=== PATIENT | male | born 1930 | race Caucasian/White ===

== ENCOUNTER 2016-05-24 12:31 | Emergency (ER) | payer OTHER ==
[~2016-05-24 12:31] MED LIST: CHILDREN'S ASPI81 M1 PO; CIPRO 500MG TA500 MG PO; FLAG500 PO; FLUZONE HI180 MCG/02 IM; HYDREA500 M1 PO; NEXIUM 40MG40 MG PO; PROPECIA 1MG1 MG PO
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
[2016-05-24 13:53] LABS: ABSOLUTE BASOPHIL COUNT 0.2 /CUMM (0.0-0.2); ABSOLUTE EOSINOPHIL COUNT 0 /CUMM (0.0-0.7); ABSOLUTE GRANULOCYTE CT 12.4 /CUMM (1.4-6.5); ABSOLUTE LYMPH COUNT 0.7 /CUMM (1.2-3.4); ABSOLUTE MONOCYTE COUNT 0.1 /CUMM (0.10-0.60); BASOPHIL % 1.1 % (0.0-2.0); EOSINOPHIL % 0.2 % (0-5); GRANULOCYTE % 92.2 % (42.2-75.2); MEAN CORPUSCULAR HGB 43.3 PG (27.0-31.0); MEAN CORPUSCULAR HGB CONC 33.1 G/DL (33.0-37.0); MEAN CORPUSCULAR VOLUME 130.8 FL (80.0-94.0); MEAN PLATELET VOLUME 6.9 FL (7.4-10.4); PLATELET COUNT 172 /CUMM (130-400); RBC DISTRIBUTION WIDTH 14.5 % (11.5-14.5); RED BLOOD CELL CT 3.52 /CUMM (4.70-6.10); WHITE BLOOD CELL COUNT 13.5 /CUMM (4.8-10.8)
--- NOTE | 2016-05-24 14:11 | CT SCAN REPORT ---
EXAMINATION: EXAM: CT scan of the head, facial bones and cervical spine. INDICATION: Reason for Study:
Presumptive Dx: FALL, FACIAL STRIKE
Signs Symptoms: RM 17
TECHNIQUE: A noncontrast CT scan was performed from the skull base to the vertex. Facial bone CT. A noncontrast CT scan of the cervical spine was performed from the base of the skull through T1 at 2.5 mm and 1.25 mm collimation. Coronal and sagittal reformats were obtained at the acquisition workstation. Dose length product is 1465 mGy-cm. COMPARISON: None FINDINGS: Head: There is no evidence of acute intracranial hemorrhage or territorial infarction. Gu-white matter differentiation is preserved. No abnormal mass effect or midline shift. No extra-axial fluid collections. No abnormal attenuation is demonstrated within the brain parenchyma. Scattered periventricular and deep white matter hypodensities consistent with microangiopathy. The ventricles and sulcal spaces are proportional without hydrocephalus. Proportional prominence of the ventricles and sulcal spaces. Soft tissue swelling overlying the left frontal region without evidence of underlying fracture. Orbits intact. There is considerable sinus disease throughout. CT FACIAL BONES: No periorbital emphysema. Pansinusitis again noted. Bony orbital margins are essentially intact. Bilateral nasal bone fractures of uncertain chronicity. There is overlying soft tissue swelling suggesting acute chronicity. Cervical Spine: The atlantooccipital and atlantoaxial articulations remain well aligned. Straightening of the normal cervical lordosis. Severe spondylosis most notable at C5-C6 and C6-C7 where there is marked disc space narrowing and minor retrolisthesis on a degenerative basis. Posterior elements appear intact. Spinous processes intact. There is no prevertebral soft tissue swelling. The thyroid gland and remaining cervical soft tissues are normal in appearance. The lung apices demonstrate no abnormalities. IMPRESSION: No acute intracranial pathology. Bilateral nasal bone fractures likely acute. Pansinusitis. Advanced spondylosis but no fracture of the cervical spine.
--- NOTE | 2016-05-24 15:10 | RADIOLOGY REPORT ---
EXAMINATION: XR HAND, LEFT X-RAY KNEE, RIGHT CLINICAL INFORMATION: Status post fall. COMPARISON: X-ray right wrist dated 01/13/2014 and x-ray right knee dated 03/19/2008 TECHNIQUE: AP, lateral, and oblique views of the left hand. 4 views of the right knee FINDINGS: LEFT HAND There is acute dorsal medial dislocation of the distal phalanx noted at the DIP joint fifth finger . Associated compression fracture anterior aspect base of the distal phalanx. Additional avulsion fracture with linear fracture fragment noted proximal to the base of the distal phalanx. Surrounding soft tissue swelling. Degenerative changes noted in multiple interphalangeal joints and first CMC joint. RIGHT KNEE Status post right knee arthroplasty. Intact hardware. No acute fracture or dislocation. Small joint effusion. Atherosclerotic disease with intimal calcification of the popliteal and proximal calf vessels. IMPRESSION: 1. Dorsal medial dislocation with associated fracture DIP joint fifth finger. 2. Impaction and avulsion fracture base of the distal phalanx. 3. No acute osseous injury involving the right knee.
--- NOTE | 2016-05-24 15:38 | RADIOLOGY REPORT ---
EXAMINATION: XR FINGER, LEFT CLINICAL INFORMATION: Status post reduction fifth digit COMPARISON: 05/24/2016 TECHNIQUE: 2 views of the left fifth digit FINDINGS: There has been relocation at the fifth DIP joint. Alignment is near anatomic with some mild residual dorsal subluxation of the distal phalanx relative to the middle phalanx seen on the lateral view. No discrete fracture lines are visualized. IMPRESSION: Reduction of the previously seen dislocation at the fifth DIP joint with residual mild dorsal subluxation of the distal phalanx with respect to the middle phalanx, but otherwise anatomic alignment. No discrete fracture lines are evident.
[2016-05-24 16:00] VITALS: BP 172/78
[2016-05-24] MEDS ORDERED: OMEPRAZOLE40 M1 PO (16:24)
[2016-05-24] MEDS ORDERED: KEFLEX500 M1 PO (16:44)
== END 2016-05-24 17:10 ==
LOC: ERH 12:31
PROVIDERS: Physician Assistant
DX: S63.277A Dislocation of unspecified interphalangeal joint of left little finger, initial encounter (principal); S62.607A Fracture of unspecified phalanx of left little finger, initial encounter for closed fracture; S61.217A Laceration without foreign body of left little finger without damage to nail, initial encounter; S00.83XA Contusion of other part of head, initial encounter; M25.561 Pain in right knee; T14.8 Other injury of unspecified body region; W19.XXXA Unspecified fall, initial encounter
CPT/HCPCS: 73130-LT; 73140-LT; 73562-RT; 90471; 90714

== ENCOUNTER 2016-07-09 14:15 | Emergency (ER) | payer OTHER ==
[~2016-07-09] VITALS: Ht 175.3 cm; Wt 84.4 kg
[~2016-07-09 14:15] MED LIST changes: +KEFLEX500 M1 PO; +OMEPRAZOLE40 M1 PO
== END 2016-07-09 14:38 | disposition admitted as inpatient to this hospital (09) ==
LOC: ERH 14:15
DX: M79.645 Pain in left finger(s) (principal)

== ENCOUNTER 2016-09-04 10:47 | Emergency (ER) | payer OTHER ==
[~2016-09-04] VITALS: Ht 172.7 cm; Wt 83.5 kg
[2016-09-04 11:00] VITALS: BP 168/79
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
--- NOTE | 2016-09-04 12:05 | RADIOLOGY REPORT ---
EXAMINATION: XR TOES, RIGHT CLINICAL INFORMATION: Pain over the second toe. COMPARISON: Left foot radiographs 01/05/2016. TECHNIQUE: 3 views of the right toes were obtained. FINDINGS: There is slight medial subluxation of the base of the proximal second phalanx with respect to the metatarsal head. No clear evidence of acute fracture. There is degenerative narrowing of the first metatarsophalangeal joint space. Bones of midfoot are not well assessed. There is plantar calcaneal spurring. Monckeberg-type medial vascular calcifications are noted. Soft tissues are unremarkable. No evidence of a retained radiodense foreign body. IMPRESSION: Slight medial subluxation of the base of the proximal second phalanx with respect to the metatarsal head. No clear evidence of acute fracture.
== END 2016-09-04 12:38 ==
LOC: ERH 10:47
DX: S90.414A Abrasion, right lesser toe(s), initial encounter (principal); S90.121A Contusion of right lesser toe(s) without damage to nail, initial encounter; W22.8XXA Striking against or struck by other objects, initial encounter; Y93.9 Activity, unspecified; Y92.9 Unspecified place or not applicable
CPT/HCPCS: 73660-RT

== ENCOUNTER 2017-12-04 11:51 | Inpatient (IN) | payer OTHER ==
[~2017-12-04] VITALS: Ht 175.3 cm; Wt 79.5 kg
[~2017-12-04 11:51] MED LIST changes: +HYDROXYUREA500 M1 PO
[2017-12-04 12:36] LABS: ABSOLUTE LYMPH COUNT 1.3 /CUMM (1.2-3.4)
[2017-12-04 12:42] LABS: ABSOLUTE BASOPHIL COUNT 0 /CUMM (0.0-0.2); ABSOLUTE EOSINOPHIL COUNT 0.3 /CUMM (0.0-0.7); BASOPHIL % 0.1 % (0.0-2.0); EOSINOPHIL % 0.5 % (0-5); GRANULOCYTE % 94.9 % (42.2-75.2); HEMATOCRIT 46.3 % (42-52); MEAN CORPUSCULAR HGB 36.7 PG (27.0-31.0); MEAN CORPUSCULAR HGB CONC 33.8 G/DL (33.0-37.0); MEAN CORPUSCULAR VOLUME 108.7 FL (80.0-94.0); PLATELET COUNT 275 /CUMM (130-400); RBC DISTRIBUTION WIDTH 15.1 % (11.5-14.5); RED BLOOD CELL CT 4.26 /CUMM (4.70-6.10)
[2017-12-04 12:46] LABS: WHITE BLOOD CELL COUNT 50.6 /CUMM (4.8-10.8)
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
--- NOTE | 2017-12-04 14:00 | RADIOLOGY REPORT ---
EXAMINATION: XR CHEST CLINICAL INFORMATION: Dyspnea. Assess for cardiopulmonary process or hiatal hernia. COMPARISON: There are no recent prior studies available for comparison. Comparison was made to a chest x-ray 02/20/2010. TECHNIQUE: Frontal and lateral views of the chest were obtained. FINDINGS: The lung gillespie are well expanded and appear clear bilaterally. The cardiac silhouette is normal. There is mild unfolding of the aortic arch on the current study. There are no pleural effusions or pneumothorax. The central pulmonary vasculature is normal. The hilar regions appear normal. There are no acute osseous findings. IMPRESSION: 1. There are no acute cardiopulmonary findings.
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
--- NOTE | 2017-12-04 17:37 | CT SCAN REPORT ---
EXAMINATION: CT ANGIOGRAPHY CHEST CT ABDOMEN AND PELVIS WITH CONTRAST CLINICAL INFORMATION: Chest pain. Shortness of breath. Periumbilical epigastric pain. COMPARISON: Chest x-ray 12/04/2017. Abdomen 02/03/2017. CT scan pelvis 09/19/2015. CT scan abdomen and pelvis 05/01/2015. TECHNIQUE: A noncontrast localizer was performed, followed by the administration of 95 mL Optiray [address] of the chest was then performed. Coronal and sagittal reformatted and 3-D technique MIP images of the chest were completed at the CT scanner and reviewed on the PACS workstation. No adverse effects were reported. Images were then performed through the abdomen and pelvis. Coronal and sagittal reformatted images performed at CT scanner by technologist. DLP: 1349.34 mGy-cm. FINDINGS: Patient was imaged with the arms at the side which causes artifact. 1. CTA CHEST: Vascular: The main pulmonary artery, secondary and tertiary branches of the pulmonary artery are normally opacified with no evidence of pulmonary embolism. The aorta and great vessels are unremarkable. Mediastinum: There is diffuse thickening of the esophageal wall from thoracic inlet through the GE junction. There is no inflammation of the mediastinum. No mediastinal mass. No significant lymphadenopathy. There is no pericardial effusion. Lungs: The lungs are clear. No nodule or infiltrate. Central bronchial airways open. Fluid: There is a minimal dependent right pleural effusion. There is no left pleural effusion. Axilla: No significant lymphadenopathy. 2. CT SCAN ABDOMEN PELVIS: Liver, Gallbladder, and Biliary Tree: There is mild low attenuation of liver parenchyma due to fatty change. There is no focal liver lesion. There is no intrahepatic bile duct dilatation. Right lobe of liver measures 19 cm superior inferior. The gallbladder is unremarkable with no evidence of radiopaque gallstones, gallbladder wall thickening, or obvious pericholecystic inflammatory changes. Pancreas: Unremarkable. Spleen: The spleen is mildly enlarged measuring 14 cm AP. No focal splenic lesion. Adrenal Glands: Unremarkable. Kidneys and Ureters: There are parapelvic cysts in both kidneys. There is no renal or ureteral calculus. There is no hydronephrosis. Bladder: Unremarkable. Gastrointestinal Tract: There is diverticulosis of the colon. The diverticula are most significant in the left colon and sigmoid but are present throughout the colon. There is no diverticulitis. There is no edema in the pericolonic fat. There is mild bowel wall thickening of the distal rectum and sigmoid again without edema in the surrounding fat. This is of uncertain significance. There is no obstruction. There is a small volume of scattered stool through the colon. The appendix is not visualized. The small-bowel loops are unremarkable. Abdominal Wall: No significant hernia is appreciated. Lymph Nodes: Normal. Vascular: There are atherosclerotic vascular wall calcifications of the abdomen and pelvis. There is no aneurysm of the aorta. Pelvic Viscera: The prostate measures 4.5 cm transverse. The seminal vesicles are unremarkable. Osseous Structures: No acute osseous abnormality. There is degenerative spondylosis of thoracic and lumbar spine with disc height narrowing, endplate spurring and facet joint arthrosis. There is a levoscoliosis of the mid lumbar spine. IMPRESSION: 1. No evidence of pulmonary embolism. Trace right pleural effusion layering dependently. The lungs are clear. 2. Diffuse thickening of the esophageal wall. Question of an esophagitis. No edema within the mediastinal fat. No inflammation of the mediastinum. 3. There is mild bowel wall thickening of the distal rectum and sigmoid without pericolonic edema. Of uncertain significance. No bowel obstruction. There is diverticulosis of the colon without diverticulitis. 4. Mild splenomegaly.
--- NOTE | 2017-12-04 18:03 | PN- Att Addend ---
Attending Addendum Attending Brief Note 86-year-old white male poor historian and probably not compliant with his medications. With a history of blood dyscrasia has not taken his medication for at least a year. Her daughter is place is very warm and does not like to use air conditioning. For a few days has been complaining of not feeling well having some hiccups some left chest discomfort especially when he has the hiccups. Maybe some urinary symptoms he cannot be specific with anything and comes to the emergency room his white count is higher than usual even though he normally runs a high white count. Will evaluate to see if there is any acute infection. Will have a swallowing evaluation he has been complaining of dysphagia and with the hiccups make sure there is no inflammation of the phrenic nerve. 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 Will hold off with antibiotics for now until we have any definite sign of infection Current Medications Sig/Som Start time Last Medication Dose Route Stop Time Status Admin Acetaminophen 650 MG Q8P PRN 12/04 1530 AC PO Aspirin 81 MG DAILY 12/05 0900 AC PO Aspirin 325 MG ONCE ONE 12/04 1545 DC 12/04 PO 12/04 1546 1600 Aspirin 0 .STK-MED ONE 12/04 1538 DC PO Heparin Sodium 5,000 UNIT Q8 12/04 2200 AC (Porcine) SC Morphine Sulfate 2 MG Q8P PRN 12/04 1700 AC IV Omeprazole 40 MG DAILY AC 12/05 0700 AC PO Ondansetron HCl 4 MG Q6P PRN 12/04 1530 AC IV Sodium Chloride 1,000 ML ONCE ONE 12/04 1530 AC 12/04 IV 12/05 0129 1600 Tamsulosin HCl 0.4 MG DAILY 12/05 0900 AC PO Tramadol HCl 50 MG Q8P PRN 12/04 1700 AC PO Laboratory Tests 12/04/17 1315: Anion Gap 9, Estimated GFR > 60, BUN/Creatinine Ratio 13.0, Glucose 144 H, Serum Osmolality 281 L, Lactic Acid 1.9, Uric Acid 8.4, Calcium 9.0, Magnesium 2.1, Total Bilirubin 1.2, AST 18, ALT 30, Alkaline Phosphatase 94, Troponin I < 0.01, Total Protein 8.0, Albumin 4.7, Globulin 3.3, Albumin/Globulin Ratio 1.4, Lipase 17 L, Free T4 1.27, Total T3 Pending, TSH &T3 &Free T4 Intrp 5.400 H 12/04/17 1220: CBC w Diff MAN DIFF ORDERED, RBC 4.26 L, MCV 108.7 H, MCH 36.7 H, MCHC 33.8, RDW 15.1 H, MPV 8.0, Gran % 94.9 H, Lymphocytes % 2.6 L, Monocytes % 1.9, Eosinophils % 0.5, Basophils % 0.1, Absolute Granulocytes 48.0 H, Segmented Neutrophils 84 H, Band Neutrophils 6 H, Absolute Lymphocytes 1.3, Lymphocytes 6 L, Monocytes 3, Absolute Monocytes 1.0 H, Absolute Eosinophils 0.3, Absolute Basophils 0, Metamyelocytes 1, Platelet Estimate ADEQUATE, Normocytic RBCs VERIFIED, Normochromic RBCs VERIFIED, Polychromasia Vital Signs Date Time Temp Pulse Resp B/P B/P Pulse O2 O2 Flow FiO2 Mean Ox Delivery Rate 12/04 1738 98.2 90 18 129/76 95 Room Air Room Air 12/04 1249 97 Room Air Room Air 12/04 1201 97.4 84 16 181/73 95 Room Air Intake & Output 12/04 1600 Intake Total Output Total Balance Patient 185 lb Weight Chest x-ray showed no acute pathology. Ditty CT scan showed no pulmonary emboli but show some abnormalities in the esophagus. Patient is having some dysphagia and having some hiccups. Will probably need a GI evaluation while in the hospital.
[2017-12-04 18:16] VITALS: BP 112/54
[2017-12-04 21:35] VITALS: BP 130/58
--- NOTE | 2017-12-05 05:38 | PN- Housestaff ---
Subjective Follow-up For: Pickups, chest pain, abdominal pain Complaints: no complaints Tele-Events Since Last Visit: No significant telemetry events noted Subjective: Patient was examined bedside , he was trying to sleep when i went in, however woke up, he is hard of hearing and could not hear my questions which limited my examination. However complained of severe abdominal pain and hiccups . th pain is substernal / epigastric. The hiccups limited the examination. Review of Systems Constitutional: Reports: see HPI. Cardiovascular: Reports: chest pain. Denies: edema, orthopena, palpitations, peripheral edema, syncope. Respiratory: Reports: short of breath. Denies: cough, hemoptysis, orthopnea, sputum production, stridor, wheezing. Gastrointestinal: Reports: abdominal pain. Denies: bloating, constipation, diarrhea, distention, bowel incontinence, melena, changes in stool, vomiting, steatorrhea. Genitourinary: Denies: dysuria, frequency, hematuria, hesitation, nocturia. Objective Last 24 Hrs of Vital Signs/I&O Vital Signs Date Time Temp Pulse Resp B/P B/P Pulse O2 O2 Flow FiO2 Mean Ox Delivery Rate 12/05 1458 98.7 82 18 120/70 93 Room Air 12/05 1039 90 130/70 12/05 0600 98.2 78 18 132/64 93 Room Air 12/04 2144 Room Air 12/04 2135 98.1 73 18 130/58 95 Room Air Intake & Output 12/05 1600 12/05 0800 12/05 0000 Intake Total 480 800 350 Output Total 400 100 375 Balance 80 700 -25 Intake, IV 800 350 Intake, Oral 480 Output, Urine 400 100 375 Patient 174 lb Weight Weight Bed scale Measurement Method Physical Exam General Appearance: Alert, Oriented X3, Cooperative HEENT: HARD OF HEARING Cardiovascular: Regular Rate, No Murmurs Lungs: Clear to Auscultation, Normal Air Movement Abdomen: Soft, TENDERNESS PRESENT Neurological: Normal Speech, Strength at 5/5 X4 Ext, Normal Tone, Sensation Intact Current Medications: Current Medications Sig/Som Start time Last Medication Dose Route Stop Time Status Admin Acetaminophen 650 MG Q8P PRN 12/04 1530 AC PO Aspirin 81 MG DAILY 12/05 0900 AC 12/05 PO 1039 Baclofen 10 MG TID 12/05 0900 DC PO Baclofen 10 MG TID 12/05 0730 AC 12/05 PO 1443 Heparin Sodium 5,000 UNIT Q8 12/04 2200 AC 12/05 (Porcine) SC 1443 Morphine Sulfate 2 MG ONCE ONE 12/05 0800 DC 12/05 IV 12/05 0801 0753 Morphine Sulfate 100 MG CONTINOUS INFUSION 12/05 0730 DC Sodium Chloride 48 ML IV 12/08 0729 Morphine Sulfate 2 MG Q8P PRN 12/04 1700 AC 12/05 IV 1049 Omeprazole 40 MG DAILY AC 12/05 0700 DC 12/05 PO 0549 Ondansetron HCl 4 MG Q6P PRN 12/04 1530 AC 12/04 IV 1817 Pantoprazole Sodium 40 MG DAILY 12/06 0900 DC IV Pantoprazole Sodium 40 MG DAILY 12/05 0900 AC 12/05 IV 1039 Patient Medication 1 ED ONE ONE 12/05 1800 DC Teaching ED 12/05 1801 Sodium Chloride 1,000 ML ONCE ONE 12/04 1530 DC 12/04 IV 12/05 0129 1600 Tamsulosin HCl 0.4 MG DAILY 12/05 0900 AC 12/05 PO 1039 Tramadol HCl 50 MG Q8P PRN 12/04 1700 AC PO Last 24 Hrs of Lab/Diego Results Last 24 Hrs of Labs/Mics: Laboratory Tests 12/05/17 0600: Anion Gap 8, Estimated GFR > 60, BUN/Creatinine Ratio 12.2, Troponin I < 0.01, CBC w Diff MAN DIFF ORDERED, RBC 3.63 L, MCV 109.8 H, MCH 37.1 H, MCHC 33.8, RDW 15.1 H, MPV 8.1, Gran % 90.8 H, Lymphocytes % 5.4 L, Monocytes % 2.6, Eosinophils % 0.9, Basophils % 0.3, Absolute Granulocytes 32.1 H, Segmented Neutrophils 87 H, Band Neutrophils 5, Absolute Lymphocytes 1.9, Lymphocytes 5 L, Monocytes 1 L, Absolute Monocytes 0.9 H, Eosinophils 1, Absolute Eosinophils 0.3, Absolute Basophils 0.1, Metamyelocytes 1, Platelet Estimate ADEQUATE, Macrocytic Cells 1+ 12/05/17 0015: Troponin I < 0.01 12/04/17 1830: Troponin I < 0.01 Assessment/Plan Assessment: Mr. Hamm is an 86-year-old man with PM Hx of nonspecific myeloproliferative disease, previous C. difficile infection, came in with hiccups, epigastric pain, chest pain. Serial EKGs, troponins were negative . CT chest abdomen showed thickening of the esophagus. No pulmonary embolism or pleural effusion noted. #1 hiccups 2 myeloproliferative dyscrasialeukocytosis Plan Prescribe baclofen, morphine, pantoprazole IV Patient symptoms resolved Continue hydroxyurea as per Dr. Rodríguez recommendations We will be evaluated by GI, GI consult placed Patient's vitals are stable, ACS has been ruled out, renal functions are normal. We will observe the patient off telemetry Problem List: 1. Myeloproliferative disease 2. Chest pain 3. Abdominal pain Pain Ratin Pain Location: [facility] Pain Goal: Remain pain free Pain Plan: NONE Tomorrow's Labs & Rationales: BEP, CBC
[2017-12-05 06:00] VITALS: BP 132/64
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
[2017-12-05 07:52] LABS: ABSOLUTE BASOPHIL COUNT 0.1 /CUMM (0.0-0.2); RBC DISTRIBUTION WIDTH 15.1 % (11.5-14.5); RED BLOOD CELL CT 3.63 /CUMM (4.70-6.10)
[2017-12-05 08:03] LABS: ABSOLUTE EOSINOPHIL COUNT 0.3 /CUMM (0.0-0.7); ABSOLUTE GRANULOCYTE CT 32.1 /CUMM (1.4-6.5); ABSOLUTE LYMPH COUNT 1.9 /CUMM (1.2-3.4); ABSOLUTE MONOCYTE COUNT 0.9 /CUMM (0.10-0.60); BASOPHIL % 0.3 % (0.0-2.0); EOSINOPHIL % 0.9 % (0-5); GRANULOCYTE % 90.8 % (42.2-75.2); MEAN CORPUSCULAR HGB 37.1 PG (27.0-31.0); MEAN CORPUSCULAR HGB CONC 33.8 G/DL (33.0-37.0); MEAN CORPUSCULAR VOLUME 109.8 FL (80.0-94.0); MEAN PLATELET VOLUME 8.1 FL (7.4-10.4); PLATELET COUNT 249 /CUMM (130-400)
[2017-12-05 08:08] LABS: HEMATOCRIT 39.9 % (42-52); WHITE BLOOD CELL COUNT 35.3 /CUMM (4.8-10.8)
--- NOTE | 2017-12-05 11:03 | PN- Att Addend ---
Attending Addendum Attending Brief Note Appreciate Dr. Bautista's input and recommendations and clarification about his medications. Patient still complaining of GI symptoms. Patient will be seen by GI to evaluate the symptoms of the hiccups and abnormal esophageal findings on CAT scan and the pain. His vital signs are stable no fever. No major changes in physical examination. Will continue present treatment restart the hydroxyurea when the patient is able to take p.o. and follow GIs recommendations. 24 TOTALS 12/05 0000 12/04 0000 Intake Total 350 Output Total 375 Balance -25 Intake, IV 350 Output, Urine 375 Patient 174 lb Weight Weight Bed scale Measurement Method Current Medications Sig/Som Start time Last Medication Dose Route Stop Time Status Admin Acetaminophen 650 MG Q8P PRN 12/04 1530 AC PO Aspirin 81 MG DAILY 12/05 0900 AC 12/05 PO 1039 Aspirin 325 MG ONCE ONE 12/04 1545 DC 12/04 PO 12/04 1546 1600 Aspirin 0 .STK-MED ONE 12/04 1538 DC PO Baclofen 10 MG TID 12/05 0900 DC PO Baclofen 10 MG TID 12/05 0730 AC 12/05 PO 1039 Heparin Sodium 5,000 UNIT Q8 12/04 2200 AC 12/05 (Porcine) SC 0550 Morphine Sulfate 2 MG ONCE ONE 12/05 0800 DC 12/05 IV 12/05 0801 0753 Morphine Sulfate 100 MG CONTINOUS INFUSION 12/05 0730 DC Sodium Chloride 48 ML IV 12/08 0729 Morphine Sulfate 2 MG Q8P PRN 12/04 1700 AC 12/05 IV 1049 Omeprazole 40 MG DAILY AC 12/05 0700 DC 12/05 PO 0549 Ondansetron HCl 4 MG Q6P PRN 12/04 1530 AC 12/04 IV 1817 Pantoprazole Sodium 40 MG DAILY 12/06 0900 DC IV Pantoprazole Sodium 40 MG DAILY 12/05 0900 AC 12/05 IV 1039 Sodium Chloride 1,000 ML ONCE ONE 12/04 1530 DC 12/04 IV 12/05 0129 1600 Tamsulosin HCl 0.4 MG DAILY 12/05 0900 AC 12/05 PO 1039 Tramadol HCl 50 MG Q8P PRN 12/04 1700 AC PO Laboratory Tests 12/05/ 0600: Anion Gap 8, Estimated GFR > 60, BUN/Creatinine Ratio 12.2, Troponin I < 0.01, CBC w Diff MAN DIFF ORDERED, RBC 3.63 L, MCV 109.8 H, MCH 37.1 H, MCHC 33.8, RDW 15.1 H, MPV 8.1, Gran % 90.8 H, Lymphocytes % 5.4 L, Monocytes % 2.6, Eosinophils % 0.9, Basophils % 0.3, Absolute Granulocytes 32.1 H, Segmented Neutrophils 87 H, Band Neutrophils 5, Absolute Lymphocytes 1.9, Lymphocytes 5 L, Monocytes 1 L, Absolute Monocytes 0.9 H, Eosinophils 1, Absolute Eosinophils 0.3, Absolute Basophils 0.1, Metamyelocytes 1, Platelet Estimate ADEQUATE, Macrocytic Cells 1+ 12/05/17 0015: Troponin I < 0.01 12/04/17 1830: Troponin I < 0.01 12/04/17 1315: Anion Gap 9, Estimated GFR > 60, BUN/Creatinine Ratio 13.0, Glucose 144 H, Serum Osmolality 281 L, Lactic Acid 1.9, Uric Acid 8.4, Calcium 9.0, Magnesium 2.1, Total Bilirubin 1.2, AST 18, ALT 30, Alkaline Phosphatase 94, Troponin I < 0.01, Total Protein 8.0, Albumin 4.7, Globulin 3.3, Albumin/Globulin Ratio 1.4, Lipase 17 L, Free T4 1.27, Total T3 1.31, TSH &T3 &Free T4 Intrp 5.400 H 12/04/17 1220: CBC w Diff MAN DIFF ORDERED, RBC 4.26 L, MCV 108.7 H, MCH 36.7 H, MCHC 33.8, RDW 15.1 H, MPV 8.0, Gran % 94.9 H, Lymphocytes % 2.6 L, Monocytes % 1.9, Eosinophils % 0.5, Basophils % 0.1, Absolute Granulocytes 48.0 H, Segmented Neutrophils 84 H, Band Neutrophils 6 H, Absolute Lymphocytes 1.3, Lymphocytes 6 L, Monocytes 3, Absolute Monocytes 1.0 H, Absolute Eosinophils 0.3, Absolute Basophils 0, Metamyelocytes 1, Platelet Estimate ADEQUATE, Normocytic RBCs VERIFIED, Normochromic RBCs VERIFIED, Polychromasia Vital Signs Date Time Temp Pulse Resp B/P B/P Pulse O2 O2 Flow FiO2 Mean Ox Delivery Rate 12/05 1039 90 130/70 12/05 0600 98.2 78 18 132/64 93 Room Air 08/23 2144 Room Air 08/23 2135 98.1 73 18 130/58 95 Room Air 08/23 1823 Room Air 08/23 1816 98.7 83 18 112/54 95 Room Air 08/23 1738 98.2 90 18 129/76 95 Room Air Room Air 08/23 1249 97 Room Air Room Air 08/23 1201 97.4 84 16 181/73 95 Room Air Troponins are negative for cardiac ischemia
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
[2017-12-05 14:58] VITALS: BP 120/70
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
[2017-12-05 22:01] VITALS: BP 108/54
[2017-12-06 06:41] VITALS: BP 118/64
[2017-12-06 07:36] LABS: ABSOLUTE BASOPHIL COUNT 0 /CUMM (0.0-0.2); ABSOLUTE EOSINOPHIL COUNT 0.6 /CUMM (0.0-0.7); ABSOLUTE GRANULOCYTE CT 29.3 /CUMM (1.4-6.5); ABSOLUTE LYMPH COUNT 1.5 /CUMM (1.2-3.4); ABSOLUTE MONOCYTE COUNT 0.9 /CUMM (0.10-0.60); BASOPHIL % 0.1 % (0.0-2.0); EOSINOPHIL % 1.8 % (0-5); GRANULOCYTE % 90.7 % (42.2-75.2); HEMATOCRIT 38.5 % (42-52); MEAN CORPUSCULAR HGB 37.1 PG (27.0-31.0); MEAN CORPUSCULAR HGB CONC 33.8 G/DL (33.0-37.0); MEAN CORPUSCULAR VOLUME 109.7 FL (80.0-94.0); MEAN PLATELET VOLUME 7.8 FL (7.4-10.4); PLATELET COUNT 229 /CUMM (130-400); RBC DISTRIBUTION WIDTH 15.3 % (11.5-14.5); RED BLOOD CELL CT 3.52 /CUMM (4.70-6.10)
[2017-12-06 07:53] LABS: WHITE BLOOD CELL COUNT 32.3 /CUMM (4.8-10.8)
--- NOTE | 2017-12-06 09:15 | PN- Housestaff ---
Subjective Follow-up For: chest pain Subjective: Patient was examined resting comfortably in bed. No events ovents overnight per nursnig. Patient seems somewhat confused. He asked me for breakfast and soup although refused breakfast when nursing came by. Review of Systems Constitutional: Reports: see HPI. Objective Last 24 Hrs of Vital Signs/I&O Vital Signs Date Time Temp Pulse Resp B/P B/P Pulse O2 O2 Flow FiO2 Mean Ox Delivery Rate 12/06 0822 70 128/70 12/06 0641 98.5 74 20 118/64 92 Room Air 12/05 2201 99.1 87 18 108/54 93 Room Air 12/05 1458 98.7 82 18 120/70 93 Room Air Intake & Output 12/06 1600 12/06 0800 12/06 0000 Intake Total 120 120 Output Total 400 600 Balance -280 -480 Intake, Oral 120 120 Output, Urine 400 600 Patient 175 lb Weight Weight Bed scale Measurement Method Physical Exam General Appearance: Alert, No Acute Distress Neck: Supple, No JVD Cardiovascular: Normal S1, Normal S2 Lungs: Clear to Auscultation Abdomen: Normal Bowel Sounds, Soft, No Tenderness Current Medications: Current Medications Sig/Som Start time Last Medication Dose Route Stop Time Status Admin Acetaminophen 650 MG Q8P PRN 12/04 1530 AC PO Aspirin 81 MG DAILY 12/05 09 AC 12/06 PO 08 Baclofen 10 MG TID 12/05 0730 DC 12/06 PO 2020 Heparin Sodium 5,000 UNIT Q8 12/04 2200 AC 12/07 (Porcine) SC 0611 Morphine Sulfate 2 MG Q8P PRN 12/04 1700 AC 12/05 IV 1827 Ondansetron HCl 4 MG Q6P PRN 12/04 1530 AC 12/04 IV 1817 Pantoprazole Sodium 40 MG BID 12/05 2100 AC 12/06 IV 2020 Polyethylene Glycol 17 GM DAILY 12/06 1450 AC 12/06 PO 2020 Sucralfate 1 GM 4 TIMES/DAY 12/05 2100 AC 12/06 PO 2019 Tamsulosin HCl 0.4 MG DAILY 12/05 0900 AC 12/06 PO 08 Tramadol HCl 50 MG Q8P PRN 12/04 1700 AC PO Assessment/Plan Assessment: Mr. Hamm is an 86-year-old man with PM Hx of nonspecific myeloproliferative disease, previous C. difficile infection, came in with hiccups, epigastric pain, chest pain. Serial EKGs, troponins were negative . CT chest abdomen showed thickening of the esophagus. No pulmonary embolism or pleural effusion noted. # hiccups/chest pain # myeloproliferative dyscrasialeukocytosis Chest pain is completley reproducible with slight pressure, strong pressure, position changes, and hiccups. Most likely not cardiac etiology. Plan - ACS ruled out - Baclofen, morphine, pantoprazole IV Patient symptoms resolved Continue hydroxyurea as per heme/onc recs GI consult pending Patient's vitals are stable ACS has been ruled out Renal functions are normal Observe the patient off telemetry DVT ppx Full Code Problem List: 1. Chest pain Pain Ratin Pain Location: n/a Pain Goal: Remain pain free Pain Plan: per pathway Tomorrow's Labs & Rationales: CBC
--- NOTE | 2017-12-06 13:02 | PN- Att Addend ---
Attending Addendum Attending Brief Note Mr. Vee was sleeping soundly and unable to be awakened at the time of my visit. History and examination by his resident was reviewed. As noted above he is sleeping soundly and is in no acute distress. He is afebrile with stable and satisfactory vital signs. He does not appear to be having any hiccups at the time of my visit. His laboratory studies remained stable. Cardiology and gastroenterology notes were reviewed. GI suggestions for management have been implemented. We will continue to follow to see if there is provement or resolution of his symptoms. Mr. Vee was revisited. When questioned he states that his hiccups are much improved today.
--- NOTE | 2017-12-06 13:12 | PN- Gastroenterology ---
Assessment/Plan GI Assessment/Recommendations: 1. Atypical chest pain. This continues, and seems to be associated with odynophagia. 2. Abdominal pain. Improved this morning. 3. Hiccuping. None obvious today. 4. Abnormal rectum on CT. Recommendations: * Continue IV PPI twice a day * Continue sucralfate suspension * If recurrence of hiccuping, consider metoclopramide 10 mg by mouth or IV 4 times a day, and discontinuing baclofen * EGD after weekend * Diet as tolerated Subjective Subjective: Poor historian. He admits to continued chest pain, worse with eating/swallowing , although improved from yesterday. Diminished abdominal pain. No hiccuping noted this morning. Objective Vital Signs and I&Os Vital Signs Date Time Temp Pulse Resp B/P B/P Pulse O2 O2 Flow FiO2 Mean Ox Delivery Rate 12/06 821 70 128/70 12/06 0641 98.5 74 20 118/64 92 Room Air 12/05 2201 99.1 87 18 108/54 93 Room Air 12/05 1458 98.7 82 18 120/70 93 Room Air Intake & Output 12/06 1600 12/06 0400 12/05 1600 12/05 0400 12/04 1600 12/04 0400 Intake Total 568 105 0090 350 Output Total 400 600 500 375 Balance -280 -480 780 -25 Intake, IV 800 350 Intake, Oral 120 120 480 Output, Urine 400 600 500 375 Patient 175 lb 174 lb 185 lb Weight Weight Bed scale Bed scale Measurement Method Physical Exam: Elderly, no apparent distress. Sclera anicteric. Abdomen nontender. Current Medications: Current Medications Sig/Som Start time Last Medication Dose Route Stop Time Status Admin Acetaminophen 650 MG Q8P PRN 12/04 1530 AC PO Aspirin 81 MG DAILY 12/05 0900 AC 12/06 PO 0822 Baclofen 10 MG TID 12/05 0730 AC 12/06 PO 0822 Heparin Sodium 5,000 UNIT Q8 12/04 2200 AC 12/06 (Porcine) SC 0506 Metoclopramide HCl 10 MG ONCE ONE 12/06 0515 DC IV 12/06 0516 Morphine Sulfate 2 MG Q8P PRN 12/04 1700 AC 12/05 IV 1827 Ondansetron HCl 4 MG Q6P PRN 12/04 1530 AC 12/04 IV 1817 Pantoprazole Sodium 40 MG BID 12/05 2099 AC 12/06 IV 0822 Pantoprazole Sodium 40 MG DAILY 12/05 0900 DC 12/05 IV 1039 Patient Medication 1 ED ONE ONE 12/05 1800 DC Teaching ED 12/05 1801 Sucralfate 1 GM PC AND AT BEDTIME 12/05 2099 DC PO Sucralfate 1 GM 4 TIMES/DAY 12/05 2099 AC 12/06 PO 08 Tamsulosin HCl 0.4 MG DAILY 12/05 0900 AC 12/06 PO 08 Tramadol HCl 50 MG Q8P PRN 12/04 1700 AC PO Results Pertinent Lab Results: Laboratory Tests 12/06 12/05 0621 0600 Chemistry Sodium (137 - 145 mmol/L) 134 L 136 L Potassium (3.5 - 5.1 mmol/L) 4.3 4.5 Chloride (98 - 107 mmol/L) 100 100 Carbon Dioxide (22 - 30 mmol/L) 25 29 Anion Gap (5 - 16) 9 8 BUN (9 - 20 mg/dL) 15 11 Creatinine (0.7 - 1.2 mg/dL) 1.1 0.9 Estimated GFR (>60 ml/min) > 60 > 60 BUN/Creatinine Ratio (7 - 25 %) 13.6 12.2 Troponin I (<0.11 ng/ml) < 0.01 Hematology CBC w Diff MAN DIFF ORDERED MAN DIFF ORDERED WBC (4.8 - 10.8 /CUMM) 32.3 *H 35.3 *H RBC (4.70 - 6.10 /CUMM) 3.52 L 3.63 L Hgb (14.0 - 18.0 G/DL) 13.1 L 13.5 L Hct (42 - 52 %) 38.5 L 39.9 L MCV (80.0 - 94.0 FL) 109.7 H 109.8 H MCH (27.0 - 31.0 PG) 37.1 H 37.1 H MCHC (33.0 - 37.0 G/DL) 33.8 33.8 RDW (11.5 - 14.5 %) 15.3 H 15.1 H Plt Count (130 - 400 /CUMM) 229 249 MPV (7.4 - 10.4 FL) 7.8 8.1 Gran % (42.2 - 75.2 %) 90.7 H 90.8 H Lymphocytes % (20.5 - 51.1 %) 4.7 L 5.4 L Monocytes % (1.7 - 9.3 %) 2.7 2.6 Eosinophils % (0 - 5 %) 1.8 0.9 Basophils % (0.0 - 2.0 %) 0.1 0.3 Absolute Granulocytes (1.4 - 6.5 /CUMM) 29.3 H 32.1 H Segmented Neutrophils (42.2 - 75.2 %) 79 H 87 H Band Neutrophils (0.0 - 5.0 %) 8 H 5 Absolute Lymphocytes (1.2 - 3.4 /CUMM) 1.5 1.9 Lymphocytes (20.5 - 51.1 %) 5 L 5 L Monocytes (1.7 - 9.3 %) 2 1 L Absolute Monocytes (0.10 - 0.60 /CUMM) 0.9 H 0.9 H Eosinophils (0 - 5.0 %) 3 1 Absolute Eosinophils (0.0 - 0.7 /CUMM) 0.6 0.3 Basophils (0.0 - 2.0 %) 2 Absolute Basophils (0.0 - 0.2 /CUMM) 0 0.1 Metamyelocytes (0.0 - 1.0 %) 1 1 Platelet Estimate (ADEQUATE) VERIFIED BY SMEAR ADEQUATE Polychromasia 1+ Anisocytosis 1+ Macrocytic Cells 1+ 12/05 12/04 12/04 12/04 0015 1830 1402 1402 Chemistry Troponin I (<0.11 ng/ml) < 0.01 < 0.01 Urines Urine Color Cancelled Urine Clarity Cancelled Urine pH Cancelled Ur Specific [place] Cancelled Urine Protein Cancelled Urine Ketones Cancelled Urine Nitrite Cancelled Urine Bilirubin Cancelled Urine Urobilinogen Cancelled Ur Leukocyte Esterase Cancelled Ur Microscopic Cancelled Urine Hemoglobin Cancelled Urine Osmolality Cancelled Ur Random Creatinine Cancelled Ur Random Sodium Cancelled Ur Random Potassium Cancelled Fraction Sodium Excret Cancelled Urine Glucose Cancelled 12/04 12/04 1315 1220 Chemistry Sodium (137 - 145 mmol/L) 134 L Potassium (3.5 - 5.1 mmol/L) 4.9 Chloride (98 - 107 mmol/L) 92 L Carbon Dioxide (22 - 30 mmol/L) 32 H Anion Gap (5 - 16) 9 BUN (9 - 20 mg/dL) 13 Creatinine (0.7 - 1.2 mg/dL) 1.0 Estimated GFR (>60 ml/min) > 60 BUN/Creatinine Ratio (7 - 25 %) 13.0 Glucose (65 - 99 mg/dL) 144 H Serum Osmolality (285 - 295 MOSM/KG) 281 L Lactic Acid (0.7 - 2.1 mmol/L) 1.9 Uric Acid (3.5 - 8.5 mg/dL) 8.4 Calcium (8.4 - 10.2 mg/dL) 9.0 Magnesium (1.6 - 2.3 mg/dL) 2.1 Total Bilirubin (0.2 - 1.3 mg/dL) 1.2 AST (17 - 59 U/L) 18 ALT (21 - 72 U/L) 30 Alkaline Phosphatase (< 127 U/L) 94 Troponin I (<0.11 ng/ml) < 0.01 Total Protein (6.3 - 8.2 g/dL) 8.0 Albumin (3.5 - 5.0 g/dL) 4.7 Globulin (1.9 - 4.2 gm/dL) 3.3 Albumin/Globulin Ratio (1.1 - 2.2 %) 1.4 Lipase (23 - 300 U/L) 17 L Free T4 (0.85 - 1.93 ng/dL) 1.27 Total T3 (0.97 - 1.69 ng/mL) 1.31 TSH &T3 &Free T4 Intrp (0.27 - 4.20 uIU/mL) 5.400 H Hematology CBC w Diff MAN DIFF ORDERED WBC (4.8 - 10.8 /CUMM) 50.6 *H RBC (4.70 - 6.10 /CUMM) 4.26 L Hgb (14.0 - 18.0 G/DL) 15.6 Hct (42 - 52 %) 46.3 MCV (80.0 - 94.0 FL) 108.7 H MCH (27.0 - 31.0 PG) 36.7 H MCHC (33.0 - 37.0 G/DL) 33.8 RDW (11.5 - 14.5 %) 15.1 H Plt Count (130 - 400 /CUMM) 275 MPV (7.4 - 10.4 FL) 8.0 Gran % (42.2 - 75.2 %) 94.9 H Lymphocytes % (20.5 - 51.1 %) 2.6 L Monocytes % (1.7 - 9.3 %) 1.9 Eosinophils % (0 - 5 %) 0.5 Basophils % (0.0 - 2.0 %) 0.1 Absolute Granulocytes (1.4 - 6.5 /CUMM) 48.0 H Segmented Neutrophils (42.2 - 75.2 %) 84 H Band Neutrophils (0.0 - 5.0 %) 6 H Absolute Lymphocytes (1.2 - 3.4 /CUMM) 1.3 Lymphocytes (20.5 - 51.1 %) 6 L Monocytes (1.7 - 9.3 %) 3 Absolute Monocytes (0.10 - 0.60 /CUMM) 1.0 H Absolute Eosinophils (0.0 - 0.7 /CUMM) 0.3 Absolute Basophils (0.0 - 0.2 /CUMM) 0 Metamyelocytes (0.0 - 1.0 %) 1 Platelet Estimate (ADEQUATE) ADEQUATE Normocytic RBCs VERIFIED Normochromic RBCs VERIFIED Polychromasia
[2017-12-06 15:10] VITALS: BP 152/72
[2017-12-06 16:43] VITALS: BP 130/90
[2017-12-06 22:15] VITALS: BP 124/80
[2017-12-07 06:20] VITALS: BP 128/80
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
[2017-12-07 09:13] LABS: ABSOLUTE BASOPHIL COUNT 0 /CUMM (0.0-0.2); ABSOLUTE EOSINOPHIL COUNT 0.5 /CUMM (0.0-0.7); ABSOLUTE GRANULOCYTE CT 26.2 /CUMM (1.4-6.5); ABSOLUTE LYMPH COUNT 1.5 /CUMM (1.2-3.4); ABSOLUTE MONOCYTE COUNT 0.8 /CUMM (0.10-0.60); BASOPHIL % 0.1 % (0.0-2.0); EOSINOPHIL % 1.8 % (0-5); GRANULOCYTE % 90.2 % (42.2-75.2); HEMATOCRIT 38.4 % (42-52); MEAN CORPUSCULAR HGB 37.2 PG (27.0-31.0); MEAN CORPUSCULAR HGB CONC 33.9 G/DL (33.0-37.0); MEAN CORPUSCULAR VOLUME 109.7 FL (80.0-94.0); MEAN PLATELET VOLUME 7.6 FL (7.4-10.4); PLATELET COUNT 242 /CUMM (130-400); RBC DISTRIBUTION WIDTH 14.8 % (11.5-14.5); WHITE BLOOD CELL COUNT 29.1 /CUMM (4.8-10.8)
--- NOTE | 2017-12-07 11:54 | PN- Gastroenterology ---
Assessment/Plan GI Assessment/Recommendations: Assessment/Recommendations: 1. Atypical chest pain. Improved on current therapy. 2. Abdominal pain. Seemingly resolved. 3. Hiccuping. Resolved. Recommendations: * Continue IV PPI twice a day * Continue sucralfate suspension * If recurrence of hiccuping, consider metoclopramide 10 mg by mouth or IV 4 times a day, and discontinuing baclofen * EGD tomorrow; please make nothing by mouth after midnight. Subjective Subjective: Chest pain markedly diminished, now being called "discomfort." Denies abdominal pain, nausea, fever. Denies hiccuping. Objective Vital Signs and I&Os Vital Signs Date Time Temp Pulse Resp B/P B/P Pulse O2 O2 Flow FiO2 Mean Ox Delivery Rate 12/07 0932 64 128/80 12/07 0620 98.8 64 20 128/80 94 12/06 2215 98.0 76 20 124/80 95 12/06 1643 98.1 96 20 130/90 94 12/06 1510 98.1 76 18 152/72 94 Room Air Intake & Output 12/07 1600 12/07 0400 12/06 1600 12/06 0400 12/05 1600 12/05 0400 Intake Total 0 240 024 758 9764 350 Output Total 500 400 600 500 375 Balance 0 -260 200 -480 780 -25 Intake, IV 0 30 800 350 Intake, Oral 0 240 570 120 480 Number 0 Bowel Movements Output, Urine 500 400 600 500 375 Patient 175 lb 175 lb 174 lb Weight Weight Bed scale Bed scale Measurement Method Physical Exam: Sclera anicteric. Abdomen soft, nondistended, nontender. Current Medications: Current Medications Sig/Som Start time Last Medication Dose Route Stop Time Status Admin Acetaminophen 650 MG Q8P PRN 12/04 1530 AC PO Aspirin 81 MG DAILY 12/05 0900 AC 12/07 PO 0937 Baclofen 10 MG TID 12/05 0730 DC 12/06 PO 2020 Heparin Sodium 5,000 UNIT Q8 12/04 2200 AC 12/07 (Porcine) SC 0611 Morphine Sulfate 2 MG Q8P PRN 12/04 1700 AC 12/05 IV 1827 Ondansetron HCl 4 MG Q6P PRN 12/04 1530 AC 12/04 IV 1817 Pantoprazole Sodium 40 MG BID 12/05 2100 AC 12/07 IV 0937 Polyethylene Glycol 17 GM DAILY 12/06 1450 AC 12/07 PO 0937 Sucralfate 1 GM 4 TIMES/DAY 12/05 2100 AC 12/07 PO 0937 Tamsulosin HCl 0.4 MG DAILY 12/05 0900 AC 12/07 PO 0932 Tramadol HCl 50 MG Q8P PRN 12/04 1700 AC PO Results Pertinent Lab Results: Laboratory Tests 12/07 12/06 0830 0621 Chemistry Sodium (137 - 145 mmol/L) 134 L Potassium (3.5 - 5.1 mmol/L) 4.3 Chloride (98 - 107 mmol/L) 100 Carbon Dioxide (22 - 30 mmol/L) 25 Anion Gap (5 - 16) 9 BUN (9 - 20 mg/dL) 15 Creatinine (0.7 - 1.2 mg/dL) 1.1 Estimated GFR (>60 ml/min) > 60 BUN/Creatinine Ratio (7 - 25 %) 13.6 Hematology CBC w Diff MAN DIFF ORDERED MAN DIFF ORDERED WBC (4.8 - 10.8 /CUMM) 29.1 H 32.3 *H RBC (4.70 - 6.10 /CUMM) 3.50 L 3.52 L Hgb (14.0 - 18.0 G/DL) 13.0 L 13.1 L Hct (42 - 52 %) 38.4 L 38.5 L MCV (80.0 - 94.0 FL) 109.7 H 109.7 H MCH (27.0 - 31.0 PG) 37.2 H 37.1 H MCHC (33.0 - 37.0 G/DL) 33.9 33.8 RDW (11.5 - 14.5 %) 14.8 H 15.3 H Plt Count (130 - 400 /CUMM) 242 229 MPV (7.4 - 10.4 FL) 7.6 7.8 Gran % (42.2 - 75.2 %) 90.2 H 90.7 H Lymphocytes % (20.5 - 51.1 %) 5.2 L 4.7 L Monocytes % (1.7 - 9.3 %) 2.7 2.7 Eosinophils % (0 - 5 %) 1.8 1.8 Basophils % (0.0 - 2.0 %) 0.1 0.1 Absolute Granulocytes (1.4 - 6.5 /CUMM) 26.2 H 29.3 H Segmented Neutrophils (42.2 - 75.2 %) Pending 79 H Band Neutrophils (0.0 - 5.0 %) 8 H Absolute Lymphocytes (1.2 - 3.4 /CUMM) 1.5 1.5 Lymphocytes (20.5 - 51.1 %) 5 L Monocytes (1.7 - 9.3 %) 2 Absolute Monocytes (0.10 - 0.60 /CUMM) 0.8 H 0.9 H Eosinophils (0 - 5.0 %) 3 Absolute Eosinophils (0.0 - 0.7 /CUMM) 0.5 0.6 Basophils (0.0 - 2.0 %) 2 Absolute Basophils (0.0 - 0.2 /CUMM) 0 0 Metamyelocytes (0.0 - 1.0 %) 1 Platelet Estimate (ADEQUATE) VERIFIED BY SMEAR Polychromasia 1+ Anisocytosis 1+ 12/05 12/05 12/04 0600 0015 1830 Chemistry Sodium (137 - 145 mmol/L) 136 L Potassium (3.5 - 5.1 mmol/L) 4.5 Chloride (98 - 107 mmol/L) 100 Carbon Dioxide (22 - 30 mmol/L) 29 Anion Gap (5 - 16) 8 BUN (9 - 20 mg/dL) 11 Creatinine (0.7 - 1.2 mg/dL) 0.9 Estimated GFR (>60 ml/min) > 60 BUN/Creatinine Ratio (7 - 25 %) 12.2 Troponin I (<0.11 ng/ml) < 0.01 < 0.01 < 0.01 Hematology CBC w Diff MAN DIFF ORDERED WBC (4.8 - 10.8 /CUMM) 35.3 *H RBC (4.70 - 6.10 /CUMM) 3.63 L Hgb (14.0 - 18.0 G/DL) 13.5 L Hct (42 - 52 %) 39.9 L MCV (80.0 - 94.0 FL) 109.8 H MCH (27.0 - 31.0 PG) 37.1 H MCHC (33.0 - 37.0 G/DL) 33.8 RDW (11.5 - 14.5 %) 15.1 H Plt Count (130 - 400 /CUMM) 249 MPV (7.4 - 10.4 FL) 8.1 Gran % (42.2 - 75.2 %) 90.8 H Lymphocytes % (20.5 - 51.1 %) 5.4 L Monocytes % (1.7 - 9.3 %) 2.6 Eosinophils % (0 - 5 %) 0.9 Basophils % (0.0 - 2.0 %) 0.3 Absolute Granulocytes (1.4 - 6.5 /CUMM) 32.1 H Segmented Neutrophils (42.2 - 75.2 %) 87 H Band Neutrophils (0.0 - 5.0 %) 5 Absolute Lymphocytes (1.2 - 3.4 /CUMM) 1.9 Lymphocytes (20.5 - 51.1 %) 5 L Monocytes (1.7 - 9.3 %) 1 L Absolute Monocytes (0.10 - 0.60 /CUMM) 0.9 H Eosinophils (0 - 5.0 %) 1 Absolute Eosinophils (0.0 - 0.7 /CUMM) 0.3 Absolute Basophils (0.0 - 0.2 /CUMM) 0.1 Metamyelocytes (0.0 - 1.0 %) 1 Platelet Estimate (ADEQUATE) ADEQUATE Macrocytic Cells 1+ 12/04 12/04 12/04 1402 1402 1315 Chemistry Sodium (137 - 145 mmol/L) 134 L Potassium (3.5 - 5.1 mmol/L) 4.9 Chloride (98 - 107 mmol/L) 92 L Carbon Dioxide (22 - 30 mmol/L) 32 H Anion Gap (5 - 16) 9 BUN (9 - 20 mg/dL) 13 Creatinine (0.7 - 1.2 mg/dL) 1.0 Estimated GFR (>60 ml/min) > 60 BUN/Creatinine Ratio (7 - 25 %) 13.0 Glucose (65 - 99 mg/dL) 144 H Serum Osmolality (285 - 295 MOSM/KG) 281 L Lactic Acid (0.7 - 2.1 mmol/L) 1.9 Uric Acid (3.5 - 8.5 mg/dL) 8.4 Calcium (8.4 - 10.2 mg/dL) 9.0 Magnesium (1.6 - 2.3 mg/dL) 2.1 Total Bilirubin (0.2 - 1.3 mg/dL) 1.2 AST (17 - 59 U/L) 18 ALT (21 - 72 U/L) 30 Alkaline Phosphatase (< 127 U/L) 94 Troponin I (<0.11 ng/ml) < 0.01 Total Protein (6.3 - 8.2 g/dL) 8.0 Albumin (3.5 - 5.0 g/dL) 4.7 Globulin (1.9 - 4.2 gm/dL) 3.3 Albumin/Globulin Ratio (1.1 - 2.2 %) 1.4 Lipase (23 - 300 U/L) 17 L Free T4 (0.85 - 1.93 ng/dL) 1.27 Total T3 (0.97 - 1.69 ng/mL) 1.31 TSH &T3 &Free T4 Intrp (0.27 - 4.20 uIU/mL) 5.400 H Urines Urine Color Cancelled Urine Clarity Cancelled Urine pH Cancelled Ur Specific [place] Cancelled Urine Protein Cancelled Urine Ketones Cancelled Urine Nitrite Cancelled Urine Bilirubin Cancelled Urine Urobilinogen Cancelled Ur Leukocyte Esterase Cancelled Ur Microscopic Cancelled Urine Hemoglobin Cancelled Urine Osmolality Cancelled Ur Random Creatinine Cancelled Ur Random Sodium Cancelled Ur Random Potassium Cancelled Fraction Sodium Excret Cancelled Urine Glucose Cancelled 12/04 1220 Hematology CBC w Diff MAN DIFF ORDERED WBC (4.8 - 10.8 /CUMM) 50.6 *H RBC (4.70 - 6.10 /CUMM) 4.26 L Hgb (14.0 - 18.0 G/DL) 15.6 Hct (42 - 52 %) 46.3 MCV (80.0 - 94.0 FL) 108.7 H MCH (27.0 - 31.0 PG) 36.7 H MCHC (33.0 - 37.0 G/DL) 33.8 RDW (11.5 - 14.5 %) 15.1 H Plt Count (130 - 400 /CUMM) 275 MPV (7.4 - 10.4 FL) 8.0 Gran % (42.2 - 75.2 %) 94.9 H Lymphocytes % (20.5 - 51.1 %) 2.6 L Monocytes % (1.7 - 9.3 %) 1.9 Eosinophils % (0 - 5 %) 0.5 Basophils % (0.0 - 2.0 %) 0.1 Absolute Granulocytes (1.4 - 6.5 /CUMM) 48.0 H Segmented Neutrophils (42.2 - 75.2 %) 84 H Band Neutrophils (0.0 - 5.0 %) 6 H Absolute Lymphocytes (1.2 - 3.4 /CUMM) 1.3 Lymphocytes (20.5 - 51.1 %) 6 L Monocytes (1.7 - 9.3 %) 3 Absolute Monocytes (0.10 - 0.60 /CUMM) 1.0 H Absolute Eosinophils (0.0 - 0.7 /CUMM) 0.3 Absolute Basophils (0.0 - 0.2 /CUMM) 0 Metamyelocytes (0.0 - 1.0 %) 1 Platelet Estimate (ADEQUATE) ADEQUATE Normocytic RBCs VERIFIED Normochromic RBCs VERIFIED Polychromasia
--- NOTE | 2017-12-07 13:20 | PN- Att Addend ---
Attending Addendum Attending Brief Note Mr. Vee was interviewed and examined. His EMR was reviewed. He notes most complete resolution of his hiccups. He does complain of some upper abdominal pain. He has remained afebrile. The remainder of his vital signs are stable and satisfactory. He is in no acute distress. Pulmonary exam reveals equal and clear breath sounds. Heart exam is unremarkable. His abdomen has normal bowel sounds and is essentially nontender. His CBCs stable. Electrolytes reveal a mild hyponatremia. We are continuing treatment with parenteral PPI and Carafate slurries which appear to be improving his symptoms. Dr. Ferguson's input is appreciated. We are continuing his other maintenance medications.
[2017-12-07 15:21] VITALS: BP 120/75
[2017-12-07 22:18] VITALS: BP 138/60
[2017-12-08 06:25] VITALS: BP 124/70
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
--- NOTE | 2017-12-08 07:18 | PN- Hematology ---
Subjective Subjective: Offers no specific complaints, hiccups improved 12 point review of systems otherwise noncontributory Objective Vital Signs and I&Os Vital Signs Date Time Temp Pulse Resp B/P B/P Pulse O2 O2 Flow FiO2 Mean Ox Delivery Rate 12/08 0625 98.2 79 20 124/70 95 Room Air 12/07 2218 98.5 80 20 138/60 93 Room Air 12/07 1521 97.9 75 18 120/75 93 Room Air 12/07 0932 64 128/80 Intake & Output 12/08 0000 12/07 1600 12/07 0000 12/06 1600 Intake Total 120 800 0 240 480 Output Total 250 500 Balance -250 120 800 0 -260 480 Intake, IV 0 30 Intake, Oral 120 800 0 240 450 Number 0 0 Bowel Movements Output, Urine 250 500 Patient 175 lb Weight Gen.: in NAD ENT: Sclera anicteric Chest: Normal respiratory effort, clear breath sounds Cor: RRR, no extra sounds Abdomen: Soft, bowel sounds present, no tenderness, no rebound Extremities: Without clubbing, cyanosis, or asymmetric edema Neurology: Alert and oriented 3, Current Medications: Current Medications Sig/Som Start time Last Medication Dose Route Stop Time Status Admin Acetaminophen 650 MG Q8P PRN 12/04 1530 AC 12/07 PO 1620 Aspirin 81 MG DAILY 12/05 09 AC 12/07 PO 0937 Docusate Sodium 100 MG DAILY NEEDED PRN 12/07 204 AC 12/07 PO 2144 Heparin Sodium 5,000 UNIT Q8 12/04 2200 AC 12/08 (Porcine) SC 0540 Morphine Sulfate 2 MG Q8P PRN 12/04 1700 AC 12/05 IV 1827 Ondansetron HCl 4 MG Q6P PRN 12/04 1530 AC 12/04 IV 1817 Pantoprazole Sodium 40 MG BID 12/05 2100 AC 12/07 IV 2145 Polyethylene Glycol 17 GM DAILY 12/06 1450 AC 12/07 PO 0937 Senna 187 MG AT BEDTIME 12/07 2100 AC 12/07 PO 2144 Sucralfate 1 GM 4 TIMES/DAY 12/05 2100 AC 12/07 PO 2144 Tamsulosin HCl 0.4 MG DAILY 12/05 0900 AC 12/07 PO 0932 Tramadol HCl 50 MG Q8P PRN 12/04 1700 AC PO Results Last 24 Hours of Lab Results: Laboratory Tests 12/08 12/07 0630 0830 Hematology CBC w Diff Pending MAN DIFF ORDERED WBC (4.8 - 10.8 /CUMM) Pending 29.1 H RBC (4.70 - 6.10 /CUMM) Pending 3.50 L Hgb (14.0 - 18.0 G/DL) Pending 13.0 L Hct (42 - 52 %) Pending 38.4 L MCV (80.0 - 94.0 FL) Pending 109.7 H MCH (27.0 - 31.0 PG) Pending 37.2 H MCHC (33.0 - 37.0 G/DL) Pending 33.9 RDW (11.5 - 14.5 %) Pending 14.8 H Plt Count (130 - 400 /CUMM) Pending 242 MPV (7.4 - 10.4 FL) Pending 7.6 Gran % (42.2 - 75.2 %) 90.2 H Lymphocytes % (20.5 - 51.1 %) 5.2 L Monocytes % (1.7 - 9.3 %) 2.7 Eosinophils % (0 - 5 %) 1.8 Basophils % (0.0 - 2.0 %) 0.1 Absolute Granulocytes (1.4 - 6.5 /CUMM) 26.2 H Segmented Neutrophils (42.2 - 75.2 %) 74 Band Neutrophils (0.0 - 5.0 %) 12 H Absolute Lymphocytes (1.2 - 3.4 /CUMM) 1.5 Lymphocytes (20.5 - 51.1 %) 5 L Monocytes (1.7 - 9.3 %) 4 Absolute Monocytes (0.10 - 0.60 /CUMM) 0.8 H Eosinophils (0 - 5.0 %) 4 Absolute Eosinophils (0.0 - 0.7 /CUMM) 0.5 Absolute Basophils (0.0 - 0.2 /CUMM) 0 Metamyelocytes (0.0 - 1.0 %) 1 Platelet Estimate (ADEQUATE) VERIFIED BY SMEAR Polychromasia 1+ Anisocytosis 1+ Assessment/Plan Hematology Assessment/Recommendations: 1. Myeloproliferative disorder-patient has not yet been placed back on Hydrea. At this point given the spontaneous improvement, would hold off and continue to observe CBC 2. Hiccups-as per GI
[2017-12-08 08:53] LABS: ABSOLUTE BASOPHIL COUNT 0.2 /CUMM (0.0-0.2); ABSOLUTE EOSINOPHIL COUNT 0.6 /CUMM (0.0-0.7); ABSOLUTE GRANULOCYTE CT 22.8 /CUMM (1.4-6.5); ABSOLUTE LYMPH COUNT 1.7 /CUMM (1.2-3.4); ABSOLUTE MONOCYTE COUNT 0.1 /CUMM (0.10-0.60); BASOPHIL % 0.8 % (0.0-2.0); EOSINOPHIL % 2.4 % (0-5); GRANULOCYTE % 89.5 % (42.2-75.2); MEAN CORPUSCULAR HGB CONC 33.8 G/DL (33.0-37.0); MEAN CORPUSCULAR VOLUME 109.4 FL (80.0-94.0); MEAN PLATELET VOLUME 8.1 FL (7.4-10.4); PLATELET COUNT 225 /CUMM (130-400); RBC DISTRIBUTION WIDTH 14.8 % (11.5-14.5); RED BLOOD CELL CT 3.38 /CUMM (4.70-6.10); WHITE BLOOD CELL COUNT 25.5 /CUMM (4.8-10.8)
--- NOTE | 2017-12-08 13:30 | PN- Att Addend ---
Attending Addendum Attending Brief Note Appreciat GI imput and recommedations , less pain Vital signs stable No fever. Upper endoscopy today treat accordingly. Intake & Output 12/08 1600 12/08 0400 12/07 1600 12/07 0400 12/06 0400 Intake Total 120 120 800 240 600 120 Output Total 250 500 400 600 Balance -130 120 800 -260 200 -480 Intake, IV 0 30 Intake, Oral 120 120 800 240 570 120 Number 0 0 Bowel Movements Output, Urine 250 500 400 600 Patient 175 lb 175 lb Weight Weight Bed scale Measurement Method Current Medications Sig/Som Start time Last Medication Dose Route Stop Time Status Admin Acetaminophen 650 MG Q8P PRN 12/04 1530 AC 12/08 PO 0925 Aspirin 81 MG DAILY 12/05 09 AC 12/08 PO 0916 Docusate Sodium 100 MG DAILY NEEDED PRN 12/07 204 AC 12/07 PO 2144 Heparin Sodium 5,000 UNIT Q8 12/04 2200 AC 12/08 (Porcine) SC 0540 Morphine Sulfate 2 MG Q8P PRN 12/04 1700 AC 12/05 IV 1827 Ondansetron HCl 4 MG Q6P PRN 12/04 1530 AC 12/04 IV 1817 Pantoprazole Sodium 40 MG BID 12/05 2100 AC 12/08 IV 0916 Patient Medication 1 ED ONE ONE 12/08 1030 HI Teaching ED 12/08 1031 Polyethylene Glycol 17 GM DAILY 12/06 1450 AC 12/07 PO 0937 Senna 187 MG AT BEDTIME 12/07 2100 AC 12/07 PO 2144 Sucralfate 1 GM 4 TIMES/DAY 12/05 2100 AC 12/08 PO 0916 Tamsulosin HCl 0.4 MG DAILY 12/05 0900 AC 12/08 PO 0916 Tramadol HCl 50 MG Q8P PRN 12/04 1700 AC PO Laboratory Tests 12/08/17 0630: CBC w Diff MAN DIFF ORDERED, RBC 3.38 L, MCV 109.4 H, MCH 37.0 H, MCHC 33.8, RDW 14.8 H, MPV 8.1, Gran % 89.5 H, Lymphocytes % 6.8 L, Monocytes % 0.5 L, Eosinophils % 2.4, Basophils % 0.8, Absolute Granulocytes 22.8 H, Segmented Neutrophils 82 H, Band Neutrophils 6 H, Absolute Lymphocytes 1.7, Lymphocytes 7 L, Absolute Monocytes 0.1, Eosinophils 4, Absolute Eosinophils 0.6, Absolute Basophils 0.2, Myelocytes 1 H, Nucleated RBCs 2 H, Platelet Estimate VERIFIED BY SMEAR, Polychromasia 1+, Macrocytic Cells 1+ 12/07/17 0830: CBC w Diff MAN DIFF ORDERED, RBC 3.50 L, MCV 109.7 H, MCH 37.2 H, MCHC 33.9, RDW 14.8 H, MPV 7.6, Gran % 90.2 H, Lymphocytes % 5.2 L, Monocytes % 2.7, Eosinophils % 1.8, Basophils % 0.1, Absolute Granulocytes 26.2 H, Segmented Neutrophils 74, Band Neutrophils 12 H, Absolute Lymphocytes 1.5, Lymphocytes 5 L, Monocytes 4, Absolute Monocytes 0.8 H, Eosinophils 4, Absolute Eosinophils 0.5, Absolute Basophils 0, Metamyelocytes 1, Platelet Estimate VERIFIED BY SMEAR , Polychromasia 1+, Anisocytosis 1+ 12/06/17 0621: Anion Gap 9, Estimated GFR > 60, BUN/Creatinine Ratio 13.6, CBC w Diff MAN DIFF ORDERED, RBC 3.52 L, MCV 109.7 H, MCH 37.1 H, MCHC 33.8, RDW 15.3 H, MPV 7.8 , Gran % 90.7 H, Lymphocytes % 4.7 L, Monocytes % 2.7, Eosinophils % 1.8, Basophils % 0.1, Absolute Granulocytes 29.3 H, Segmented Neutrophils 79 H, Band Neutrophils 8 H, Absolute Lymphocytes 1.5, Lymphocytes 5 L, Monocytes 2, Absolute Monocytes 0.9 H, Eosinophils 3, Absolute Eosinophils 0.6, Basophils 2, Absolute Basophils 0, Metamyelocytes 1, Platelet Estimate VERIFIED BY SMEAR, Polychromasia 1+, Anisocytosis 1+ Vital Signs Date Time Temp Pulse Resp B/P B/P Pulse O2 O2 Flow FiO2 Mean Ox Delivery Rate 12/08 0916 79 124/70 12/08 0625 98.2 79 20 124/70 95 Room Air 12/07 2218 98.5 80 20 138/60 93 Room Air 12/07 1521 97.9 75 18 120/75 93 Room Air
--- NOTE | 2017-12-08 13:49 | Proc Note Endoscopy ---
Endoscopy Procedure Procedure Date: 12/08/17 Procedure Type: EGD w/biopsy Surgical Pathologist: Alo Ferguson M.D. ASA Classification: III Indications: Atypical chest pain Odynophagia Abnormal distal esophagus on CT scan Abdominal pain Instrument: diagnostic gastroscope Meds Received: PRUDENCIO Patient's Tolerance: good Complications: none Extent Reached: third part of duodenum Procedure: The patient's daughter Paulette gave telephone verbal informed consent, and the patient was then medicated. Lidocaine pharyngeal spray was administered. Pulse oximetry, blood pressure and cardiac monitoring were performed continuously throughout the procedure. The Olympus high-definition gastroscope was inserted into the mouth and advanced to the duodenum. Retroflexion was performed within the stomach to examine the cardia. Careful examination was performed. Findings: The esophagus had normal caliber and contour. The mucosa in the proximal esophagus was erythematous. Beginning above 30 cm there was denuding of the mucosa with overlying thick white exudate, and erythematous mucosa in between. Multiple biopsies were obtained. There were several tiny clots. No mass lesions were identified. The GE junction at 38 cm was normal. Distal to this was a small hiatal hernia. Stomach had normal distention and active peristalsis. The cardia was normal. The mucosa and folds were normal throughout except for an enlarged prepyloric fold. The pyloric channel was normal. Biopsies were obtained from body, incisura and antrum. The duodenal bulb was normal. Mucosa and folds of the duodenal sweep were normal. Impression: * Severe esophagitis * Hiatal hernia Recommendations: * Await pathology * Continue PPI twice a day (oral) * Continue sucralfate prior to meals * Regular diet as tolerated * Assess for delirium CC: Mack ROUSE,Richie
--- NOTE | 2017-12-08 14:17 | ECHOCARDIOGRAM REPORT ---
MEHNAZ NAIK Age: 86 : 1930 Gender: M Exam Date: 12/06/2017 12:02 Exam Location: [address] Ht (in): 69 Wt (lb): 185 BSA: 2.04 BP: 128 / 80 Ordering Physician: Gerson Irizarry MD Referring Physician: Gerson Irizarry MD Technologist: Mitzy Mancuso [facility] Room Number: 227-01 Indications: Chest pain, unspecified Rhythm: Technical Quality: Very technically difficult study FINDINGS Left Ventricle Left ventricle not well visualized, grossly normal. Left ventricular ejection fraction is estimated at > 55 %. Right Ventricle Right ventricle not well visualized. Right Atrium Right atrium not well visualized. Left Atrium Left atrium not well visualized, grossly normal. Mitral Valve Mitral valve not well visualized. Mild mitral annular calcification. Aortic Valve Aortic valve not well visualized. Tricuspid Valve Tricuspid valve not well visualized. Pulmonic Valve Pulmonic valve not well visualized. Pericardium Pericardium not well visualized. Great Vessels Normal size aortic root. CONCLUSIONS Very technically difficult study. Left ventricle not well visualized, grossly normal. Left ventricular ejection fraction is estimated at > 55 %. Right ventricle not well visualized. Pericardium not well visualized. Normal size aortic root. Left atrium not well visualized, grossly normal. Benjamin Matos M.D. (Electronically Signed) Final Date: 08 December 2017 14:13 MEASUREMENTS (Male / Female) Normal Values
[2017-12-08 14:49] VITALS: BP 120/78
[2017-12-08 20:27] VITALS: BP 134/68
--- NOTE | 2017-12-09 04:04 | RADIOLOGY REPORT ---
EXAMINATION: XR ABDOMEN MULTIPLE VIEWS CLINICAL INDICATION: Not passing gas, no bowel movement for 7 days, question small bowel obstruction COMPARISON: 02/03/2017 TECHNIQUE: 2 views of the abdomen. FINDINGS: No evidence of intra-abdominal free air. Small and large bowel gas is seen throughout the abdomen, without specific evidence for obstruction. Suboptimal assessment on the supine view due to motion artifact. Calcifications in the pelvis are statistically favored to reflect phleboliths. The visualized lung bases are clear. No acute osseous findings are seen. IMPRESSION: Nonobstructive bowel gas pattern.
--- NOTE | 2017-12-09 05:38 | Event Note ---
Event Note Event Note: 86 year old male with admitted with atypical chest pain s/p EGD today with Dr. Ferguson complaining of abdominal pain and headache. Patient is unreliable for history as he repeatidly asks the same question. Per RN, no BM in 7 days and not passing gas. Patient is belching which is appropriate s/p EGD. Exam: VSS: abdomen soft; patient reports diffusely tender but no rebound or guarding noted. BS hyperactive. Plan XR Abdomen showed no acute findings; SBO less likely Digital disimpaction-multiple small formed brown stools removed from rectal vault Current bowel regimen was Senna; added Colace Will sign out to day team to be aware of BM and possible need for suppository vs other agents to assist with BM.
[2017-12-09 06:00] VITALS: BP 136/70
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
[2017-12-09 09:21] LABS: ABSOLUTE BASOPHIL COUNT 0.1 /CUMM (0.0-0.2); ABSOLUTE EOSINOPHIL COUNT 0.7 /CUMM (0.0-0.7); ABSOLUTE GRANULOCYTE CT 22.4 /CUMM (1.4-6.5); ABSOLUTE MONOCYTE COUNT 0.1 /CUMM (0.10-0.60); BASOPHIL % 0.3 % (0.0-2.0); EOSINOPHIL % 2.9 % (0-5); GRANULOCYTE % 88.4 % (42.2-75.2); HEMATOCRIT 35.1 % (42-52); MEAN CORPUSCULAR HGB 36.6 PG (27.0-31.0); MEAN CORPUSCULAR HGB CONC 33.3 G/DL (33.0-37.0); MEAN PLATELET VOLUME 7.9 FL (7.4-10.4); PLATELET COUNT 239 /CUMM (130-400); RBC DISTRIBUTION WIDTH 14.6 % (11.5-14.5); RED BLOOD CELL CT 3.19 /CUMM (4.70-6.10); WHITE BLOOD CELL COUNT 25.3 /CUMM (4.8-10.8)
--- NOTE | 2017-12-09 10:13 | PN- Att Addend ---
Attending Addendum Attending Brief Note Patient still complaining of some pain. But in no distress. Had his endoscopy upper yesterday findings were noted has esophagitis. Multiple biopsies were obtained. Patient on PPOs. We will check with GI see what else we need to do. Get the patient out of bed. Depending on GI recommendations and we can start disposition plans. Intake & Output 12/09 1600 12/09 0400 12/08 1600 12/08 0400 12/07 1600 12/07 0400 Intake Total 240 180 120 120 800 240 Output Total 450 300 250 500 Balance -210 -120 -130 120 800 -260 Intake, IV 0 Intake, Oral 240 180 120 120 800 240 Number 0 0 0 Bowel Movements Output, Urine 450 300 250 500 Current Medications Sig/Som Start time Last Medication Dose Route Stop Time Status Admin Acetaminophen 650 MG Q8P PRN 12/04 1530 AC 12/09 PO 0146 Aspirin 81 MG DAILY 12/05 09 12/09 PO 0747 Docusate Sodium 100 MG DAILY NEEDED PRN 12/08 2115 12/08 PO 2107 Docusate Sodium 0 .STK-MED ONE 12/08 2107 DC PO Docusate Sodium 100 MG DAILY NEEDED PRN 12/07 2045 ID 12/07 PO 2144 Heparin Sodium 5,000 UNIT Q8 12/04 2200 12/09 (Porcine) SC 0638 Ibuprofen 600 MG ONCE ONE 12/09 0330 DC 12/09 PO 12/09 0331 0420 Lidocaine 1 DAY .STK-MED ONE 12/08 1358 [facility] 12/08 1359 Lidocaine 50 ML .STK-MED ONE 12/08 1358 [facility] 12/08 1359 Morphine Sulfate 2 MG Q8P PRN 12/04 1700 12/09 IV 0638 Ondansetron HCl 4 MG Q6P PRN 12/04 1530 12/04 IV 1817 Pantoprazole Sodium 40 MG BID 12/05 2100 12/09 IV 0747 Patient Medication 1 ED ONE ONE 12/08 1030 DC Teaching ED 12/08 1031 Polyethylene Glycol 17 GM DAILY 12/06 1450 12/09 PO 0748 Senna 187 MG AT BEDTIME 12/07 2100 12/08 PO 2016 Sucralfate 1 GM 4 TIMES/DAY 12/05 2100 12/09 PO 0748 Tamsulosin HCl 0.4 MG DAILY 12/05 0900 AC 12/09 PO 0748 Tramadol HCl 50 MG Q8P PRN 12/04 1700 AC 12/09 PO 0318 Laboratory Tests 12/09/17 0639: CBC w Diff MAN DIFF ORDERED, WBC Pending, RBC Pending, Hgb Pending, Hct Pending, MCV Pending, MCH Pending, MCHC Pending, RDW Pending, Plt Count Pending, MPV Pending, Gran % Pending, Lymphocytes % Pending, Monocytes % Pending, Eosinophils % Pending, Basophils % Pending, Absolute Granulocytes Pending, Segmented Neutrophils Pending, Absolute Lymphocytes Pending, Absolute Monocytes Pending, Absolute Eosinophils Pending, Absolute Basophils Pending 12/08/17 0630: CBC w Diff MAN DIFF ORDERED, RBC 3.38 L, MCV 109.4 H, MCH 37.0 H, MCHC 33.8, RDW 14.8 H, MPV 8.1, Gran % 89.5 H, Lymphocytes % 6.8 L, Monocytes % 0.5 L, Eosinophils % 2.4, Basophils % 0.8, Absolute Granulocytes 22.8 H, Segmented Neutrophils 82 H, Band Neutrophils 6 H, Absolute Lymphocytes 1.7, Lymphocytes 7 L, Absolute Monocytes 0.1, Eosinophils 4, Absolute Eosinophils 0.6, Absolute Basophils 0.2, Myelocytes 1 H, Nucleated RBCs 2 H, Platelet Estimate VERIFIED BY SMEAR, Polychromasia 1+, Macrocytic Cells 1+ 12/07/17 0830: CBC w Diff MAN DIFF ORDERED, RBC 3.50 L, MCV 109.7 H, MCH 37.2 H, MCHC 33.9, RDW 14.8 H, MPV 7.6, Gran % 90.2 H, Lymphocytes % 5.2 L, Monocytes % 2.7, Eosinophils % 1.8, Basophils % 0.1, Absolute Granulocytes 26.2 H, Segmented Neutrophils 74, Band Neutrophils 12 H, Absolute Lymphocytes 1.5, Lymphocytes 5 L, Monocytes 4, Absolute Monocytes 0.8 H, Eosinophils 4, Absolute Eosinophils 0.5, Absolute Basophils 0, Metamyelocytes 1, Platelet Estimate VERIFIED BY SMEAR , Polychromasia 1+, Anisocytosis 1+ Vital Signs Date Time Temp Pulse Resp B/P B/P Pulse O2 O2 Flow FiO2 Mean Ox Delivery Rate 12/09 0648 97.7 80 18 136/70 12/09 0600 97.7 80 18 136/70 95 Room Air 12/08 2027 97.3 73 18 134/68 95 Room Air 12/08 1449 98.0 70 18 120/78 97
[2017-12-09 14:32] VITALS: BP 130/70
--- NOTE | 2017-12-09 17:44 | PN- Gastroenterology ---
Assessment/Plan GI Assessment/Recommendations: Atypical chest pain, secondary to severe esophagitis. Hiccups and eructation, resolved. Recommendations: * Await pathology (still pending) * Continue PPI twice a day (oral) * Continue sucralfate prior to meals * Regular diet as tolerated * Assess for delirium/dementia. Subjective Subjective: The patient is confused. Overall improvement in chest pain, and abdominal pain. Objective Vital Signs and I&Os Vital Signs Date Time Temp Pulse Resp B/P B/P Pulse O2 O2 Flow FiO2 Mean Ox Delivery Rate 12/09 1432 97.9 77 18 130/70 95 Room Air 12/09 0748 97.7 80 18 136/70 12/09 0600 97.7 80 18 136/70 95 Room Air 12/08 2026 97.3 73 18 134/68 95 Room Air Intake & Output 12/09 1600 12/09 0400 12/08 1600 12/08 0400 12/07 1600 12/07 0400 Intake Total 240 180 120 120 800 240 Output Total 450 300 250 500 Balance -210 -120 -130 120 800 -260 Intake, IV 0 Intake, Oral 240 180 120 120 800 240 Number 0 0 0 Bowel Movements Output, Urine 450 300 250 500 Physical Exam: Sclera anicteric. Abdomen soft, nontender, nondistended. Current Medications: Current Medications Sig/Som Start time Last Medication Dose Route Stop Time Status Admin Acetaminophen 650 MG Q8P PRN 12/04 1530 AC 12/09 PO 1220 Aspirin 81 MG DAILY 12/05 0900 AC 12/09 PO 0747 Docusate Sodium 100 MG DAILY NEEDED PRN 12/08 2115 AC 12/08 PO 2107 Docusate Sodium 0 .STK-MED ONE 12/08 2106 DC PO Docusate Sodium 100 MG DAILY NEEDED PRN 12/07 2045 DC 12/07 PO 2144 Heparin Sodium 5,000 UNIT Q8 12/04 2200 AC 12/09 (Porcine) SC 1402 Ibuprofen 600 MG ONCE ONE 12/09 0330 DC 12/09 PO 12/09 0331 0420 Morphine Sulfate 2 MG Q8P PRN 12/04 1700 AC 12/09 IV 0638 Ondansetron HCl 4 MG Q6P PRN 12/04 1530 AC 12/04 IV 1817 Pantoprazole Sodium 40 MG BID 12/05 2100 AC 08/28 IV 0747 Polyethylene Glycol 17 GM DAILY 12/06 1450 AC 12/09 PO 0748 Senna 187 MG AT BEDTIME 12/07 2100 AC 12/08 PO 2015 Sucralfate 1 GM 4 TIMES/DAY 12/05 2100 AC 12/09 PO 1220 Tamsulosin HCl 0.4 MG DAILY 12/05 0900 AC 12/09 PO 0748 Tramadol HCl 50 MG Q8P PRN 12/04 1700 AC 12/09 PO 0318 Results Pertinent Lab Results: Laboratory Tests 12/09 0639 Hematology CBC w Diff MAN DIFF ORDERED WBC (4.8 - 10.8 /CUMM) 25.3 H RBC (4.70 - 6.10 /CUMM) 3.19 L Hgb (14.0 - 18.0 G/DL) 11.7 L Hct (42 - 52 %) 35.1 L MCV (80.0 - 94.0 FL) 110.0 H MCH (27.0 - 31.0 PG) 36.6 H MCHC (33.0 - 37.0 G/DL) 33.3 RDW (11.5 - 14.5 %) 14.6 H Plt Count (130 - 400 /CUMM) 239 MPV (7.4 - 10.4 FL) 7.9 Gran % (42.2 - 75.2 %) 88.4 H Lymphocytes % (20.5 - 51.1 %) 8.0 L Monocytes % (1.7 - 9.3 %) 0.4 L Eosinophils % (0 - 5 %) 2.9 Basophils % (0.0 - 2.0 %) 0.3 Absolute Granulocytes (1.4 - 6.5 /CUMM) 22.4 H Segmented Neutrophils (42.2 - 75.2 %) 76 H Band Neutrophils (0.0 - 5.0 %) 5 Absolute Lymphocytes (1.2 - 3.4 /CUMM) 2.0 Lymphocytes (20.5 - 51.1 %) 14 L Monocytes (1.7 - 9.3 %) 2 Absolute Monocytes (0.10 - 0.60 /CUMM) 0.1 Eosinophils (0 - 5.0 %) 1 Absolute Eosinophils (0.0 - 0.7 /CUMM) 0.7 Basophils (0.0 - 2.0 %) 2 Absolute Basophils (0.0 - 0.2 /CUMM) 0.1 Platelet Estimate (ADEQUATE) VERIFIED BY SMEAR Normocytic RBCs VERIFIED Normochromic RBCs VERIFIED 12/08 629 Hematology CBC w Diff MAN DIFF ORDERED WBC (4.8 - 10.8 /CUMM) 25.5 H RBC (4.70 - 6.10 /CUMM) 3.38 L Hgb (14.0 - 18.0 G/DL) 12.5 L Hct (42 - 52 %) 37.0 L MCV (80.0 - 94.0 FL) 109.4 H MCH (27.0 - 31.0 PG) 37.0 H MCHC (33.0 - 37.0 G/DL) 33.8 RDW (11.5 - 14.5 %) 14.8 H Plt Count (130 - 400 /CUMM) 225 MPV (7.4 - 10.4 FL) 8.1 Gran % (42.2 - 75.2 %) 89.5 H Lymphocytes % (20.5 - 51.1 %) 6.8 L Monocytes % (1.7 - 9.3 %) 0.5 L Eosinophils % (0 - 5 %) 2.4 Basophils % (0.0 - 2.0 %) 0.8 Absolute Granulocytes (1.4 - 6.5 /CUMM) 22.8 H Segmented Neutrophils (42.2 - 75.2 %) 82 H Band Neutrophils (0.0 - 5.0 %) 6 H Absolute Lymphocytes (1.2 - 3.4 /CUMM) 1.7 Lymphocytes (20.5 - 51.1 %) 7 L Absolute Monocytes (0.10 - 0.60 /CUMM) 0.1 Eosinophils (0 - 5.0 %) 4 Absolute Eosinophils (0.0 - 0.7 /CUMM) 0.6 Absolute Basophils (0.0 - 0.2 /CUMM) 0.2 Myelocytes (0 - 0 %) 1 H Nucleated RBCs (0.0 - 0.0 /100WBC) 2 H Platelet Estimate (ADEQUATE) VERIFIED BY SMEAR Polychromasia 1+ Macrocytic Cells 1+ 12/07 0830 Hematology CBC w Diff MAN DIFF ORDERED WBC (4.8 - 10.8 /CUMM) 29.1 H RBC (4.70 - 6.10 /CUMM) 3.50 L Hgb (14.0 - 18.0 G/DL) 13.0 L Hct (42 - 52 %) 38.4 L MCV (80.0 - 94.0 FL) 109.7 H MCH (27.0 - 31.0 PG) 37.2 H MCHC (33.0 - 37.0 G/DL) 33.9 RDW (11.5 - 14.5 %) 14.8 H Plt Count (130 - 400 /CUMM) 242 MPV (7.4 - 10.4 FL) 7.6 Gran % (42.2 - 75.2 %) 90.2 H Lymphocytes % (20.5 - 51.1 %) 5.2 L Monocytes % (1.7 - 9.3 %) 2.7 Eosinophils % (0 - 5 %) 1.8 Basophils % (0.0 - 2.0 %) 0.1 Absolute Granulocytes (1.4 - 6.5 /CUMM) 26.2 H Segmented Neutrophils (42.2 - 75.2 %) 74 Band Neutrophils (0.0 - 5.0 %) 12 H Absolute Lymphocytes (1.2 - 3.4 /CUMM) 1.5 Lymphocytes (20.5 - 51.1 %) 5 L Monocytes (1.7 - 9.3 %) 4 Absolute Monocytes (0.10 - 0.60 /CUMM) 0.8 H Eosinophils (0 - 5.0 %) 4 Absolute Eosinophils (0.0 - 0.7 /CUMM) 0.5 Absolute Basophils (0.0 - 0.2 /CUMM) 0 Metamyelocytes (0.0 - 1.0 %) 1 Platelet Estimate (ADEQUATE) VERIFIED BY SMEAR Polychromasia 1+ Anisocytosis 1+
[2017-12-09 22:20] VITALS: BP 120/60
[2017-12-10 05:42] VITALS: BP 122/76
[2017-12-10 08:19] LABS: ABSOLUTE BASOPHIL COUNT 0.2 /CUMM (0.0-0.2); ABSOLUTE EOSINOPHIL COUNT 0.8 /CUMM (0.0-0.7); ABSOLUTE GRANULOCYTE CT 26.8 /CUMM (1.4-6.5); ABSOLUTE LYMPH COUNT 2.2 /CUMM (1.2-3.4); ABSOLUTE MONOCYTE COUNT 0.3 /CUMM (0.10-0.60); BASOPHIL % 0.7 % (0.0-2.0); EOSINOPHIL % 2.6 % (0-5); GRANULOCYTE % 88.5 % (42.2-75.2); HEMATOCRIT 32.5 % (42-52); MEAN CORPUSCULAR HGB 37.3 PG (27.0-31.0); MEAN CORPUSCULAR HGB CONC 34.2 G/DL (33.0-37.0); MEAN PLATELET VOLUME 8.1 FL (7.4-10.4); PLATELET COUNT 286 /CUMM (130-400); RBC DISTRIBUTION WIDTH 15.1 % (11.5-14.5); RED BLOOD CELL CT 2.99 /CUMM (4.70-6.10)
[2017-12-10 08:45] LABS: WHITE BLOOD CELL COUNT 30.3 /CUMM (4.8-10.8)
--- NOTE | 2017-12-10 13:44 | PN- Gastroenterology ---
Assessment/Plan GI Assessment/Recommendations: Atypical chest pain, secondary to severe esophagitis. Hiccups and eructation, resolved. Confusion/disorientation. Recommendations: * Await pathology (still pending) * Continue PPI twice a day (oral) * Continue sucralfate prior to meals * Regular diet as tolerated * Assess for delirium/dementia. Subjective Subjective: Cannot answer questions directly or give cogent history. Confused, disoriented. Apparently eating poorly. Objective Vital Signs and I&Os Vital Signs Date Time Temp Pulse Resp B/P B/P Pulse O2 O2 Flow FiO2 Mean Ox Delivery Rate 12/10 916 97.7 90 20 122/76 12/10 0542 97.7 90 20 122/76 95 Room Air 12/09 2220 98.1 87 19 120/60 95 Room Air 12/09 1432 97.9 77 18 130/70 95 Room Air Intake & Output 12/10 1600 12/10 0400 12/09 1600 12/09 0400 12/08 1600 12/08 0400 Intake Total 100 600 180 120 120 Output Total 300 920 850 300 250 Balance -200 -920 -250 -120 -130 120 Intake, IV 0 Intake, Oral 100 600 180 120 120 Number 0 0 0 Bowel Movements Output, Urine 300 920 850 300 250 Physical Exam: Abdomen benign. Current Medications: Current Medications Sig/Som Start time Last Medication Dose Route Stop Time Status Admin Acetaminophen 0 .STK-MED ONE 12/10 921 NC PO Acetaminophen 650 MG Q8P PRN 12/04 1530 12/10 PO 0921 Aspirin 81 MG DAILY 12/05 0900 12/10 PO 0916 Docusate Sodium 100 MG DAILY NEEDED PRN 12/08 2115 12/08 PO 2107 Heparin Sodium 5,000 UNIT Q8 12/04 2200 12/10 (Porcine) SC 0457 Hydroxyurea 500 MG DAILY 12/10 1004 AC 12/10 PO 1229 Morphine Sulfate 2 MG Q8P PRN 12/04 1700 12/09 IV 0638 Ondansetron HCl 4 MG Q6P PRN 12/04 1530 12/04 IV 1817 Pantoprazole Sodium 40 MG BID 12/05 2100 12/10 IV 0917 Patient Medication 1 ED ONE ONE 12/09 1900 NC 12/09 Teaching ED 12/09 190 2108 Polyethylene Glycol 17 GM DAILY 12/06 1450 AC 12/09 PO 0748 Senna 187 MG AT BEDTIME 12/07 2100 AC 12/09 PO 2107 Sucralfate 1 GM 4 TIMES/DAY 12/05 2100 AC 12/10 PO 1229 Tamsulosin HCl 0.4 MG DAILY 12/05 0900 AC 12/10 PO 0917 Tramadol HCl 50 MG Q8P PRN 12/04 1700 AC 12/10 PO 0456 Results Pertinent Lab Results: Laboratory Tests 12/11 639 Hematology CBC w Diff MAN DIFF ORDERED WBC (4.8 - 10.8 /CUMM) 30.3 *H RBC (4.70 - 6.10 /CUMM) 2.99 L Hgb (14.0 - 18.0 G/DL) 11.1 L Hct (42 - 52 %) 32.5 L MCV (80.0 - 94.0 FL) 109.0 H MCH (27.0 - 31.0 PG) 37.3 H MCHC (33.0 - 37.0 G/DL) 34.2 RDW (11.5 - 14.5 %) 15.1 H Plt Count (130 - 400 /CUMM) 286 MPV (7.4 - 10.4 FL) 8.1 Gran % (42.2 - 75.2 %) 88.5 H Lymphocytes % (20.5 - 51.1 %) 7.1 L Monocytes % (1.7 - 9.3 %) 1.1 L Eosinophils % (0 - 5 %) 2.6 Basophils % (0.0 - 2.0 %) 0.7 Absolute Granulocytes (1.4 - 6.5 /CUMM) 26.8 H Segmented Neutrophils (42.2 - 75.2 %) 82 H Band Neutrophils (0.0 - 5.0 %) 4 Absolute Lymphocytes (1.2 - 3.4 /CUMM) 2.2 Lymphocytes (20.5 - 51.1 %) 6 L Monocytes (1.7 - 9.3 %) 5 Absolute Monocytes (0.10 - 0.60 /CUMM) 0.3 Eosinophils (0 - 5.0 %) 3 Absolute Eosinophils (0.0 - 0.7 /CUMM) 0.8 Absolute Basophils (0.0 - 0.2 /CUMM) 0.2 Platelet Estimate (ADEQUATE) VERIFIED BY SMEAR Anisocytosis 1+ Macrocytic Cells 1+ 08/28 0639 Hematology CBC w Diff MAN DIFF ORDERED WBC (4.8 - 10.8 /CUMM) 25.3 H RBC (4.70 - 6.10 /CUMM) 3.19 L Hgb (14.0 - 18.0 G/DL) 11.7 L Hct (42 - 52 %) 35.1 L MCV (80.0 - 94.0 FL) 110.0 H MCH (27.0 - 31.0 PG) 36.6 H MCHC (33.0 - 37.0 G/DL) 33.3 RDW (11.5 - 14.5 %) 14.6 H Plt Count (130 - 400 /CUMM) 239 MPV (7.4 - 10.4 FL) 7.9 Gran % (42.2 - 75.2 %) 88.4 H Lymphocytes % (20.5 - 51.1 %) 8.0 L Monocytes % (1.7 - 9.3 %) 0.4 L Eosinophils % (0 - 5 %) 2.9 Basophils % (0.0 - 2.0 %) 0.3 Absolute Granulocytes (1.4 - 6.5 /CUMM) 22.4 H Segmented Neutrophils (42.2 - 75.2 %) 76 H Band Neutrophils (0.0 - 5.0 %) 5 Absolute Lymphocytes (1.2 - 3.4 /CUMM) 2.0 Lymphocytes (20.5 - 51.1 %) 14 L Monocytes (1.7 - 9.3 %) 2 Absolute Monocytes (0.10 - 0.60 /CUMM) 0.1 Eosinophils (0 - 5.0 %) 1 Absolute Eosinophils (0.0 - 0.7 /CUMM) 0.7 Basophils (0.0 - 2.0 %) 2 Absolute Basophils (0.0 - 0.2 /CUMM) 0.1 Platelet Estimate (ADEQUATE) VERIFIED BY SMEAR Normocytic RBCs VERIFIED Normochromic RBCs VERIFIED 12/08 629 Hematology CBC w Diff MAN DIFF ORDERED WBC (4.8 - 10.8 /CUMM) 25.5 H RBC (4.70 - 6.10 /CUMM) 3.38 L Hgb (14.0 - 18.0 G/DL) 12.5 L Hct (42 - 52 %) 37.0 L MCV (80.0 - 94.0 FL) 109.4 H MCH (27.0 - 31.0 PG) 37.0 H MCHC (33.0 - 37.0 G/DL) 33.8 RDW (11.5 - 14.5 %) 14.8 H Plt Count (130 - 400 /CUMM) 225 MPV (7.4 - 10.4 FL) 8.1 Gran % (42.2 - 75.2 %) 89.5 H Lymphocytes % (20.5 - 51.1 %) 6.8 L Monocytes % (1.7 - 9.3 %) 0.5 L Eosinophils % (0 - 5 %) 2.4 Basophils % (0.0 - 2.0 %) 0.8 Absolute Granulocytes (1.4 - 6.5 /CUMM) 22.8 H Segmented Neutrophils (42.2 - 75.2 %) 82 H Band Neutrophils (0.0 - 5.0 %) 6 H Absolute Lymphocytes (1.2 - 3.4 /CUMM) 1.7 Lymphocytes (20.5 - 51.1 %) 7 L Absolute Monocytes (0.10 - 0.60 /CUMM) 0.1 Eosinophils (0 - 5.0 %) 4 Absolute Eosinophils (0.0 - 0.7 /CUMM) 0.6 Absolute Basophils (0.0 - 0.2 /CUMM) 0.2 Myelocytes (0 - 0 %) 1 H Nucleated RBCs (0.0 - 0.0 /100WBC) 2 H Platelet Estimate (ADEQUATE) VERIFIED BY SMEAR Polychromasia 1+ Macrocytic Cells 1+ Imaging/Other Studies: Pathology pending
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
[2017-12-10 15:09] VITALS: BP 104/64
--- NOTE | 2017-12-10 15:17 | PN- Att Addend ---
Attending Addendum Attending Brief Note Patient in bed still complaining of the pain issues. Vital signs are stable, no fever. No new changes on physical. His white count is still up but was noted that after the upper endoscopy is hydroxyurea was not renewed. This will be restarted. Patient will need short-term rehab not so much for his inability to walk and move around but because of some confusion and medication adjustments and the pain he would benefit from some short-term rehab, arrangements were started as soon as we have a place will transfer. Intake & Output 12/10 1600 12/10 04012/09 1600 12/09 0400 12/08 1600 12/08 0400 Intake Total 100 600 180 120 120 Output Total 525 920 850 300 250 Balance -425 -920 -250 -120 -130 120 Intake, IV 0 Intake, Oral 100 600 180 120 120 Number 1 0 0 Bowel Movements Output, Urine 525 920 850 300 250 Current Medications Sig/Som Start time Last Medication Dose Route Stop Time Status Admin Acetaminophen 0 .STK-MED ONE 12/10 09 DC PO Acetaminophen 650 MG Q8P PRN 12/04 1530 12/10 PO 0921 Aspirin 81 MG DAILY 12/05 09 12/10 PO 0916 Docusate Sodium 100 MG DAILY NEEDED PRN 12/08 2115 12/08 PO 2107 Heparin Sodium 5,000 UNIT Q8 12/04 2200 AC 12/10 (Porcine) SC 1400 Hydroxyurea 500 MG DAILY 12/10 1004 AC 12/10 PO 1229 Morphine Sulfate 2 MG Q8P PRN 12/04 1700 12/09 IV 0638 Ondansetron HCl 4 MG Q6P PRN 12/04 1530 12/04 IV 1817 Pantoprazole Sodium 40 MG BID 12/05 2100 12/10 IV 0917 Patient Medication 1 ED ONE ONE 12/09 1900 DC 12/09 Teaching ED 12/09 190 2108 Polyethylene Glycol 17 GM DAILY 12/06 1450 12/09 PO 0748 Senna 187 MG AT BEDTIME 12/07 2100 12/09 PO 2107 Sucralfate 1 GM 4 TIMES/DAY 12/05 2100 AC 12/10 PO 1229 Tamsulosin HCl 0.4 MG DAILY 12/05 0900 12/10 PO 0917 Tramadol HCl 50 MG Q8P PRN 12/04 1700 AC 12/10 PO 0456 Laboratory Tests 12/10/17 0640: CBC w Diff MAN DIFF ORDERED, RBC 2.99 L, MCV 109.0 H, MCH 37.3 H, MCHC 34.2, RDW 15.1 H, MPV 8.1, Gran % 88.5 H, Lymphocytes % 7.1 L, Monocytes % 1.1 L, Eosinophils % 2.6, Basophils % 0.7, Absolute Granulocytes 26.8 H, Segmented Neutrophils 82 H, Band Neutrophils 4, Absolute Lymphocytes 2.2, Lymphocytes 6 L, Monocytes 5, Absolute Monocytes 0.3, Eosinophils 3, Absolute Eosinophils 0.8, Absolute Basophils 0.2, Platelet Estimate VERIFIED BY SMEAR, Anisocytosis 1+, Macrocytic Cells 1+ 12/09/17 0639: CBC w Diff MAN DIFF ORDERED, RBC 3.19 L, MCV 110.0 H, MCH 36.6 H, MCHC 33.3, RDW 14.6 H, MPV 7.9, Gran % 88.4 H, Lymphocytes % 8.0 L, Monocytes % 0.4 L, Eosinophils % 2.9, Basophils % 0.3, Absolute Granulocytes 22.4 H, Segmented Neutrophils 76 H, Band Neutrophils 5, Absolute Lymphocytes 2.0, Lymphocytes 14 L, Monocytes 2, Absolute Monocytes 0.1, Eosinophils 1, Absolute Eosinophils 0.7, Basophils 2, Absolute Basophils 0.1, Platelet Estimate VERIFIED BY SMEAR, Normocytic RBCs VERIFIED, Normochromic RBCs VERIFIED 12/08/17 0630: CBC w Diff MAN DIFF ORDERED, RBC 3.38 L, MCV 109.4 H, MCH 37.0 H, MCHC 33.8, RDW 14.8 H, MPV 8.1, Gran % 89.5 H, Lymphocytes % 6.8 L, Monocytes % 0.5 L, Eosinophils % 2.4, Basophils % 0.8, Absolute Granulocytes 22.8 H, Segmented Neutrophils 82 H, Band Neutrophils 6 H, Absolute Lymphocytes 1.7, Lymphocytes 7 L, Absolute Monocytes 0.1, Eosinophils 4, Absolute Eosinophils 0.6, Absolute Basophils 0.2, Myelocytes 1 H, Nucleated RBCs 2 H, Platelet Estimate VERIFIED BY SMEAR, Polychromasia 1+, Macrocytic Cells 1+ Vital Signs Date Time Temp Pulse Resp B/P B/P Pulse O2 O2 Flow FiO2 Mean Ox Delivery Rate 12/10 1509 98.0 106 18 104/64 96 12/10 0917 97.7 90 20 122/76 12/10 0542 97.7 90 20 122/76 95 Room Air 12/09 2220 98.1 87 19 120/60 95 Room Air
[2017-12-10 22:37] VITALS: BP 112/64
[2017-12-11 06:32] VITALS: BP 106/70
--- NOTE | 2017-12-11 07:31 | PN- Hematology ---
Subjective Subjective: Offers no specific complaints, hiccups diminished, ? Slightly confused confused Objective Vital Signs and I&Os Vital Signs Date Time Temp Pulse Resp B/P B/P Pulse O2 O2 Flow FiO2 Mean Ox Delivery Rate 12/11 0632 98.4 72 20 106/70 92 12/10 2237 98.6 101 20 112/64 94 Room Air 12/10 1509 98.0 106 18 104/64 96 12/10 0917 97.7 90 20 122/76 Intake & Output 12/11 0000 12/10 1600 12/10 0812/10 0000 12/09 1600 Intake Total 200 1120 100 360 Output Total 600 625 600 620 400 Balance -400 495 -500 -620 -40 Intake, IV 0 Intake, Oral 200 1120 100 360 Number 1 3 0 Bowel Movements Output, Urine 600 625 600 620 400 Gen.: in NAD ENT: Sclera anicteric Chest: Normal respiratory effort, decreased breath sounds Cor: RRR, no extra sounds Abdomen: Soft, bowel sounds present, no tenderness, Extremdecreased hout clubbing, cyanosis, or asymmetric asymmetric edema Neurology: Awake no gross deficit Skin: No rashes Current Medications: Current Medications Sig/Som Start time Last Medication Dose Route Stop Time Status Admin Acetaminophen 0 .STK-MED ONE 12/10 921 DC PO Acetaminophen 650 MG Q8P PRN 12/04 1530 AC 12/10 PO 0921 Aspirin 81 MG DAILY 12/05 0900 AC 12/10 PO 0916 Docusate Sodium 100 MG DAILY NEEDED PRN 12/08 2115 AC 12/08 PO 2107 Heparin Sodium 5,000 UNIT Q8 12/04 2200 AC 12/11 (Porcine) SC 0613 Hydroxyurea 1,000 MG DAILY 12/10 1645 AC 12/10 PO 1758 Hydroxyurea 500 MG DAILY 12/10 1004 DC 12/10 PO 1229 Morphine Sulfate 2 MG Q8P PRN 12/04 1700 AC 12/09 IV 0638 Ondansetron HCl 4 MG Q6P PRN 12/04 1530 AC 12/04 IV 1817 Pantoprazole Sodium 40 MG BID 12/05 2100 AC 12/10 IV 2004 Polyethylene Glycol 17 GM DAILY 12/06 1450 AC 12/09 PO 0748 Senna 187 MG AT BEDTIME 12/07 2100 AC 12/10 PO 2004 Sucralfate 1 GM 4 TIMES/DAY 12/05 2100 AC 12/10 PO 2004 Tamsulosin HCl 0.4 MG DAILY 12/05 0900 AC 12/10 PO 0917 Tramadol HCl 50 MG Q8P PRN 12/04 1700 AC 12/10 PO 1754 Results Last 24 Hours of Lab Results: Laboratory Tests 12/11 0700 Hematology CBC w Diff Pending WBC Pending RBC Pending Hgb Pending Hct Pending MCV Pending MCH Pending MCHC Pending RDW Pending Plt Count Pending MPV Pending Assessment/Plan Hematology Assessment/Recommendations: 1. Myeloproliferative disorder Myeloproliferative disorder-white blood countwhite blood count approximate 30,000 unlikely causing any clinical sequelae Recommend- Hold off on restarting hydroxyurea urea Follow CBC 2. GI-await final pathology and final pathology Patient is agreeable to follow up in my office
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
[2017-12-11] MEDS ORDERED: ASPIRIN81 M4 PO (08:33)
[2017-12-11] MEDS ORDERED: PANTOPRAZOLE SO40 M1 PO (08:33)
[2017-12-11] MEDS ORDERED: SUCRALFATE1 GM/10 M1 PO (08:33)
--- NOTE | 2017-12-11 08:35 | Patient Discharge Instructions ---
Discharge Instructions General Discharge Information Special Instructions: - Please check CBC on a weekly basis. - Please order swallow eval at rehab to assess patient's swallow capability. - Please follow up with your GI specialist Dr. Ferguson within 1-2 weeks of discharge. - Please follow up with your Blood specialist Dr. Shea within 1-2 weeks of discharge. - Please follow up with your primary care physician within 1-2 weeks of discharge. Inform your primary care physician of this admission to [facility]. - Continue your current medications per discharge instructions. - Please watch for these problems: Fever, Chills, Nausea, Vomiting, Shortness of Breath, Productive Cough, Chest Pain/Discomfort, Abdominal Pain, Active Bleeding or Bloody urine/stool. Diet Continue normal diet: Yes Recommended Diet: Heart Healthy Activity Full Activity/No Limits: Yes Acute Coronary Syndrome Inclusion Criteria At DC or during hospital stay patient has or had the following: ACS DIAGNOSIS No Discharge Core Measures Meds if any: Prescribed or Continued at Discharge Meds if any: NOT Prescribed or Continued at Discharge Congestive Heart Failure Inclusion Criteria At DC or during hospital stay patient has or had the following: CHF DIAGNOSIS No Discharge Core Measures Meds if any: Prescribed or Continued at Discharge Meds if any: NOT Prescribed or Continued at Discharge Cerebrovascular accident Inclusion Criteria At DC or during hospital stay patient has or had the following: CVA/TIA Diagnosis No Discharge Core Measures Meds if any: Prescribed or Continued at Discharge Meds if any: NOT Prescribed or Continued at Discharge Venous thromboembolism Inclusion Criteria VTE Diagnosis No VTE Type NONE VTE Confirmed by (Test) NONE Discharge Core Measures - Per Current guidelines, there needs to be overlap - treatment for the first 5 days of Warfarin therapy. - If discharged on Warfarin prior to 5 days of - overlap therapy, the patient will need to be - assessed for post discharge needs including - *Post discharge parental anticoagulation - *Warfarin and/or parental anticoagulation education - *Follow up date to check INR post discharge At least 5 days overlap therapy as Inpatient No Meds if any: Prescribed or Continued at Discharge Note: Overlap Therapy is Warfarin and Anticoagulant Meds if any: NOT Prescribed or Continued at Discharge
[2017-12-11 08:46] LABS: ABSOLUTE BASOPHIL COUNT 0.1 /CUMM (0.0-0.2); ABSOLUTE EOSINOPHIL COUNT 0.7 /CUMM (0.0-0.7); ABSOLUTE GRANULOCYTE CT 23.9 /CUMM (1.4-6.5); ABSOLUTE LYMPH COUNT 2.3 /CUMM (1.2-3.4); ABSOLUTE MONOCYTE COUNT 0.1 /CUMM (0.10-0.60); BASOPHIL % 0.5 % (0.0-2.0); EOSINOPHIL % 2.7 % (0-5); GRANULOCYTE % 87.9 % (42.2-75.2); MEAN CORPUSCULAR HGB 37.2 PG (27.0-31.0); MEAN CORPUSCULAR HGB CONC 34.3 G/DL (33.0-37.0); MEAN CORPUSCULAR VOLUME 108.6 FL (80.0-94.0); MEAN PLATELET VOLUME 8.1 FL (7.4-10.4); PLATELET COUNT 261 /CUMM (130-400); RBC DISTRIBUTION WIDTH 14.3 % (11.5-14.5); RED BLOOD CELL CT 2.38 /CUMM (4.70-6.10); WHITE BLOOD CELL COUNT 27.2 /CUMM (4.8-10.8)
[2017-12-11 09:02] LABS: HEMATOCRIT 25.8 % (42-52)
--- NOTE | 2017-12-11 10:26 | PN- Att Addend ---
Attending Addendum Attending Brief Note Patient in bed, just getting his IV PPI. Still complaining of some pain. Had 1 stool positive for occult blood. His vital signs are stable no fever. No new changes on physical examination. Appreciate hematology's input regarding holding his hydroxyurea. Also will continue GIs recommendations. Patient was seen by physical therapy and at this time they agreed that he would benefit from short-term rehabilitation. Searching for bed. Intake & Output 12/11 1600 12/11 0400 12/10 0400 12/09 1600 12/09 040 Intake Total 444 403 5085 600 180 Output Total 200 600 925 920 850 300 Balance -1 -400 295 -920 -250 -120 Intake, IV 0 Intake, Oral 750 844 1582 600 180 Number 1 3 0 Bowel Movements Output, Urine 200 600 925 920 850 300 Current Medications Sig/Som Start time Last Medication Dose Route Stop Time Status Admin Acetaminophen 650 MG Q8P PRN 12/04 1530 AC 12/10 PO 0921 Aspirin 81 MG DAILY 12/05 09 AC 12/11 PO 1012 Docusate Sodium 100 MG DAILY NEEDED PRN 12/08 2115 AC 12/08 PO 2107 Heparin Sodium 5,000 UNIT Q8 12/04 2200 AC 12/11 (Porcine) SC 0613 Hydroxyurea 1,000 MG DAILY 12/10 1645 DC 12/10 PO 1758 Hydroxyurea 500 MG DAILY 12/10 1004 DC 12/10 PO 1229 Morphine Sulfate 2 MG Q8P PRN 12/04 1700 AC 12/09 IV 0638 Ondansetron HCl 4 MG Q6P PRN 12/04 1530 AC 12/04 IV 1817 Pantoprazole Sodium 40 MG BID 12/05 2100 AC 12/11 IV 1012 Polyethylene Glycol 17 GM DAILY 12/06 1450 AC 12/09 PO 0748 Senna 187 MG AT BEDTIME 12/07 2100 AC 12/10 PO 2005 Sucralfate 1 GM 4 TIMES/DAY 12/05 2099 AC 12/11 PO 1012 Tamsulosin HCl 0.4 MG DAILY 12/05 09 AC 12/11 PO 1012 Tramadol HCl 50 MG Q8P PRN 12/04 1700 AC 12/10 PO 1754 Laboratory Tests 12/11/17 0700: CBC w Diff MAN DIFF ORDERED, RBC 2.38 L, MCV 108.6 H, MCH 37.2 H, MCHC 34.3, RDW 14.3, MPV 8.1, Gran % 87.9 H, Lymphocytes % 8.5 L, Monocytes % 0.4 L, Eosinophils % 2.7, Basophils % 0.5, Absolute Granulocytes 23.9 H, Segmented Neutrophils 78 H, Band Neutrophils 1, Absolute Lymphocytes 2.3, Lymphocytes 14 L, Monocytes 3, Absolute Monocytes 0.1, Eosinophils 4, Absolute Eosinophils 0.7, Absolute Basophils 0.1, Platelet Estimate VERIFIED BY SMEAR, Anisocytosis 1+, Macrocytic Cells 1+ 12/10/17 0640: CBC w Diff MAN DIFF ORDERED, RBC 2.99 L, MCV 109.0 H, MCH 37.3 H, MCHC 34.2, RDW 15.1 H, MPV 8.1, Gran % 88.5 H, Lymphocytes % 7.1 L, Monocytes % 1.1 L, Eosinophils % 2.6, Basophils % 0.7, Absolute Granulocytes 26.8 H, Segmented Neutrophils 82 H, Band Neutrophils 4, Absolute Lymphocytes 2.2, Lymphocytes 6 L, Monocytes 5, Absolute Monocytes 0.3, Eosinophils 3, Absolute Eosinophils 0.8, Absolute Basophils 0.2, Platelet Estimate VERIFIED BY SMEAR, Anisocytosis 1+, Macrocytic Cells 1+ 12/09/17 0639: CBC w Diff MAN DIFF ORDERED, RBC 3.19 L, MCV 110.0 H, MCH 36.6 H, MCHC 33.3, RDW 14.6 H, MPV 7.9, Gran % 88.4 H, Lymphocytes % 8.0 L, Monocytes % 0.4 L, Eosinophils % 2.9, Basophils % 0.3, Absolute Granulocytes 22.4 H, Segmented Neutrophils 76 H, Band Neutrophils 5, Absolute Lymphocytes 2.0, Lymphocytes 14 L, Monocytes 2, Absolute Monocytes 0.1, Eosinophils 1, Absolute Eosinophils 0.7, Basophils 2, Absolute Basophils 0.1, Platelet Estimate VERIFIED BY SMEAR, Normocytic RBCs VERIFIED, Normochromic RBCs VERIFIED Vital Signs Date Time Temp Pulse Resp B/P B/P Pulse O2 O2 Flow FiO2 Mean Ox Delivery Rate 12/11 1012 116/70 12/11 0840 Room Air Room Air 12/11 0808 Room Air Room Air 12/11 0632 98.4 72 20 106/70 92 12/10 2237 98.6 101 20 112/64 94 Room Air 12/10 1509 98.0 106 18 104/64 96
[2017-12-11 14:13] VITALS: BP 110/70
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
[2017-12-11 22:24] VITALS: BP 112/60
[2017-12-12 06:43] VITALS: BP 104/70
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
[2017-12-12 09:39] LABS: ABSOLUTE BASOPHIL COUNT 0.1 /CUMM (0.0-0.2); ABSOLUTE EOSINOPHIL COUNT 0.5 /CUMM (0.0-0.7); ABSOLUTE GRANULOCYTE CT 21.9 /CUMM (1.4-6.5); ABSOLUTE LYMPH COUNT 1.7 /CUMM (1.2-3.4); ABSOLUTE MONOCYTE COUNT 0.1 /CUMM (0.10-0.60); BASOPHIL % 0.3 % (0.0-2.0); EOSINOPHIL % 2.2 % (0-5); GRANULOCYTE % 90.2 % (42.2-75.2); MEAN CORPUSCULAR HGB 37.6 PG (27.0-31.0); MEAN CORPUSCULAR HGB CONC 34.5 G/DL (33.0-37.0); MEAN CORPUSCULAR VOLUME 109.2 FL (80.0-94.0); MEAN PLATELET VOLUME 7.9 FL (7.4-10.4); PLATELET COUNT 248 /CUMM (130-400); RBC DISTRIBUTION WIDTH 14.8 % (11.5-14.5); WHITE BLOOD CELL COUNT 24.3 /CUMM (4.8-10.8)
[2017-12-12 10:10] LABS: HEMATOCRIT 20.7 % (42-52)
[2017-12-12 12:00] VITALS: BP 100/50
[2017-12-12 12:44] LABS: PT 12.1 SEC (9.4-12.5)
--- NOTE | 2017-12-12 13:09 | PN- Att Addend ---
Attending Addendum Attending Brief Note No problems some abdominal discomfort some abdominal distention, positive stools for occult blood. Also drop in the hematocrit and hemoglobin. His vital signs are stable no fever.. Hemoglobin 7.1 hematocrit 20.7. And crossmatched and transfuse., Also get a flat plate of the abdomen will report the findings to GI will keep n.p.o.. Patient also was seen by psych further recommendations. Patient not ready to leave the hospital today. Intake & Output 12/12 1600 12/12 0400 12/11 1600 12/11 0400 12/10 1600 12/10 0400 Intake Total 100 240 697 155 9297 Output Total 700 550 600 925 920 Balance 100 -460 129 -400 295 -920 Intake, IV 0 Intake, Oral 100 240 767 952 0717 Number 7 1 1 3 Bowel Movements Output, Urine 700 550 600 925 920 Current Medications Sig/Som Start time Last Medication Dose Route Stop Time Status Admin Acetaminophen 650 MG Q8P PRN 12/04 1530 AC 12/12 PO 0921 Aspirin 81 MG DAILY 12/05 09 DC 12/12 PO 0920 Docusate Sodium 100 MG DAILY NEEDED PRN 12/08 2115 AC 12/08 PO 2107 Heparin Sodium 5,000 UNIT Q8 12/04 2200 AC 12/12 (Porcine) SC 0522 Morphine Sulfate 2 MG Q8P PRN 12/04 1700 DC 12/09 IV 0638 Omeprazole 40 MG BID 12/11 1045 DC 12/12 PO 0920 Ondansetron HCl 4 MG Q6P PRN 12/04 1530 AC 12/04 IV 1817 Pantoprazole Sodium 40 MG Q5H 12/12 1115 AC Sodium Chloride 100 ML IV Polyethylene Glycol 17 GM DAILY 12/06 1450 AC 12/12 PO 09 Senna 187 MG AT BEDTIME 12/07 2100 AC 12/11 PO 205 Sodium Chloride 1,000 ML BOLUS ONE 12/12 1200 AC 12/12 IV 12/12 1359 1153 Sucralfate 1 GM 4 TIMES/DAY 12/05 2100 AC 12/12 PO 0921 Tamsulosin HCl 0.4 MG DAILY 12/05 0900 AC 12/12 PO 0921 Tramadol HCl 50 MG Q8P PRN 12/04 1700 DC 12/10 PO 1754 Laboratory Tests 12/12/17 1101: PT 12.1, INR 1.11 12/12/17 0834: CBC w Diff MAN DIFF ORDERED, RBC 1.90 L, MCV 109.2 H, MCH 37.6 H, MCHC 34.5, RDW 14.8 H, MPV 7.9, Gran % 90.2 H, Lymphocytes % 6.9 L, Monocytes % 0.4 L, Eosinophils % 2.2, Basophils % 0.3, Absolute Granulocytes 21.9 H, Segmented Neutrophils 78 H, Band Neutrophils 5, Absolute Lymphocytes 1.7, Lymphocytes 3 L, Monocytes 10 H, Absolute Monocytes 0.1, Eosinophils 3, Absolute Eosinophils 0.5, Basophils 1, Absolute Basophils 0.1, Anisocytosis 1+, Macrocytic Cells 3+ 12/11/17 0700: CBC w Diff MAN DIFF ORDERED, RBC 2.38 L, MCV 108.6 H, MCH 37.2 H, MCHC 34.3, RDW 14.3, MPV 8.1, Gran % 87.9 H, Lymphocytes % 8.5 L, Monocytes % 0.4 L, Eosinophils % 2.7, Basophils % 0.5, Absolute Granulocytes 23.9 H, Segmented Neutrophils 78 H, Band Neutrophils 1, Absolute Lymphocytes 2.3, Lymphocytes 14 L, Monocytes 3, Absolute Monocytes 0.1, Eosinophils 4, Absolute Eosinophils 0.7, Absolute Basophils 0.1, Platelet Estimate VERIFIED BY SMEAR, Anisocytosis 1+, Macrocytic Cells 1+ 12/10/17 0640: CBC w Diff MAN DIFF ORDERED, RBC 2.99 L, MCV 109.0 H, MCH 37.3 H, MCHC 34.2, RDW 15.1 H, MPV 8.1, Gran % 88.5 H, Lymphocytes % 7.1 L, Monocytes % 1.1 L, Eosinophils % 2.6, Basophils % 0.7, Absolute Granulocytes 26.8 H, Segmented Neutrophils 82 H, Band Neutrophils 4, Absolute Lymphocytes 2.2, Lymphocytes 6 L, Monocytes 5, Absolute Monocytes 0.3, Eosinophils 3, Absolute Eosinophils 0.8, Absolute Basophils 0.2, Platelet Estimate VERIFIED BY SMEAR, Anisocytosis 1+, Macrocytic Cells 1+ Vital Signs Date Time Temp Pulse Resp B/P B/P Pulse O2 O2 Flow FiO2 Mean Ox Delivery Rate 12/12 0921 60 110/60 12/12 0643 98.0 66 20 104/70 96 12/11 2224 98.3 84 19 112/60 94 Room Air 12/11 1600 Room Air 12/11 1413 98.1 68 18 110/70 93 Room Air
--- NOTE | 2017-12-12 13:41 | RADIOLOGY REPORT ---
EXAMINATION: XR ABDOMEN MULTIPLE VIEWS CLINICAL INDICATION: Acute onset abdominal pain status post EGD 2 days ago. Black stool x 4 overnight. COMPARISON: Abdomen 12/09/2017. TECHNIQUE: AP supine and upright views (4 images) of the abdomen. FINDINGS: The bowel gas pattern is unremarkable. There is no evidence of obstruction. There is no apparent free air. There are no soft tissue masses. There are hypertrophic degenerative changes of the spine. IMPRESSION: No evidence of obstruction or free air.
[2017-12-12 13:54] VITALS: BP 98/50
[2017-12-12 18:10] VITALS: BP 110/58
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
[2017-12-12 23:04] LABS: ABSOLUTE BASOPHIL COUNT 0 /CUMM (0.0-0.2); ABSOLUTE EOSINOPHIL COUNT 0.6 /CUMM (0.0-0.7); ABSOLUTE GRANULOCYTE CT 22.6 /CUMM (1.4-6.5); ABSOLUTE LYMPH COUNT 1.9 /CUMM (1.2-3.4); ABSOLUTE MONOCYTE COUNT 0.5 /CUMM (0.10-0.60); BASOPHIL % 0.1 % (0.0-2.0); EOSINOPHIL % 2.3 % (0-5); HEMATOCRIT 20.8 % (42-52); MEAN CORPUSCULAR HGB 36.4 PG (27.0-31.0); MEAN CORPUSCULAR HGB CONC 34.4 G/DL (33.0-37.0); MEAN CORPUSCULAR VOLUME 105.6 FL (80.0-94.0); MEAN PLATELET VOLUME 7.5 FL (7.4-10.4); PLATELET COUNT 257 /CUMM (130-400); RBC DISTRIBUTION WIDTH 17.6 % (11.5-14.5); RED BLOOD CELL CT 1.97 /CUMM (4.70-6.10); WHITE BLOOD CELL COUNT 25.6 /CUMM (4.8-10.8)
[2017-12-12 23:10] VITALS: BP 120/60
[2017-12-12 23:10] LABS: GRANULOCYTE % 88.3 % (42.2-75.2)
[2017-12-12 23:36] VITALS: BP 114/52
[2017-12-13 06:45] VITALS: BP 98/50
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
[2017-12-13 09:03] LABS: ABSOLUTE BASOPHIL COUNT 0.2 /CUMM (0.0-0.2); ABSOLUTE EOSINOPHIL COUNT 0.6 /CUMM (0.0-0.7); ABSOLUTE GRANULOCYTE CT 22.6 /CUMM (1.4-6.5); ABSOLUTE MONOCYTE COUNT 0.7 /CUMM (0.10-0.60); BASOPHIL % 0.6 % (0.0-2.0); EOSINOPHIL % 2.2 % (0-5); GRANULOCYTE % 86.8 % (42.2-75.2); HEMATOCRIT 20.2 % (42-52); MEAN CORPUSCULAR HGB 36.6 PG (27.0-31.0); MEAN CORPUSCULAR HGB CONC 34.3 G/DL (33.0-37.0); MEAN CORPUSCULAR VOLUME 106.9 FL (80.0-94.0); MEAN PLATELET VOLUME 7.5 FL (7.4-10.4); PLATELET COUNT 246 /CUMM (130-400); RBC DISTRIBUTION WIDTH 17.7 % (11.5-14.5); RED BLOOD CELL CT 1.89 /CUMM (4.70-6.10)
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
[2017-12-13 11:15] VITALS: BP 126/70
[2017-12-13 11:45] VITALS: BP 120/60
--- NOTE | 2017-12-13 11:48 | Proc Note Endoscopy ---
Endoscopy Procedure Medical History: unchanged Mental Status: confused Heart/Lung Eval Prior to Sedation: within normal limits Candidate for Sedation? Yes Procedure Date: 12/13/17 Procedure Type: EGD with BiCAP/clipping x 4 Malt Specifications Control Assistant: ANGELITA BALLARD MD ASA Classification: III (III-E) Indications: INDX: (*Please refer to 12/05/17: inpt covering GI consultation per Dr. Tashi Ferguson, & 12/08/17: EGD per Dr. Bairon Ferguson. 86 y/o male, with numerous comorbidities including myeloproliferative disorder, intermittently on Hydrea, dementia, history of melanoma, etc., with anemia, melena, esophagitis, hypotension. 2001: Colonoscopy in [place], [place], by Dr. Cordero- "normal." 02/20/10: H. pylori Ab- neg. 05/21/13: Normal IgA 109, tTG Ab- negative, DGP Ab- negative 06/17/2013: Combined baseline upper endoscopy to the third portion of the duodenum with biopsies, plus followup colonoscopy to the terminal ileum with biopsies, with the pediatric colonoscope by myself- random biopsies duodenum normal villi, random gastric biopsies- H. pylori negative, with mild congestion, minimal esophagitis without EOE; moderate camargo diverticulosis coli, left-sided greater than right, normal colonic mucosa to the terminal ileum with multiple random biopsies of the terminal ileum, right colon, left colon, and *rectum- negative. 11/27/15: [facility] admit for probable food poisoning (bacterial > viral), doubt ischemia/IBD. Empirically treated with IV Ceftriaxone & Flagyl then, switched to po Cipro & Flagyl x 5d. No surgical abdomen then, per Dr. Cruz. 04/29/15: Stool culture, C. difficile, Shiga toxin-all negative. 04/28/15: BC x 2- negative. 04/28/15: CT abdomen and pelvis with IV contrast- 1. Diverticulosis. No evidence of acute diverticulitis. 2. A few segments of mildly dilated bowel in the central abdomen with borderline thickened loops of small bowel just distal to this. These findings due to a mild enteritis with associated ileus. The cause of the small bowel inflammation is uncertain, potentially infectious in nature. The absence of a focal transition point makes small bowel obstruction less likely. 3. Mild *chronic rectal wall thickening, less pronounced as compared to prior studies. 05/01/2015: CT abdomen & pelvis with IV/po contrast- Slight increase in prominence of small bowel in the central abdomen when compared to the recent prior study is most suggestive of ileus associated with mild enteritis. No focal transition point to suggest obstruction. Gas and stool are present in the colon as well. Diverticulosis without evidence of diverticulitis. Chronic rectal wall thickening. 02/02/17-: [facility] readmit for right foot cellulitis-> abx, w/o osteomyelitis. The GI service was consulted 12/05/17, as above, to assess atypical chest pain , hiccuping, & abdominal pain, felt to be esophageal in nature. He was rxd IV PPI BID & Carafate. 12/04/17: CXR- NAD. 12/04/17: *CTA CAP- neg PE, normal aorta, diffuse thickening of esophageal wall with esophagitis, no mediastinitis, mild chronic bowel wall thickening of the distal rectum and sigmoid without edema (*previous biopsies negative), diverticulosis without diverticulitis, mild splenomegaly. 12/08/17: *EGD per Dr. Bairon Ferguson to D3-severe esophagitis starting at 30 cm with denuding of mucosa, GEJ at 38 cm, small HH; esoph bxs: squamous mucosa with focal reactive change & mild acute inflammation without EOE, separate fragment of fibrinopurulent exudate, no Ca. Gastric bxs-reactive gastropathy, H. pylori negative. Since then, the patient has had recurrent anemia requiring transfusions, intermittent melena, and borderline low BP. Baby aspirin was stopped. *He is currently on an IV Protonix drip, along with Carafate. Instrument: diagnostic gastroscope Meds Received: MAC Patient's Tolerance: good (proph intub intraop) Complications: none Extent Reached: D3 Procedure: Follow-up upper endoscopy to the third portion of the duodenum with biopsies, was performed with the Olympus high definition videoendoscope, after obtaining informed consent from the patient, with the rn cardiac rehab and pulse oximeter, with the assistance of Dr. Caldwell, of [facility] & the GI RNs television and radio repairer, Marcus, after the patient was transfered to room #111 in the [facility], for sedation. The patient's false teeth had been removed preoperatively. He was edentulous. A mouthpiece was placed in the usual fashion to protect the patient's oral cavity. The patient was placed in the left lateral decubitus position and sedated by [facility]. At this point , the endoscope was advanced from the mouth into the esophagus, using direct visualization technique. The vocal cords appeared normal. The proximal esophageal mucosa appeared normal. There were no esophageal rings, webs, lesions, strictures, or ulcers. There was no monilia or vesicles. There was no esophageal ribbing. The esophageal mucosa revealed some scattered erosions from 30-38 cm, consistent with 1+ erosive distal GERD. By description, the endoscopic appearance of the esophagitis appeared better than on the 12/08/17: EGD. There was a large 2 cm oozing polypoid clot in the distal esophagus at 35 cm, which I felt was probably from an underlying qualitative platelet disorder, keeping in mind the patient's myeloproliferative disorder. This may have been emanating from previous biopsy sites. (*Please note, there was also a small hematoma in the LLQ abdominal wall). This was initially left intact, until the patient was prophylactically intubated, to protect his airway (*see below). The Z line was well demarcated at 38 cm. There was a small 1 cm sliding hiatal hernia pouch, without any Juwan erosions. There were no ectopic islands, nor gross Dupree's esophagus. There were no esophageal or gastric varices, nor any Christine Vergara tear. The hwang of the stomach distended normally with air insufflation. Direct and retroflexed views of the stomach were performed. There was nothing endoscopically to suggest gastroparesis or portal gastropathy. The mucosa of the gastric cardia, fundus, incisura, & body appeared normal, without any gastric ulcers or gastric lesions. There was an 8 mm oozing visible vessel/clot with BRB, towards the lesser curvature aspect of the antrum, without any underlying ulceration. 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 This was initially washed with the Yiopsy H2O jet, followed by BiCAP cautery, 20W/2 sec bursts, peripherally than centrally, with good results, followed by placement of a [employer] Resolution 360 Clip 1, which deployed in excellent location. There was cessation of bleeding in this region, after therapeutics were performed. The remainder of the gastric antrum was normal. The pylorus was patent, without any gastric outlet obstruction or channel ulcer. The duodenal bulb, duodenal sweep, & third portion of the duodenum appeared normal, without any duodenal ulcers, distal ulcerations, or angiodysplasias. I was not able to see the ampulla with the direct-viewing scope. Bile was seen in the duodenum. The folds of the second & third portions of the duodenum were normal in caliber, without any flattening, nodularity, scalloping, or mosaic pattern. The patient tolerated the procedure well. At this point, a decision was made to remove the endoscope, and have anesthesiology prophylactically intubate the patient to protect his airway, prior to attempting to control the bleeding site in the esophagus at 35 cm. The endoscope was removed and the patient was intubated by Dr. Goldstein uneventfully. The patient was then re-endoscoped under direct visualization. At this point, attention was focused on the large 2 cm oozing polypoid clot in the distal esophagus at 35 cm. This region was treated with BiCAP cautery, using 20W/2 sec bursts, peripherally than centrally, along with the use of the Yiopsy H2O jet. After this, the large clot in the esophagus at 35 cm fell off, exposing a non-ulcerated oozing red base. Additional BiCAP cautery was then performed, using the same settings, followed by [employer] Resolution 360 Clipping 3. 2 of the 3 clips in the esophagus deployed successfully. The third clip fell off. The angle was somewhat awkward, as the esophagus was parallel to the clips. The previous clip that deployed in the lesser curvature aspect of the gastric antrum was reinspected, and remained intact, in excellent position. Confirmatory photographs were obtained and placed inside the patient' s chart. The endoscope was removed and the patient was then extubated uneventfully by anesthesiology. A decision was made postoperatively to maintain the patient in the ICU for further monitoring, post therapeutic EGD. Impression: 1. 1+ erosive esophagitis from 30-38 cm/Z line. 2. Large 2 cm oozing polypoid clot in the distal esophagus at 35 cm-> BiCAP/ clipping x 3 (1 of the 3 clips fell off). 3. 1 cm sliding hiatal hernia pouch, from 38-39 cm. 4. 8 mm oozing visible vessel/clot with BRB, towards the lesser curvature aspect of the antrum, without any underlying ulceration-> BiCAP/clipping x 1. I feel that the above findings are most likely secondary to an underlying qualitative platelet defect, perhaps related to the patient's myeloproliferative disorder, although he has an adequate number of platelets. Recommendations: *Maintain in ICU for now. *Advise hematology follow-up, regarding possible qualitative platelet defect/myeloproliferative disorder. NPO except ice chips for now. *Continue IV Protonix drip. Continue Carafate. Check CBCs q.8h for now. Keep Hgb > 7.0. Supplemental O2 as needed. Strict I's and O's. 2 large- bore IVs. May continue Colace, Senna, MiraLAX, and Zofran. Baby ASA on hold for now. Defer to hematology regarding duration off Hydrea. Aspiration precautions. Workup of delirium/dementia per medical team. The patient is a full code. The above was discussed in detail with the ICU medical housestaff. I also spoke with the patient and called his daughter, Paulette Vee, postoperatively at [phone], to update her on the patient's condition. Further GI recommendations to follow, depending on clinical course. CC: Shabbir ROUSE,Angelita Muir; Marty ROUSE,Alo Butcher; Mack ROUSE,Richie
--- NOTE | 2017-12-13 14:35 | Event Note ---
Event Note Event Note: Pt was moved from general medical floor to ICU for upper endoscopy. Pt is status -post endoscopy by Dr Moon, who determined patient is too unstable for general medical floor given endoscopy findings. S/p 2u pRBC transfusions. Dr Giron was notified. Patients family notified as well. Hematology was reconsulted per Dr. Moon. Will f/u on reccs. Post transfusion CBC to be drawn. Vitally stable at this time; on protonix drip. A/Ox3, complains of neck, back, stomach pain. Will continue to monitor. Jin Yee #[id number]
[2017-12-13 15:22] LABS: ABSOLUTE BASOPHIL COUNT 0.1 /CUMM (0.0-0.2); ABSOLUTE EOSINOPHIL COUNT 0.8 /CUMM (0.0-0.7); ABSOLUTE GRANULOCYTE CT 30.1 /CUMM (1.4-6.5); ABSOLUTE LYMPH COUNT 1.8 /CUMM (1.2-3.4); ABSOLUTE MONOCYTE COUNT 0.8 /CUMM (0.10-0.60); BASOPHIL % 0.4 % (0.0-2.0); EOSINOPHIL % 2.4 % (0-5); GRANULOCYTE % 89.4 % (42.2-75.2); MEAN CORPUSCULAR HGB 34.5 PG (27.0-31.0); MEAN CORPUSCULAR VOLUME 101.7 FL (80.0-94.0); MEAN PLATELET VOLUME 7.3 FL (7.4-10.4); PLATELET COUNT 255 /CUMM (130-400); RBC DISTRIBUTION WIDTH 21.8 % (11.5-14.5)
[2017-12-13 15:31] LABS: HEMATOCRIT 25.6 % (42-52); RED BLOOD CELL CT 2.51 /CUMM (4.70-6.10); WHITE BLOOD CELL COUNT 33.7 /CUMM (4.8-10.8)
--- NOTE | 2017-12-13 15:47 | PN- Att Addend ---
Attending Addendum Attending Brief Note Patient yesterday had GI bleeding and drop in the H&H. GI consultation was requested. Patient had an upper endoscopy which showed a 1+ erosive esophagitis , a large 2 cm lucent clot in the distal esophagus at 35 cm which bicap and clipping was done. Also a 1 cm sliding hiatal hernia pouch and an 8 mm oozing visible vessel in the antrum. Patient after that was transferred to the ICU for close observation monitoring the H&H and transfuse if necessary. Also will CALL hematology no because GI thinks some of the bleeding may be related to his underlying blood dyscrasia. Intake & Output 12/13 0400 12/12 1600 12/12 04012/11 0400 Intake Total 026 65 2875 240 679 200 Output Total 600 500 300 700 550 600 Balance -80 -410 1000 -460 129 -400 Intake, Blood 350 Product Intake, IV 836 69 8548 Intake, Oral 30 30 300 240 679 200 Number 2 1 7 1 1 Bowel Movements Output, Urine 600 500 300 700 550 600 Current Medications Sig/Som Start time Last Medication Dose Route Stop Time Status Admin Acetaminophen 0 .STK-MED ONE 12/12 1624 DC IV Acetaminophen 1,000 MG Q6P PRN 12/12 1600 AC 12/13 N/A 1 UNIT IV 1456 Acetaminophen 650 MG Q8P PRN 12/04 1530 AC 12/12 PO 2044 Docusate Sodium 100 MG DAILY NEEDED PRN 12/08 2115 AC 12/08 PO 210 Ondansetron HCl 4 MG Q6P PRN 12/04 1530 AC 12/04 IV 1817 Pantoprazole Sodium 40 MG Q5H 12/12 1115 AC 12/13 Sodium Chloride 100 ML IV 1535 Polyethylene Glycol 17 GM DAILY 12/06 1450 AC 12/12 PO 926 Senna 187 MG AT BEDTIME 12/07 2100 AC 12/12 PO 204 Sucralfate 1 GM 4 TIMES/DAY 12/05 2100 AC 12/12 PO 204 Tamsulosin HCl 0.4 MG DAILY 12/05 0900 AC 12/12 PO 0921 Laboratory Tests 12/13/17 1436: CBC w Diff MAN DIFF ORDERED, WBC Pending, RBC Pending, Hgb Pending, Hct Pending, MCV Pending, MCH Pending, MCHC Pending, RDW Pending, Plt Count Pending, MPV Pending, Gran % Pending, Lymphocytes % Pending, Monocytes % Pending, Eosinophils % Pending, Basophils % Pending, Absolute Granulocytes Pending, Segmented Neutrophils Pending, Absolute Lymphocytes Pending, Absolute Monocytes Pending, Absolute Eosinophils Pending, Absolute Basophils Pending 12/13/17 0800: Anion Gap 6, Estimated GFR > 60, BUN/Creatinine Ratio 26.4 H, CBC w Diff MAN DIFF ORDERED, RBC 1.89 L, MCV 106.9 H, MCH 36.6 H, MCHC 34.3, RDW 17.7 H, MPV 7.5, Gran % 86.8 H, Lymphocytes % 7.6 L, Monocytes % 2.8, Eosinophils % 2.2, Basophils % 0.6, Absolute Granulocytes 22.6 H, Segmented Neutrophils 76 H , Band Neutrophils 1, Absolute Lymphocytes 2.0, Lymphocytes 16 L, Monocytes 4, Absolute Monocytes 0.7 H, Eosinophils 2, Absolute Eosinophils 0.6, Basophils 1, Absolute Basophils 0.2, Nucleated RBCs 1 H, Anisocytosis 2+, Macrocytic Cells 4 + 12/12/17 2236: CBC w Diff MAN DIFF ORDERED, RBC 1.97 L, MCV 105.6 H, MCH 36.4 H, MCHC 34.4, RDW 17.6 H, MPV 7.5, Gran % 88.3 H, Lymphocytes % 7.5 L, Monocytes % 1.8, Eosinophils % 2.3, Basophils % 0.1, Absolute Granulocytes 22.6 H, Segmented Neutrophils 90 H, Band Neutrophils 1, Absolute Lymphocytes 1.9, Lymphocytes 6 L, Absolute Monocytes 0.5, Eosinophils 2, Absolute Eosinophils 0.6, Absolute Basophils 0, Metamyelocytes 1, Platelet Estimate VERIFIED BY SMEAR, Anisocytosis 1+, Macrocytic Cells 1+, Fld Total RBCs Counted 100 12/12/17 1101: PT 12.1, INR 1.11 12/12/17 1100: CBC w Diff Cancelled, WBC Cancelled, RBC Cancelled, Hgb Cancelled, Hct Cancelled , MCV Cancelled, MCH Cancelled, MCHC Cancelled, RDW Cancelled, Plt Count Cancelled, MPV Cancelled 12/12/17 0834: CBC w Diff MAN DIFF ORDERED, RBC 1.90 L, MCV 109.2 H, MCH 37.6 H, MCHC 34.5, RDW 14.8 H, MPV 7.9, Gran % 90.2 H, Lymphocytes % 6.9 L, Monocytes % 0.4 L, Eosinophils % 2.2, Basophils % 0.3, Absolute Granulocytes 21.9 H, Segmented Neutrophils 78 H, Band Neutrophils 5, Absolute Lymphocytes 1.7, Lymphocytes 3 L, Monocytes 10 H, Absolute Monocytes 0.1, Eosinophils 3, Absolute Eosinophils 0.5, Basophils 1, Absolute Basophils 0.1, Anisocytosis 1+, Macrocytic Cells 3+ 12/11/17 0700: CBC w Diff MAN DIFF ORDERED, RBC 2.38 L, MCV 108.6 H, MCH 37.2 H, MCHC 34.3, RDW 14.3, MPV 8.1, Gran % 87.9 H, Lymphocytes % 8.5 L, Monocytes % 0.4 L, Eosinophils % 2.7, Basophils % 0.5, Absolute Granulocytes 23.9 H, Segmented Neutrophils 78 H, Band Neutrophils 1, Absolute Lymphocytes 2.3, Lymphocytes 14 L, Monocytes 3, Absolute Monocytes 0.1, Eosinophils 4, Absolute Eosinophils 0.7, Absolute Basophils 0.1, Platelet Estimate VERIFIED BY SMEAR, Anisocytosis 1+, Macrocytic Cells 1+ Microbiology 12/13 1333 UPPER RESP: Surveillance Culture - COLB 12/13 1333 GI: Surveillance Culture - CAN Cancelled: PATIENT REFUSED Microbiology 12/13 1333 UPPER RESP: Surveillance Culture - COLB 12/13 1333 GI: Surveillance Culture - CAN Cancelled: PATIENT REFUSED Vital Signs Date Time Temp Pulse Resp B/P B/P Pulse O2 O2 Flow FiO2 Mean Ox Delivery Rate 12/13 1145 98.4 72 20 120/60 96 Room Air 12/13 1115 98.5 80 20 126/70 96 12/13 0800 Room Air 12/13 0645 98.3 72 20 98/50 95 Room Air 12/12 2336 80 114/52 12/12 2310 98.7 92 20 120/60 95 12/12 1810 98.5 79 12 110/58 93 Room Air 12/12 1600 Room Air
[2017-12-13 16:00] VITALS: BP 124/65
[2017-12-13 22:00] VITALS: BP 112/63
[2017-12-14 05:30] LABS: ABSOLUTE BASOPHIL COUNT 0.1 /CUMM (0.0-0.2); ABSOLUTE EOSINOPHIL COUNT 0.6 /CUMM (0.0-0.7); ABSOLUTE LYMPH COUNT 2.3 /CUMM (1.2-3.4); BASOPHIL % 0.2 % (0.0-2.0); EOSINOPHIL % 1.3 % (0-5); GRANULOCYTE % 91.6 % (42.2-75.2); HEMATOCRIT 26.9 % (42-52); MEAN CORPUSCULAR HGB 35.1 PG (27.0-31.0); MEAN CORPUSCULAR HGB CONC 34.2 G/DL (33.0-37.0); MEAN CORPUSCULAR VOLUME 102.7 FL (80.0-94.0); MEAN PLATELET VOLUME 7.5 FL (7.4-10.4); PLATELET COUNT 276 /CUMM (130-400); RBC DISTRIBUTION WIDTH 21.7 % (11.5-14.5); RED BLOOD CELL CT 2.62 /CUMM (4.70-6.10)
[2017-12-14 06:00] VITALS: BP 120/55
[2017-12-14 08:00] VITALS: BP 120/56
--- NOTE | 2017-12-14 08:34 | PN- Housestaff ---
Subjective Follow-up For: Erosive esophagitis status post BiCAP/clipping 3 Varicella-zoster of the right sacral area Nonspecific myeloproliferative disorder Complaints: no complaints Subjective: Patient is seen and examined at the bedside. He does not have any active complaints. But he was little bit confused and he was asking why he is here. Probably he was having baseline dementia. Review of Systems Constitutional: Denies: no symptoms. Objective Last 24 Hrs of Vital Signs/I&O Vital Signs Date Time Temp Pulse Resp B/P B/P Pulse O2 O2 Flow FiO2 Mean Ox Delivery Rate 12/14 0936 120/49 12/14 08 97.8 82 19 120/56 94 Nasal 2.0L Cannula 12/14 08 94 Nasal 2.0L Cannula 12/14 0600 98.0 70 24 120/55 96 Nasal 2.0L Cannula 12/14 0400 96 Nasal 2.0L Cannula 12/13 2200 98.3 106 30 112/63 95 Room Air 12/13 1600 98 Nasal 2.0L Cannula 12/13 1600 98.1 89 30 124/65 98 Nasal 2.0L Cannula 12/13 1145 98.4 72 20 120/60 96 Room Air 12/13 1115 98.5 80 20 126/70 96 Intake & Output 12/14 1600 12/14 0800 12/14 0000 Intake Total 260 70 Output Total 140 Balance 120 70 Intake, IV 260 60 Intake, Oral 10 Output, Urine 140 Physical Exam General Appearance: Alert, Oriented X3, Cooperative, No Acute Distress Cardiovascular: Normal S1, Normal S2 Lungs: Clear to Auscultation, Normal Air Movement Neurological: Normal Speech Extremities: No Clubbing, No Cyanosis, No Edema Current Medications: Current Medications Sig/Som Start time Last Medication Dose Route Stop Time Status Admin Acetaminophen 0 .STK-MED ONE 12/14 621 DC IV Acetaminophen 1,000 MG Q6P PRN 12/14 0200 AC N/A 1 UNIT IV Acetaminophen 1,000 MG Q4-6 PRN 12/13 2014 DC 12/13 N/A 1 UNIT IV 2007 Acetaminophen 0 .STK-MED ONE 12/13 2008 DC IV Acetaminophen 1,000 MG Q6P PRN 12/12 1600 DC 12/13 N/A 1 UNIT IV 1456 Acetaminophen 650 MG Q8P PRN 12/04 1530 AC 12/14 PO 0052 Docusate Sodium 100 MG DAILY NEEDED PRN 12/085 AC 12/08 PO 2107 Ondansetron HCl 4 MG Q6P PRN 12/04 1530 AC 12/13 IV 1924 Pantoprazole Sodium 40 MG Q5H 12/12 1115 AC 12/14 Sodium Chloride 100 [place] 0810 Polyethylene Glycol 17 GM DAILY 12/06 1450 AC 12/14 PO 0936 Senna 187 MG AT BEDTIME 12/07 2099 AC 12/12 PO 2044 Sucralfate 1 GM 4 TIMES/DAY 12/05 2099 AC 12/14 PO 0936 Tamsulosin HCl 0.4 MG DAILY 12/05 0900 AC 12/14 PO 0936 Valacyclovir HCl 1,000 MG TID 12/14 1020 AC PO Last 24 Hrs of Lab/Diego Results Last 24 Hrs of Labs/Mics: Laboratory Tests 12/14/17 0410: Anion Gap 9, Estimated GFR > 60, Glucose 95, Calcium 7.9 L, Phosphorus 3.6, Magnesium 2.0, Total Bilirubin 0.8, AST 23, ALT 43, Albumin 3.0 L, CBC w Diff MAN DIFF ORDERED, RBC 2.62 L, MCV 102.7 H, MCH 35.1 H, MCHC 34.2, RDW 21.7 H , MPV 7.5, Gran % 91.6 H, Lymphocytes % 4.8 L, Monocytes % 2.1, Eosinophils % 1.3, Basophils % 0.2, Absolute Granulocytes 43.0 H, Segmented Neutrophils 76 H , Band Neutrophils 9 H, Absolute Lymphocytes 2.3, Lymphocytes 5 L, Monocytes 3 , Absolute Monocytes 1.0 H, Eosinophils 5, Absolute Eosinophils 0.6, Basophils 1, Absolute Basophils 0.1, Metamyelocytes 1, Nucleated RBCs 1 H, Platelet Estimate ADEQUATE, Polychromasia 1+, Poikilocytosis 1+, Anisocytosis 2+, Macrocytic Cells 2+ 12/13/17 1436: CBC w Diff MAN DIFF ORDERED, RBC 2.51 L, MCV 101.7 H, MCH 34.5 H, MCHC 34.0, RDW 21.8 H, MPV 7.3 L, Gran % 89.4 H, Lymphocytes % 5.5 L, Monocytes % 2.3, Eosinophils % 2.4, Basophils % 0.4, Absolute Granulocytes 30.1 H, Segmented Neutrophils 82 H, Band Neutrophils 3, Absolute Lymphocytes 1.8, Lymphocytes 8 L, Monocytes 2, Absolute Monocytes 0.8 H, Eosinophils 1, Absolute Eosinophils 0.8, Basophils 1, Absolute Basophils 0.1, Metamyelocytes 2 H, Myelocytes 1 H, Nucleated RBCs 2 H, Platelet Estimate ADEQUATE, Polychromasia 1+, Basophilic Stippling RARE, Anisocytosis 2+ Microbiology 12/13 1333 UPPER RESP: Surveillance Culture - COLB 12/13 1333 GI: Surveillance Culture - CAN Cancelled: PATIENT REFUSED Assessment/Plan Assessment: Patient is a 86-year-old male with past medical history of dementia, regional enteritis, BPH, history of C. difficile, GERD, Nonspecific myeloproliferative disorder primarily admitted because of protracted hiccough, dysphagia and substernal chest discomfort. He was noncompliant with his medication including hydroxyurea. After admission he was given symptomatic treatment for handcuffs and hydroxyurea was started. He underwent upper GI endoscopy on 12/04/2017 which show evidence of severe esophagitis and hiatal hernia, follow-up pathology report was negative for any evidence of H. pylori infection or malignancy. In between he was having melena and remained confused so it was decided to hold on hydroxyurea. Despite that he continued to have melena, thatwhy it was decided to re-scope him. Repeated endoscopy on 12/13/2017, showed erosive esophagitis and a large 2 cm polypoid clot and distal esophagus status post BiCAP/clipping 3; 1 clip fell off. Vital signs-temperature 98.2, pulse 92, respiratory 20, blood pressure 109/56, SPO2 97, intake/output 810/2601 Blood workup-WBC 47,000, hemoglobin 9.2, platelet count 276, serum sodium 138, potassium 4.1, chloride 106, carbon dioxide 22, anion gap 9, BUN 18, creatinine 1.0, glucose 95, calcium 7.9, phosphorus 3.6, magnesium 2.0, total bilirubin 0.8 , AST 23, ALT 43, albumin 3. Problem list - Erosive esophagitis status post BiCAP/clipping 3 Varicella-zoster of the right sacral area Nonspecific myeloproliferative disorder Assessment and plan- * Currently patient is n.p.o., will continue PO medication * Started on Valtrex 1000MG X 3 times daily * Follow GI/hematology recommendations * CBC every 8 hourly with target hemoglobin more than 7 * CODE STATUS-full code Problem List: 1. Anemia 2. Dementia 3. Myeloproliferative disease Pain Ratin Pain Location: N/A Pain Goal: Remain pain free Pain Plan: Avoid NSAIDs Tomorrow's Labs & Rationales: f/u CBC, ICU bundle DVT/Prophylaxis: mechanical, pharmacological
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
--- NOTE | 2017-12-14 12:54 | PN- Att Addend ---
Attending Addendum Attending Brief Note Patient looking and feeling better today, no new issues overnight. No apparent bleeding. His vital signs are stable no fever. No new changes on physical examination except in the skin where he has some vesicles following a dermatome that most likely are related to herpes zoster, treatment was started.. I appreciate GIs input and recommendations. His H&H seems to be stable. We will try clear liquids. If the patient continues stable will be able to be transferred out of the intensive care unit. Intake & Output 12/14 0400 12/12 1600 12/12 040 Intake Total 260 70 492 47 1050 240 Output Total 140 600 500 300 700 Balance 120 70 -80 -410 1000 -460 Intake, Blood 350 Product Intake, IV 260 60 246 86 0253 Intake, Oral 10 30 30 300 240 Number 2 1 7 Bowel Movements Output, Urine 140 600 500 300 700 Current Medications Sig/Som Start time Last Medication Dose Route Stop Time Status Admin Acetaminophen 0 .STK-MED ONE 12/14 621 DC IV Acetaminophen 1,000 MG Q6P PRN 12/14 0200 N/A 1 UNIT IV Acetaminophen 1,000 MG Q4-6 PRN 12/13 2014 DC 12/13 N/A 1 UNIT IV 2007 Acetaminophen 0 .STK-MED ONE 12/13 2008 DC IV Acetaminophen 1,000 MG Q6P PRN 12/12 1600 DC 12/13 N/A 1 UNIT IV 1456 Acetaminophen 650 MG Q8P PRN 12/04 1530 AC 12/14 PO 0052 Docusate Sodium 100 MG DAILY NEEDED PRN 12/08 2115 AC 12/08 PO 210 Ondansetron HCl 4 MG Q6P PRN 12/04 1530 AC 12/13 IV 1924 Pantoprazole Sodium 40 MG Q5H 12/12 1115 AC 12/14 Sodium Chloride 100 ML IV 0810 Polyethylene Glycol 17 GM DAILY 12/06 1450 AC 12/14 PO 36 Senna 187 MG AT BEDTIME 12/07 2100 AC 12/12 PO 2044 Sucralfate 1 GM 4 TIMES/DAY 12/05 2100 AC 12/14 PO 1207 Tamsulosin HCl 0.4 MG DAILY 12/05 0900 AC 12/14 PO 0936 Valacyclovir HCl 1,000 MG TID 12/14 1020 AC 12/14 PO 1206 Laboratory Tests 12/14/17 0410: Anion Gap 9, Estimated GFR > 60, Glucose 95, Calcium 7.9 L, Phosphorus 3.6, Magnesium 2.0, Total Bilirubin 0.8, AST 23, ALT 43, Albumin 3.0 L, CBC w Diff MAN DIFF ORDERED, RBC 2.62 L, MCV 102.7 H, MCH 35.1 H, MCHC 34.2, RDW 21.7 H , MPV 7.5, Gran % 91.6 H, Lymphocytes % 4.8 L, Monocytes % 2.1, Eosinophils % 1.3, Basophils % 0.2, Absolute Granulocytes 43.0 H, Segmented Neutrophils 76 H , Band Neutrophils 9 H, Absolute Lymphocytes 2.3, Lymphocytes 5 L, Monocytes 3 , Absolute Monocytes 1.0 H, Eosinophils 5, Absolute Eosinophils 0.6, Basophils 1, Absolute Basophils 0.1, Metamyelocytes 1, Nucleated RBCs 1 H, Platelet Estimate ADEQUATE, Polychromasia 1+, Poikilocytosis 1+, Anisocytosis 2+, Macrocytic Cells 2+ 12/13/17 1436: CBC w Diff MAN DIFF ORDERED, RBC 2.51 L, MCV 101.7 H, MCH 34.5 H, MCHC 34.0, RDW 21.8 H, MPV 7.3 L, Gran % 89.4 H, Lymphocytes % 5.5 L, Monocytes % 2.3, Eosinophils % 2.4, Basophils % 0.4, Absolute Granulocytes 30.1 H, Segmented Neutrophils 82 H, Band Neutrophils 3, Absolute Lymphocytes 1.8, Lymphocytes 8 L, Monocytes 2, Absolute Monocytes 0.8 H, Eosinophils 1, Absolute Eosinophils 0.8, Basophils 1, Absolute Basophils 0.1, Metamyelocytes 2 H, Myelocytes 1 H, Nucleated RBCs 2 H, Platelet Estimate ADEQUATE, Polychromasia 1+, Basophilic Stippling RARE, Anisocytosis 2+ 12/13/17 0800: Anion Gap 6, Estimated GFR > 60, BUN/Creatinine Ratio 26.4 H, CBC w Diff MAN DIFF ORDERED, RBC 1.89 L, MCV 106.9 H, MCH 36.6 H, MCHC 34.3, RDW 17.7 H, MPV 7.5, Gran % 86.8 H, Lymphocytes % 7.6 L, Monocytes % 2.8, Eosinophils % 2.2, Basophils % 0.6, Absolute Granulocytes 22.6 H, Segmented Neutrophils 76 H , Band Neutrophils 1, Absolute Lymphocytes 2.0, Lymphocytes 16 L, Monocytes 4, Absolute Monocytes 0.7 H, Eosinophils 2, Absolute Eosinophils 0.6, Basophils 1, Absolute Basophils 0.2, Nucleated RBCs 1 H, Anisocytosis 2+, Macrocytic Cells 4 + 12/12/17 2236: CBC w Diff MAN DIFF ORDERED, RBC 1.97 L, MCV 105.6 H, MCH 36.4 H, MCHC 34.4, RDW 17.6 H, MPV 7.5, Gran % 88.3 H, Lymphocytes % 7.5 L, Monocytes % 1.8, Eosinophils % 2.3, Basophils % 0.1, Absolute Granulocytes 22.6 H, Segmented Neutrophils 90 H, Band Neutrophils 1, Absolute Lymphocytes 1.9, Lymphocytes 6 L, Absolute Monocytes 0.5, Eosinophils 2, Absolute Eosinophils 0.6, Absolute Basophils 0, Metamyelocytes 1, Platelet Estimate VERIFIED BY SMEAR, Anisocytosis 1+, Macrocytic Cells 1+, Fld Total RBCs Counted 100 12/12/17 1101: PT 12.1, INR 1.11 12/12/17 1100: CBC w Diff Cancelled, WBC Cancelled, RBC Cancelled, Hgb Cancelled, Hct Cancelled , MCV Cancelled, MCH Cancelled, MCHC Cancelled, RDW Cancelled, Plt Count Cancelled, MPV Cancelled 12/12/17 0834: CBC w Diff MAN DIFF ORDERED, RBC 1.90 L, MCV 109.2 H, MCH 37.6 H, MCHC 34.5, RDW 14.8 H, MPV 7.9, Gran % 90.2 H, Lymphocytes % 6.9 L, Monocytes % 0.4 L, Eosinophils % 2.2, Basophils % 0.3, Absolute Granulocytes 21.9 H, Segmented Neutrophils 78 H, Band Neutrophils 5, Absolute Lymphocytes 1.7, Lymphocytes 3 L, Monocytes 10 H, Absolute Monocytes 0.1, Eosinophils 3, Absolute Eosinophils 0.5, Basophils 1, Absolute Basophils 0.1, Anisocytosis 1+, Macrocytic Cells 3+ Microbiology 12/13 1333 UPPER RESP: Surveillance Culture - COLB 12/13 1333 GI: Surveillance Culture - CAN Cancelled: PATIENT REFUSED Microbiology 12/13 1333 UPPER RESP: Surveillance Culture - COLB 09/01 1334 GI: Surveillance Culture - CAN Cancelled: PATIENT REFUSED Vital Signs Date Time Temp Pulse Resp B/P B/P Pulse O2 O2 Flow FiO2 Mean Ox Delivery Rate 12/14 0936 120/49 12/14 08 97.8 82 19 120/56 94 Nasal 2.0L Cannula 12/14 08 94 Nasal 2.0L Cannula 12/14 06 98.0 70 24 120/55 96 Nasal 2.0L Cannula 12/14 0400 96 Nasal 2.0L Cannula 12/13 2200 98.3 106 30 112/63 95 Room Air 12/13 1600 98 Nasal 2.0L Cannula 12/13 1600 98.1 89 30 124/65 98 Nasal 2.0L Cannula Also have hematology follow the patient.
[2017-12-14 14:33] LABS: ABSOLUTE BASOPHIL COUNT 0.1 /CUMM (0.0-0.2); ABSOLUTE EOSINOPHIL COUNT 0.7 /CUMM (0.0-0.7); ABSOLUTE GRANULOCYTE CT 38.2 /CUMM (1.4-6.5); ABSOLUTE LYMPH COUNT 2.2 /CUMM (1.2-3.4); ABSOLUTE MONOCYTE COUNT 1.2 /CUMM (0.10-0.60); BASOPHIL % 0.2 % (0.0-2.0); EOSINOPHIL % 1.6 % (0-5); GRANULOCYTE % 90.1 % (42.2-75.2); HEMATOCRIT 27.8 % (42-52); MEAN CORPUSCULAR HGB 35.3 PG (27.0-31.0); MEAN CORPUSCULAR HGB CONC 34.5 G/DL (33.0-37.0); MEAN CORPUSCULAR VOLUME 102.4 FL (80.0-94.0); PLATELET COUNT 283 /CUMM (130-400); RED BLOOD CELL CT 2.71 /CUMM (4.70-6.10)
[2017-12-14 14:49] LABS: WHITE BLOOD CELL COUNT 42.4 /CUMM (4.8-10.8)
[2017-12-14 16:00] VITALS: BP 112/58
[2017-12-14 21:32] VITALS: BP 132/68
[2017-12-15 06:00] VITALS: BP 130/55
[2017-12-15 07:44] LABS: ABSOLUTE BASOPHIL COUNT 0.1 /CUMM (0.0-0.2); ABSOLUTE EOSINOPHIL COUNT 0.8 /CUMM (0.0-0.7); ABSOLUTE GRANULOCYTE CT 27.5 /CUMM (1.4-6.5); ABSOLUTE LYMPH COUNT 1.8 /CUMM (1.2-3.4); ABSOLUTE MONOCYTE COUNT 0.2 /CUMM (0.10-0.60); BASOPHIL % 0.2 % (0.0-2.0); EOSINOPHIL % 2.7 % (0-5); GRANULOCYTE % 90.4 % (42.2-75.2); HEMATOCRIT 24.2 % (42-52); MEAN CORPUSCULAR HGB 34.9 PG (27.0-31.0); MEAN CORPUSCULAR VOLUME 102.9 FL (80.0-94.0); MEAN PLATELET VOLUME 7.3 FL (7.4-10.4); PLATELET COUNT 245 /CUMM (130-400); RBC DISTRIBUTION WIDTH 21.5 % (11.5-14.5); RED BLOOD CELL CT 2.36 /CUMM (4.70-6.10)
[2017-12-15 08:29] LABS: WHITE BLOOD CELL COUNT 30.4 /CUMM (4.8-10.8)
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
--- NOTE | 2017-12-15 11:23 | PN- Gastroenterology ---
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 12/09/17: [id number] VIEWS- Nonobstructive bowel gas pattern. 12/12/17: [id number] VIEWS- No evidence of obstruction or free air. 12/13/17: *EGD to D3 with BiCAP/clipping x 4- Impression: 1. 1+ erosive esophagitis from 30-38 cm/Z line. 2. *Large 2 cm oozing polypoid clot in the distal esophagus at 35 cm-> BiCAP/ clipping x 3 (1 of the 3 esophageal clips fell off). 3. 1 cm sliding hiatal hernia pouch, from 38-39 cm. 4. *8 mm oozing visible vessel/clot with BRB, towards the lesser curvature aspect of the antrum, without any underlying ulceration-> BiCAP/clipping x 1. I felt that the above findings were most likely secondary to an underlying qualitative platelet defect, perhaps related to the patient's myeloproliferative disorder, although he had an adequate number of platelets.
[2017-12-15 13:33] VITALS: BP 103/58
[2017-12-15 13:36] LABS: ABSOLUTE BASOPHIL COUNT 0 /CUMM (0.0-0.2); ABSOLUTE EOSINOPHIL COUNT 0.8 /CUMM (0.0-0.7); ABSOLUTE GRANULOCYTE CT 25.9 /CUMM (1.4-6.5); ABSOLUTE LYMPH COUNT 1.9 /CUMM (1.2-3.4); BASOPHIL % 0.2 % (0.0-2.0); EOSINOPHIL % 2.8 % (0-5); GRANULOCYTE % 87.3 % (42.2-75.2); MEAN CORPUSCULAR HGB 34.5 PG (27.0-31.0); MEAN CORPUSCULAR HGB CONC 33.6 G/DL (33.0-37.0); MEAN CORPUSCULAR VOLUME 102.6 FL (80.0-94.0); MEAN PLATELET VOLUME 7.1 FL (7.4-10.4); PLATELET COUNT 245 /CUMM (130-400); RBC DISTRIBUTION WIDTH 21.5 % (11.5-14.5); RED BLOOD CELL CT 2.44 /CUMM (4.70-6.10)
[2017-12-15 13:38] LABS: WHITE BLOOD CELL COUNT 29.7 /CUMM (4.8-10.8)
--- NOTE | 2017-12-15 13:40 | PN- Att Addend ---
Attending Addendum Attending Brief Note Patient transferred out of the intensive care unit seems stable at this point, being followed by GI. Stool for occult blood was rechecked today. Hemoglobin and hematocrit being followed closely. No major changes on physical. Vital signs are stable. Last white count 30,400 hemoglobin 8.2 hematocrit 24.2 platelet count 245,000. Will have hematology review the case again in the morning to see if this GI bleeding has any thing to do with his myeloproliferative disease or any other blood dyscrasia. Intake & Output 12/15 1600 12/15 1600 12/14 04012/13 1600 12/13 040 Intake Total 400 400 850 70 520 90 Output Total 370 125 140 600 500 Balance 30 275 710 70 -80 -410 Intake, Blood 350 Product Intake, IV 160 160 400 60 140 60 Intake, Oral 240 240 450 10 30 30 Number 1 0 2 1 Bowel Movements Output, Urine 370 125 140 600 500 Current Medications Sig/Som Start time Last Medication Dose Route Stop Time Status Admin Acetaminophen 0 .STK-MED ONE 12/15 1030 DC IV Acetaminophen 0 .STK-MED ONE 12/14 2232 DC IV Acetaminophen 1,000 MG Q6P PRN 12/14 0200 AC 12/15 N/A 1 UNIT IV 1033 Acetaminophen 650 MG Q8P PRN 12/04 1530 DC 12/15 PO 0359 Docusate Sodium 100 MG DAILY NEEDED PRN 12/08 2115 AC 12/08 PO 210 Ondansetron HCl 4 MG Q6P PRN 12/04 1530 AC 12/13 IV 1924 Oxycodone/ 1 TAB ONCE ONE 12/15 1300 DC Acetaminophen PO 12/15 1301 Pantoprazole Sodium 40 MG Q5H 12/12 1115 AC 12/15 Sodium Chloride 100 ML IV 0909 Polyethylene Glycol 17 GM DAILY 12/06 1450 AC 12/15 PO 0910 Senna 187 MG AT BEDTIME 12/07 2099 AC 12/14 PO 210 Sucralfate 1 GM 4 TIMES/DAY 12/05 2099 AC 12/15 PO 1242 Tamsulosin HCl 0.4 MG DAILY 12/05 09 AC 12/15 PO 0912 Valacyclovir HCl 1,000 MG TID 12/14 1020 AC 12/15 PO 0909 Laboratory Tests 12/15/17 1300: CBC w Diff NO MAN DIFF REQ, RBC 2.44 L, MCV 102.6 H, MCH 34.5 H, MCHC 33.6, RDW 21.5 H, MPV 7.1 L, Gran % 87.3 H, Lymphocytes % 6.5 L, Monocytes % 3.2, Eosinophils % 2.8, Basophils % 0.2, Absolute Granulocytes 25.9 H, Absolute Lymphocytes 1.9, Absolute Monocytes 1.0 H, Absolute Eosinophils 0.8, Absolute Basophils 0 12/15/17 0614: Anion Gap 8, Estimated GFR > 60, Glucose 86, Calcium 7.7 L, Phosphorus 3.2, Magnesium 2.0, Total Bilirubin 0.7, AST 15 L, ALT 32, Albumin 2.8 L, CBC w Diff MAN DIFF ORDERED, RBC 2.36 L, MCV 102.9 H, MCH 34.9 H, MCHC 34.0, RDW 21.5 H, MPV 7.3 L, Gran % 90.4 H, Lymphocytes % 6.0 L, Monocytes % 0.7 L, Eosinophils % 2.7, Basophils % 0.2, Absolute Granulocytes 27.5 H, Segmented Neutrophils 81 H, Band Neutrophils 5, Absolute Lymphocytes 1.8, Lymphocytes 7 L, Monocytes 3, Absolute Monocytes 0.2, Eosinophils 3, Absolute Eosinophils 0.8, Absolute Basophils 0.1, Metamyelocytes 1, Nucleated RBCs 1 H, Polychromasia 1+, Basophilic Stippling RARE, Anisocytosis 2+ 12/14/17 1421: CBC w Diff MAN DIFF ORDERED, RBC 2.71 L, MCV 102.4 H, MCH 35.3 H, MCHC 34.5, RDW 22.0 H, MPV 7.0 L, Gran % 90.1 H, Lymphocytes % 5.3 L, Monocytes % 2.8, Eosinophils % 1.6, Basophils % 0.2, Absolute Granulocytes 38.2 H, Segmented Neutrophils 72, Band Neutrophils 7 H, Absolute Lymphocytes 2.2, Lymphocytes 9 L, Monocytes 4, Absolute Monocytes 1.2 H, Eosinophils 3, Absolute Eosinophils 0.7, Basophils 2, Absolute Basophils 0.1, Metamyelocytes 3 H, Polychromasia 1+, Poikilocytosis 1+, Anisocytosis 2+, Macrocytic Cells 4+ 12/14/17 0410: Anion Gap 9, Estimated GFR > 60, Glucose 95, Calcium 7.9 L, Phosphorus 3.6, Magnesium 2.0, Total Bilirubin 0.8, AST 23, ALT 43, Albumin 3.0 L, CBC w Diff MAN DIFF ORDERED, RBC 2.62 L, MCV 102.7 H, MCH 35.1 H, MCHC 34.2, RDW 21.7 H , MPV 7.5, Gran % 91.6 H, Lymphocytes % 4.8 L, Monocytes % 2.1, Eosinophils % 1.3, Basophils % 0.2, Absolute Granulocytes 43.0 H, Segmented Neutrophils 76 H , Band Neutrophils 9 H, Absolute Lymphocytes 2.3, Lymphocytes 5 L, Monocytes 3 , Absolute Monocytes 1.0 H, Eosinophils 5, Absolute Eosinophils 0.6, Basophils 1, Absolute Basophils 0.1, Metamyelocytes 1, Nucleated RBCs 1 H, Platelet Estimate ADEQUATE, Polychromasia 1+, Poikilocytosis 1+, Anisocytosis 2+, Macrocytic Cells 2+ 12/13/17 1436: CBC w Diff MAN DIFF ORDERED, RBC 2.51 L, MCV 101.7 H, MCH 34.5 H, MCHC 34.0, RDW 21.8 H, MPV 7.3 L, Gran % 89.4 H, Lymphocytes % 5.5 L, Monocytes % 2.3, Eosinophils % 2.4, Basophils % 0.4, Absolute Granulocytes 30.1 H, Segmented Neutrophils 82 H, Band Neutrophils 3, Absolute Lymphocytes 1.8, Lymphocytes 8 L, Monocytes 2, Absolute Monocytes 0.8 H, Eosinophils 1, Absolute Eosinophils 0.8, Basophils 1, Absolute Basophils 0.1, Metamyelocytes 2 H, Myelocytes 1 H, Nucleated RBCs 2 H, Platelet Estimate ADEQUATE, Polychromasia 1+, Basophilic Stippling RARE, Anisocytosis 2+ 12/13/17 0800: Anion Gap 6, Estimated GFR > 60, BUN/Creatinine Ratio 26.4 H, CBC w Diff MAN DIFF ORDERED, RBC 1.89 L, MCV 106.9 H, MCH 36.6 H, MCHC 34.3, RDW 17.7 H, MPV 7.5, Gran % 86.8 H, Lymphocytes % 7.6 L, Monocytes % 2.8, Eosinophils % 2.2, Basophils % 0.6, Absolute Granulocytes 22.6 H, Segmented Neutrophils 76 H , Band Neutrophils 1, Absolute Lymphocytes 2.0, Lymphocytes 16 L, Monocytes 4, Absolute Monocytes 0.7 H, Eosinophils 2, Absolute Eosinophils 0.6, Basophils 1, Absolute Basophils 0.2, Nucleated RBCs 1 H, Anisocytosis 2+, Macrocytic Cells 4 + 12/12/172235: CBC w Diff MAN DIFF ORDERED, RBC 1.97 L, MCV 105.6 H, MCH 36.4 H, MCHC 34.4, RDW 17.6 H, MPV 7.5, Gran % 88.3 H, Lymphocytes % 7.5 L, Monocytes % 1.8, Eosinophils % 2.3, Basophils % 0.1, Absolute Granulocytes 22.6 H, Segmented Neutrophils 90 H, Band Neutrophils 1, Absolute Lymphocytes 1.9, Lymphocytes 6 L, Absolute Monocytes 0.5, Eosinophils 2, Absolute Eosinophils 0.6, Absolute Basophils 0, Metamyelocytes 1, Platelet Estimate VERIFIED BY SMEAR, Anisocytosis 1+, Macrocytic Cells 1+, Fld Total RBCs Counted 100 Microbiology 12/13 135 UPPER RESP: Surveillance Culture - COMP 12/13 1333 GI: Surveillance Culture - CAN Cancelled: PATIENT REFUSED Microbiology 12/13 1354 UPPER RESP: Surveillance Culture - COMP 12/13 1333 GI: Surveillance Culture - CAN Cancelled: PATIENT REFUSED Vital Signs Date Time Temp Pulse Resp B/P B/P Pulse O2 O2 Flow FiO2 Mean Ox Delivery Rate 12/15 133 98.0 77 18 103/58 94 Room Air 12/15 0912 82 130/66 12/15 0600 97.6 75 20 130/55 97 Room Air 12/14 2132 97.5 80 20 132/68 95 Room Air 12/14 1600 97.7 84 22 112/58 95 Room Air
[2017-12-15 21:44] LABS: ABSOLUTE BASOPHIL COUNT 0.1 /CUMM (0.0-0.2); ABSOLUTE EOSINOPHIL COUNT 0.9 /CUMM (0.0-0.7); ABSOLUTE LYMPH COUNT 2.2 /CUMM (1.2-3.4); ABSOLUTE MONOCYTE COUNT 0.9 /CUMM (0.10-0.60); BASOPHIL % 0.3 % (0.0-2.0); EOSINOPHIL % 2.8 % (0-5); MEAN CORPUSCULAR HGB 34.7 PG (27.0-31.0); MEAN CORPUSCULAR HGB CONC 33.8 G/DL (33.0-37.0); MEAN CORPUSCULAR VOLUME 102.4 FL (80.0-94.0); MEAN PLATELET VOLUME 7.3 FL (7.4-10.4); PLATELET COUNT 243 /CUMM (130-400); RBC DISTRIBUTION WIDTH 21.4 % (11.5-14.5); RED BLOOD CELL CT 2.45 /CUMM (4.70-6.10)
[2017-12-15 22:27] VITALS: BP 124/64
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
--- NOTE | 2017-12-16 06:50 | PN- Hematology ---
Subjective Subjective: Offers no new complaints, 12 point review of systems unchanged Objective Vital Signs and I&Os Vital Signs Date Time Temp Pulse Resp B/P B/P Pulse O2 O2 Flow FiO2 Mean Ox Delivery Rate 12/15 2227 98.3 90 20 124/64 95 Room Air 12/15 1333 98.0 77 18 103/58 94 Room Air 12/15 0912 82 130/66 Intake & Output 12/16 0800 12/16 0000 12/15 1600 12/15 0800 12/15 0000 12/14 1600 Intake Total 680 980 400 400 590 Output Total 800 850 220 125 Balance -120 130 180 275 590 Intake, IV 200 260 160 160 140 Intake, Oral 480 720 240 240 450 Number 2 3 1 0 Bowel Movements Output, Urine 800 850 220 125 Gen.: in NAD ENT: Sclera anicteric Chest: Normal respiratory effort, decreased breath sounds Cor: RRR, no extra sounds Abdomen: Soft, bowel sounds present, no tenderness, no rebound Extremities: Without clubbing, cyanosis, or asymmetric edema Neurology: Alert and oriented 3, Current Medications: Current Medications Sig/Som Start time Last Medication Dose Route Stop Time Status Admin Acetaminophen 0 .STK-MED ONE 12/15 191 DC IV Acetaminophen 0 .STK-MED ONE 12/15 1030 DC IV Acetaminophen 1,000 MG Q6P PRN 12/14 0200 AC 12/15 N/A 1 UNIT IV 191 Acetaminophen 650 MG Q8P PRN 12/04 1530 DC 12/15 PO 0359 Docusate Sodium 100 MG DAILY NEEDED PRN 12/08 2115 AC 12/08 PO 210 Ferrous Sulfate 325 MG DAILY 12/15 1800 AC 12/15 PO 191 Ketorolac 0 .STK-MED ONE 12/15 2254 DC Tromethamine .ROUTE Ketorolac 30 MG ONCE ONE 12/15 2230 DC 12/15 Tromethamine IV 12/15 223 2254 Omeprazole 40 MG BID 12/15 2100 AC 12/15 PO 202 Ondansetron HCl 4 MG ONCE PRN 12/15 1730 AC PO Ondansetron HCl 4 MG Q6P PRN 12/04 1530 DC 12/13 IV 1924 Oxycodone/ 1 TAB ONCE ONE 12/15 1300 DC 12/15 Acetaminophen PO 12/15 1301 1354 Pantoprazole Sodium 40 MG Q5H 12/12 1115 DC 12/15 Sodium Chloride 100 ML IV 1354 Polyethylene Glycol 17 GM DAILY 12/06 1450 AC 12/15 PO 909 Senna 187 MG AT BEDTIME 12/07 2099 AC 12/15 PO 2021 Sucralfate 1 GM 4 TIMES/DAY 12/05 2099 AC 12/15 PO 2021 Tamsulosin HCl 0.4 MG DAILY 12/05 0900 AC 12/15 PO 911 Valacyclovir HCl 1,000 MG TID 12/14 1020 AC 12/15 PO 2021 Results Last 24 Hours of Lab Results: Laboratory Tests 12/15 Hematology CBC w Diff MAN DIFF ORDERED Cancelled WBC (4.8 - 10.8 /CUMM) 31.0 *H Cancelled RBC (4.70 - 6.10 /CUMM) 2.45 L Cancelled Hgb (14.0 - 18.0 G/DL) 8.5 L Cancelled Hct (42 - 52 %) 25.0 L Cancelled MCV (80.0 - 94.0 FL) 102.4 H Cancelled MCH (27.0 - 31.0 PG) 34.7 H Cancelled MCHC (33.0 - 37.0 G/DL) 33.8 Cancelled RDW (11.5 - 14.5 %) 21.4 H Cancelled Plt Count (130 - 400 /CUMM) 243 Cancelled MPV (7.4 - 10.4 FL) 7.3 L Cancelled Gran % (42.2 - 75.2 %) 87.0 H Lymphocytes % (20.5 - 51.1 %) 6.9 L Monocytes % (1.7 - 9.3 %) 3.0 Eosinophils % (0 - 5 %) 2.8 Basophils % (0.0 - 2.0 %) 0.3 Absolute Granulocytes (1.4 - 6.5 /CUMM) 27.0 H Segmented Neutrophils (42.2 - 75.2 %) 82 H Band Neutrophils (0.0 - 5.0 %) 5 Absolute Lymphocytes (1.2 - 3.4 /CUMM) 2.2 Lymphocytes (20.5 - 51.1 %) 7 L Monocytes (1.7 - 9.3 %) 3 Absolute Monocytes (0.10 - 0.60 /CUMM) 0.9 H Eosinophils (0 - 5.0 %) 1 Absolute Eosinophils (0.0 - 0.7 /CUMM) 0.9 Basophils (0.0 - 2.0 %) 1 Absolute Basophils (0.0 - 0.2 /CUMM) 0.1 Metamyelocytes (0.0 - 1.0 %) 1 Nucleated RBCs (0.0 - 0.0 /100WBC) 4 H Platelet Estimate (ADEQUATE) ADEQUATE Polychromasia 1+ Hypochromic-Microcytic 1+ Basophilic Stippling 1+ Anisocytosis 2+ Macrocytic Cells 1+ 12/15 1300 Hematology CBC w Diff NO MAN DIFF REQ WBC (4.8 - 10.8 /CUMM) 29.7 H RBC (4.70 - 6.10 /CUMM) 2.44 L Hgb (14.0 - 18.0 G/DL) 8.4 L Hct (42 - 52 %) 25.0 L MCV (80.0 - 94.0 FL) 102.6 H MCH (27.0 - 31.0 PG) 34.5 H MCHC (33.0 - 37.0 G/DL) 33.6 RDW (11.5 - 14.5 %) 21.5 H Plt Count (130 - 400 /CUMM) 245 MPV (7.4 - 10.4 FL) 7.1 L Gran % (42.2 - 75.2 %) 87.3 H Lymphocytes % (20.5 - 51.1 %) 6.5 L Monocytes % (1.7 - 9.3 %) 3.2 Eosinophils % (0 - 5 %) 2.8 Basophils % (0.0 - 2.0 %) 0.2 Absolute Granulocytes (1.4 - 6.5 /CUMM) 25.9 H Absolute Lymphocytes (1.2 - 3.4 /CUMM) 1.9 Absolute Monocytes (0.10 - 0.60 /CUMM) 1.0 H Absolute Eosinophils (0.0 - 0.7 /CUMM) 0.8 Absolute Basophils (0.0 - 0.2 /CUMM) 0 Assessment/Plan Hematology Assessment/Recommendations: 1. GI bleeding-as noted back Dr. Moon-a functional platelet disorder would be difficult to diagnosed and long-term untreatable, coagulopathy has not been ruled out e.g. acquired von Willebrand's disease has been associated with myeloproliferative disorders Recommend- Check PT PTT and fibrinogen If PTT elevated, would rule out von Willebrand's disease (factor VIII, von Willebrand's antigen, ristocetin cofactor activity) 2. Myeloproliferative disorder-white count and platelet count unchanged-would not add Hydrea at this time
[2017-12-16 07:18] VITALS: BP 117/62
[2017-12-16 07:51] LABS: ABSOLUTE BASOPHIL COUNT 0.1 /CUMM (0.0-0.2); ABSOLUTE EOSINOPHIL COUNT 0.9 /CUMM (0.0-0.7); ABSOLUTE GRANULOCYTE CT 24.6 /CUMM (1.4-6.5); ABSOLUTE MONOCYTE COUNT 0.3 /CUMM (0.10-0.60); BASOPHIL % 0.5 % (0.0-2.0); EOSINOPHIL % 3.2 % (0-5); GRANULOCYTE % 88.2 % (42.2-75.2); HEMATOCRIT 25.1 % (42-52); MEAN CORPUSCULAR HGB 34.8 PG (27.0-31.0); MEAN CORPUSCULAR HGB CONC 33.8 G/DL (33.0-37.0); MEAN CORPUSCULAR VOLUME 103.2 FL (80.0-94.0); MEAN PLATELET VOLUME 7.4 FL (7.4-10.4); PLATELET COUNT 245 /CUMM (130-400); RBC DISTRIBUTION WIDTH 22.2 % (11.5-14.5); RED BLOOD CELL CT 2.43 /CUMM (4.70-6.10); WHITE BLOOD CELL COUNT 27.9 /CUMM (4.8-10.8)
[2017-12-16 09:33] LABS: PT 12.4 SEC (9.4-12.5); PTT 31 SEC (25-37)
--- NOTE | 2017-12-16 10:01 | PN- Att Addend ---
Attending Addendum Attending Brief Note No new complaints. Vital signs stable no fever no new changes on physical exam. last HGB. 8.5 Hct: 25.1 will advance diet, follow hematology and GI recommendations,start disposition plans. Intake & Output 12/16 1600 12/16 0400 12/15 1600 12/15 0400 12/14 1600 12/14 040 Intake Total 680 1380 400 850 70 Output Total 201 240 9069 125 140 Balance -350 -120 310 275 710 70 Intake, IV 200 420 160 400 60 Intake, Oral 480 960 240 450 10 Number 2 3 1 0 Bowel Movements Output, Urine 530 679 3168 125 140 Current Medications Sig/Som Start time Last Medication Dose Route Stop Time Status Admin Acetaminophen 0 .STK-MED ONE 12/15 191 DC IV Acetaminophen 0 .STK-MED ONE 12/15 1030 DC IV Acetaminophen 1,000 MG Q6P PRN 12/14 0200 AC 12/15 N/A 1 UNIT IV 191 Docusate Sodium 100 MG DAILY NEEDED PRN 12/08 2115 AC 12/08 PO 210 Ferrous Sulfate 325 MG DAILY 12/15 1800 AC 12/16 PO 928 Ketorolac 0 .STK-MED ONE 12/15 2254 DC Tromethamine .ROUTE Ketorolac 30 MG ONCE ONE 12/15 2230 DC 12/15 Tromethamine IV 12/15 223 2254 Omeprazole 40 MG BID 12/15 2100 AC 12/16 PO 928 Ondansetron HCl 4 MG ONCE PRN 12/15 1730 AC PO Ondansetron HCl 4 MG Q6P PRN 12/04 1530 DC 12/13 IV 1924 Oxycodone/ 1 TAB ONCE ONE 12/15 1300 DC 12/15 Acetaminophen PO 12/15 1301 1354 Pantoprazole Sodium 40 MG Q5H 12/12 1115 DC 12/15 Sodium Chloride 100 ML IV 1354 Polyethylene Glycol 17 GM DAILY 12/06 1450 AC 12/16 PO 928 Senna 187 MG AT BEDTIME 12/07 2099 AC 12/15 PO 2021 Sucralfate 1 GM 4 TIMES/DAY 12/05 2100 AC 12/16 PO 928 Tamsulosin HCl 0.4 MG DAILY 12/05 0900 AC 12/16 PO 928 Valacyclovir HCl 1,000 MG TID 12/14 1020 AC 12/16 PO 928 Laboratory Tests 12/16/17 0843: PT 12.4, INR 1.14, APTT 31, Fibrinogen Activity 460 H 12/16/17 0823: PT Cancelled, INR Cancelled 12/16/17 0605: Anion Gap 6, Estimated GFR > 60, BUN/Creatinine Ratio 10.0, von Willebrand Factor Pending, CBC w Diff MAN DIFF ORDERED, RBC 2.43 L, MCV 103.2 H, MCH 34.8 H, MCHC 33.8, RDW 22.2 H, MPV 7.4, Gran % 88.2 H, Lymphocytes % 7.1 L, Monocytes % 1.0 L, Eosinophils % 3.2, Basophils % 0.5, Absolute Granulocytes 24.6 H, Segmented Neutrophils 77 H, Band Neutrophils 2, Absolute Lymphocytes 2.0, Lymphocytes 9 L, Monocytes 1 L, Absolute Monocytes 0.3, Eosinophils 4, Absolute Eosinophils 0.9, Basophils 3 H, Absolute Basophils 0.1, Metamyelocytes 1, Platelet Estimate VERIFIED BY SMEAR, Anisocytosis 1+, Macrocytic Cells 1+ 12/15/172058: CBC w Diff MAN DIFF ORDERED, RBC 2.45 L, MCV 102.4 H, MCH 34.7 H, MCHC 33.8, RDW 21.4 H, MPV 7.3 L, Gran % 87.0 H, Lymphocytes % 6.9 L, Monocytes % 3.0, Eosinophils % 2.8, Basophils % 0.3, Absolute Granulocytes 27.0 H, Segmented Neutrophils 82 H, Band Neutrophils 5, Absolute Lymphocytes 2.2, Lymphocytes 7 L, Monocytes 3, Absolute Monocytes 0.9 H, Eosinophils 1, Absolute Eosinophils 0.9, Basophils 1, Absolute Basophils 0.1, Metamyelocytes 1, Nucleated RBCs 4 H, Platelet Estimate ADEQUATE, Polychromasia 1+, Hypochromic-Microcytic 1+, Basophilic Stippling 1+, Anisocytosis 2+, Macrocytic Cells 1+ 12/15/17 2000: CBC w Diff Cancelled, WBC Cancelled, RBC Cancelled, Hgb Cancelled, Hct Cancelled , MCV Cancelled, MCH Cancelled, MCHC Cancelled, RDW Cancelled, Plt Count Cancelled, MPV Cancelled 12/15/17 1300: CBC w Diff NO MAN DIFF REQ, RBC 2.44 L, MCV 102.6 H, MCH 34.5 H, MCHC 33.6, RDW 21.5 H, MPV 7.1 L, Gran % 87.3 H, Lymphocytes % 6.5 L, Monocytes % 3.2, Eosinophils % 2.8, Basophils % 0.2, Absolute Granulocytes 25.9 H, Absolute Lymphocytes 1.9, Absolute Monocytes 1.0 H, Absolute Eosinophils 0.8, Absolute Basophils 0 12/15/17 0614: Anion Gap 8, Estimated GFR > 60, Glucose 86, Calcium 7.7 L, Phosphorus 3.2, Magnesium 2.0, Total Bilirubin 0.7, AST 15 L, ALT 32, Albumin 2.8 L, CBC w Diff MAN DIFF ORDERED, RBC 2.36 L, MCV 102.9 H, MCH 34.9 H, MCHC 34.0, RDW 21.5 H, MPV 7.3 L, Gran % 90.4 H, Lymphocytes % 6.0 L, Monocytes % 0.7 L, Eosinophils % 2.7, Basophils % 0.2, Absolute Granulocytes 27.5 H, Segmented Neutrophils 81 H, Band Neutrophils 5, Absolute Lymphocytes 1.8, Lymphocytes 7 L, Monocytes 3, Absolute Monocytes 0.2, Eosinophils 3, Absolute Eosinophils 0.8, Absolute Basophils 0.1, Metamyelocytes 1, Nucleated RBCs 1 H, Polychromasia 1+, Basophilic Stippling RARE, Anisocytosis 2+ 12/14/17 1421: CBC w Diff MAN DIFF ORDERED, RBC 2.71 L, MCV 102.4 H, MCH 35.3 H, MCHC 34.5, RDW 22.0 H, MPV 7.0 L, Gran % 90.1 H, Lymphocytes % 5.3 L, Monocytes % 2.8, Eosinophils % 1.6, Basophils % 0.2, Absolute Granulocytes 38.2 H, Segmented Neutrophils 72, Band Neutrophils 7 H, Absolute Lymphocytes 2.2, Lymphocytes 9 L, Monocytes 4, Absolute Monocytes 1.2 H, Eosinophils 3, Absolute Eosinophils 0.7, Basophils 2, Absolute Basophils 0.1, Metamyelocytes 3 H, Polychromasia 1+, Poikilocytosis 1+, Anisocytosis 2+, Macrocytic Cells 4+ 12/14/17 0410: Anion Gap 9, Estimated GFR > 60, Glucose 95, Calcium 7.9 L, Phosphorus 3.6, Magnesium 2.0, Total Bilirubin 0.8, AST 23, ALT 43, Albumin 3.0 L, CBC w Diff MAN DIFF ORDERED, RBC 2.62 L, MCV 102.7 H, MCH 35.1 H, MCHC 34.2, RDW 21.7 H , MPV 7.5, Gran % 91.6 H, Lymphocytes % 4.8 L, Monocytes % 2.1, Eosinophils % 1.3, Basophils % 0.2, Absolute Granulocytes 43.0 H, Segmented Neutrophils 76 H , Band Neutrophils 9 H, Absolute Lymphocytes 2.3, Lymphocytes 5 L, Monocytes 3 , Absolute Monocytes 1.0 H, Eosinophils 5, Absolute Eosinophils 0.6, Basophils 1, Absolute Basophils 0.1, Metamyelocytes 1, Nucleated RBCs 1 H, Platelet Estimate ADEQUATE, Polychromasia 1+, Poikilocytosis 1+, Anisocytosis 2+, Macrocytic Cells 2+ 12/13/17 1436: CBC w Diff MAN DIFF ORDERED, RBC 2.51 L, MCV 101.7 H, MCH 34.5 H, MCHC 34.0, RDW 21.8 H, MPV 7.3 L, Gran % 89.4 H, Lymphocytes % 5.5 L, Monocytes % 2.3, Eosinophils % 2.4, Basophils % 0.4, Absolute Granulocytes 30.1 H, Segmented Neutrophils 82 H, Band Neutrophils 3, Absolute Lymphocytes 1.8, Lymphocytes 8 L, Monocytes 2, Absolute Monocytes 0.8 H, Eosinophils 1, Absolute Eosinophils 0.8, Basophils 1, Absolute Basophils 0.1, Metamyelocytes 2 H, Myelocytes 1 H, Nucleated RBCs 2 H, Platelet Estimate ADEQUATE, Polychromasia 1+, Basophilic Stippling RARE, Anisocytosis 2+ Microbiology 12/13 1354 UPPER RESP: Surveillance Culture - COMP 12/13 1333 GI: Surveillance Culture - CAN Cancelled: PATIENT REFUSED Microbiology 12/13 1354 UPPER RESP: Surveillance Culture - COMP 12/13 1333 GI: Surveillance Culture - CAN Cancelled: PATIENT REFUSED Vital Signs Date Time Temp Pulse Resp B/P B/P Pulse O2 O2 Flow FiO2 Mean Ox Delivery Rate 12/16 09 76 120/74 12/16 0718 98.2 70 20 117/62 94 Room Air 12/15 2227 98.3 90 20 124/64 95 Room Air 12/15 1333 98.0 77 18 103/58 94 Room Air
[2017-12-16] MEDS ORDERED: FERROUS SULFAT325 M2 PO (10:45)
[2017-12-16] MEDS ORDERED: MIRALAX119 GM PO (10:46)
[2017-12-16] MEDS ORDERED: SENNA-TIME S T1 EACH PO (10:46)
[2017-12-16 14:04] VITALS: BP 94/50
[2017-12-16 21:30] VITALS: BP 98/54
[2017-12-17 06:47] VITALS: BP 104/60
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
[2017-12-17 08:18] LABS: ABSOLUTE BASOPHIL COUNT 0.1 /CUMM (0.0-0.2); ABSOLUTE EOSINOPHIL COUNT 0.9 /CUMM (0.0-0.7); ABSOLUTE GRANULOCYTE CT 26.4 /CUMM (1.4-6.5); ABSOLUTE LYMPH COUNT 1.9 /CUMM (1.2-3.4); ABSOLUTE MONOCYTE COUNT 0.1 /CUMM (0.10-0.60); BASOPHIL % 0.2 % (0.0-2.0); EOSINOPHIL % 2.9 % (0-5); GRANULOCYTE % 90.2 % (42.2-75.2); HEMATOCRIT 25.3 % (42-52); MEAN CORPUSCULAR HGB 34.5 PG (27.0-31.0); MEAN CORPUSCULAR HGB CONC 33.4 G/DL (33.0-37.0); MEAN CORPUSCULAR VOLUME 103.4 FL (80.0-94.0); MEAN PLATELET VOLUME 7.4 FL (7.4-10.4); PLATELET COUNT 243 /CUMM (130-400); RED BLOOD CELL CT 2.45 /CUMM (4.70-6.10); WHITE BLOOD CELL COUNT 29.3 /CUMM (4.8-10.8)
[2017-12-17 13:54] VITALS: BP 105/75
--- NOTE | 2017-12-17 16:31 | PN- Att Addend ---
Attending Addendum Attending Brief Note Patient offers no new complaints., The stools are still slightly positive for occult blood but his H&H seems to be stable. Vital signs are stable no fever. No changes in physical examination. Still monitoring closely the CBBC and still looking for a place for disposition plans for short-term rehabilitation Intake & Output 12/17 0400 12/16 04012/15 0400 Intake Total 480 350 327 919 0615 400 Output Total 950 900 087 593 0028 125 Balance -470 -550 250 -120 310 275 Intake, IV 100 100 200 420 160 Intake, Oral 480 250 500 480 960 240 Number 1 2 3 2 3 1 Bowel Movements Output, Urine 950 900 175 143 8159 125 Current Medications Sig/Som Start time Last Medication Dose Route Stop Time Status Admin Acetaminophen 0 .STK-MED ONE 12/17 114 DC IV Acetaminophen 0 .STK-MED ONE 12/17 2035 DC IV Acetaminophen 1,000 MG Q6P PRN 12/14 0200 AC 12/17 N/A 1 UNIT IV 1148 Docusate Sodium 100 MG DAILY NEEDED PRN 12/08 2115 AC 12/08 PO 210 Ferrous Sulfate 325 MG DAILY 12/15 1800 AC 12/17 PO 925 Omeprazole 40 MG BID 12/15 2099 AC 12/17 PO 924 Ondansetron HCl 4 MG ONCE PRN 12/15 1730 AC PO Polyethylene Glycol 17 GM DAILY 12/06 1450 AC 12/17 PO 925 Senna 187 MG AT BEDTIME 12/07 2099 AC 12/16 PO 203 Sucralfate 1 GM 4 TIMES/DAY 12/05 2099 AC 12/17 PO 132 Tamsulosin HCl 0.4 MG DAILY 12/05 09 AC 12/17 PO 0926 Valacyclovir HCl 1,000 MG TID 12/14 1020 AC 12/17 PO 1329 Laboratory Tests 12/17/17 0623: Anion Gap 5, Estimated GFR > 60, BUN/Creatinine Ratio 9.0, CBC w Diff MAN DIFF ORDERED, RBC 2.45 L, MCV 103.4 H, MCH 34.5 H, MCHC 33.4, RDW 22.0 H, MPV 7.4 , Gran % 90.2 H, Lymphocytes % 6.5 L, Monocytes % 0.2 L, Eosinophils % 2.9, Basophils % 0.2, Absolute Granulocytes 26.4 H, Segmented Neutrophils 82 H, Band Neutrophils 5, Absolute Lymphocytes 1.9, Lymphocytes 8 L, Monocytes 2, Absolute Monocytes 0.1, Eosinophils 1, Absolute Eosinophils 0.9, Basophils 1, Absolute Basophils 0.1, Metamyelocytes 1, Nucleated RBCs 1 H, Platelet Estimate ADEQUATE, Polychromasia 1+, Anisocytosis 1+, Macrocytic Cells FEW 12/16/17 0843: PT 12.4, INR 1.14, APTT 31, Fibrinogen Activity 460 H 12/16/17 0823: PT Cancelled, INR Cancelled 12/16/17 0605: Anion Gap 6, Estimated GFR > 60, BUN/Creatinine Ratio 10.0, von Willebrand Factor 143, CBC w Diff MAN DIFF ORDERED, RBC 2.43 L, MCV 103.2 H, MCH 34.8 H, MCHC 33.8, RDW 22.2 H, MPV 7.4, Gran % 88.2 H, Lymphocytes % 7.1 L, Monocytes % 1.0 L, Eosinophils % 3.2, Basophils % 0.5, Absolute Granulocytes 24.6 H, Segmented Neutrophils 77 H, Band Neutrophils 2, Absolute Lymphocytes 2.0, Lymphocytes 9 L, Monocytes 1 L, Absolute Monocytes 0.3, Eosinophils 4, Absolute Eosinophils 0.9, Basophils 3 H, Absolute Basophils 0.1, Metamyelocytes 1, Platelet Estimate VERIFIED BY SMEAR, Anisocytosis 1+, Macrocytic Cells 1+ 12/15/172058: CBC w Diff MAN DIFF ORDERED, RBC 2.45 L, MCV 102.4 H, MCH 34.7 H, MCHC 33.8, RDW 21.4 H, MPV 7.3 L, Gran % 87.0 H, Lymphocytes % 6.9 L, Monocytes % 3.0, Eosinophils % 2.8, Basophils % 0.3, Absolute Granulocytes 27.0 H, Segmented Neutrophils 82 H, Band Neutrophils 5, Absolute Lymphocytes 2.2, Lymphocytes 7 L, Monocytes 3, Absolute Monocytes 0.9 H, Eosinophils 1, Absolute Eosinophils 0.9, Basophils 1, Absolute Basophils 0.1, Metamyelocytes 1, Nucleated RBCs 4 H, Platelet Estimate ADEQUATE, Polychromasia 1+, Hypochromic-Microcytic 1+, Basophilic Stippling 1+, Anisocytosis 2+, Macrocytic Cells 1+ 09/03/18 2000: CBC w Diff Cancelled, WBC Cancelled, RBC Cancelled, Hgb Cancelled, Hct Cancelled , MCV Cancelled, MCH Cancelled, MCHC Cancelled, RDW Cancelled, Plt Count Cancelled, MPV Cancelled 12/15/17 1300: CBC w Diff NO MAN DIFF REQ, RBC 2.44 L, MCV 102.6 H, MCH 34.5 H, MCHC 33.6, RDW 21.5 H, MPV 7.1 L, Gran % 87.3 H, Lymphocytes % 6.5 L, Monocytes % 3.2, Eosinophils % 2.8, Basophils % 0.2, Absolute Granulocytes 25.9 H, Absolute Lymphocytes 1.9, Absolute Monocytes 1.0 H, Absolute Eosinophils 0.8, Absolute Basophils 0 12/15/17 0614: Anion Gap 8, Estimated GFR > 60, Glucose 86, Calcium 7.7 L, Phosphorus 3.2, Magnesium 2.0, Total Bilirubin 0.7, AST 15 L, ALT 32, Albumin 2.8 L, CBC w Diff MAN DIFF ORDERED, RBC 2.36 L, MCV 102.9 H, MCH 34.9 H, MCHC 34.0, RDW 21.5 H, MPV 7.3 L, Gran % 90.4 H, Lymphocytes % 6.0 L, Monocytes % 0.7 L, Eosinophils % 2.7, Basophils % 0.2, Absolute Granulocytes 27.5 H, Segmented Neutrophils 81 H, Band Neutrophils 5, Absolute Lymphocytes 1.8, Lymphocytes 7 L, Monocytes 3, Absolute Monocytes 0.2, Eosinophils 3, Absolute Eosinophils 0.8, Absolute Basophils 0.1, Metamyelocytes 1, Nucleated RBCs 1 H, Polychromasia 1+, Basophilic Stippling RARE, Anisocytosis 2+ Vital Signs Date Time Temp Pulse Resp B/P B/P Pulse O2 O2 Flow FiO2 Mean Ox Delivery Rate 12/17 1354 98.1 108 20 105/75 92 Room Air 12/17 09 92 104/60 12/17 0647 97.8 92 18 104/60 94 12/16 2130 97.9 92 18 98/54 97 Room Air
[2017-12-17 21:27] VITALS: BP 106/80
[2017-12-17 23:11] LABS: ABSOLUTE BASOPHIL COUNT 0.1 /CUMM (0.0-0.2); ABSOLUTE EOSINOPHIL COUNT 0.8 /CUMM (0.0-0.7); ABSOLUTE GRANULOCYTE CT 27.9 /CUMM (1.4-6.5); ABSOLUTE LYMPH COUNT 1.8 /CUMM (1.2-3.4); ABSOLUTE MONOCYTE COUNT 0.6 /CUMM (0.10-0.60); BASOPHIL % 0.3 % (0.0-2.0); EOSINOPHIL % 2.5 % (0-5); MEAN CORPUSCULAR HGB 35.2 PG (27.0-31.0); MEAN CORPUSCULAR VOLUME 103.7 FL (80.0-94.0); MEAN PLATELET VOLUME 6.8 FL (7.4-10.4); PLATELET COUNT 261 /CUMM (130-400); RBC DISTRIBUTION WIDTH 21.7 % (11.5-14.5); RED BLOOD CELL CT 2.51 /CUMM (4.70-6.10)
[2017-12-17 23:20] LABS: GRANULOCYTE % 89.4 % (42.2-75.2); WHITE BLOOD CELL COUNT 31.2 /CUMM (4.8-10.8)
[2017-12-18 06:34] VITALS: BP 110/76
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
[2017-12-18 08:27] LABS: ABSOLUTE BASOPHIL COUNT 0.1 /CUMM (0.0-0.2); ABSOLUTE GRANULOCYTE CT 29.5 /CUMM (1.4-6.5); ABSOLUTE MONOCYTE COUNT 0.8 /CUMM (0.10-0.60); BASOPHIL % 0.3 % (0.0-2.0); EOSINOPHIL % 2.9 % (0-5); GRANULOCYTE % 88.5 % (42.2-75.2); HEMATOCRIT 27.1 % (42-52); MEAN CORPUSCULAR HGB 35.4 PG (27.0-31.0); MEAN CORPUSCULAR HGB CONC 34.3 G/DL (33.0-37.0); MEAN CORPUSCULAR VOLUME 103.3 FL (80.0-94.0); MEAN PLATELET VOLUME 7.2 FL (7.4-10.4); PLATELET COUNT 231 /CUMM (130-400); RBC DISTRIBUTION WIDTH 22.4 % (11.5-14.5); RED BLOOD CELL CT 2.63 /CUMM (4.70-6.10)
[2017-12-18 08:48] LABS: WHITE BLOOD CELL COUNT 33.4 /CUMM (4.8-10.8)
--- NOTE | 2017-12-18 13:10 | PN- Att Addend ---
Attending Addendum Attending Brief Note No new issues. Patient seems comfortable. Vital signs are stable no fever. No major changes on physical examination. Hemoglobin 9.3 hematocrit 27.1 which is stable even though he still shows some positive stools for occult blood. I checked with GI and we will think that the patient is stable and following CBCs periodically patient could go to the residential, residential is hesitant to take the patient, Intake & Output 12/18 0400 Intake Total 490 250 770 350 600 680 Output Total 550 1050 1250 900 350 800 Balance -60 -800 -480 -550 250 -120 Intake, IV 10 10 50 100 100 200 Intake, Oral 480 240 720 250 500 480 Number 0 2 3 2 3 2 Bowel Movements Output, Urine 550 1050 1250 900 350 800 Current Medications Sig/Som Start time Last Medication Dose Route Stop Time Status Admin Acetaminophen 0 .STK-MED ONE 12/17 2106 DC IV Acetaminophen 1,000 MG Q6P PRN 12/14 0200 AC 12/17 N/A 1 UNIT IV 2105 Acetaminophen/ 1 TAB Q4P PRN 12/18 0115 AC 12/18 Butalbital/Caffeine PO 55 Docusate Sodium 100 MG DAILY NEEDED PRN 12/08 2114 AC 12/08 PO 210 Ferrous Sulfate 325 MG DAILY 12/15 1800 AC 12/18 PO 0955 Omeprazole 40 MG BID 12/15 2099 AC 12/18 PO 0955 Ondansetron HCl 4 MG ONCE PRN 12/15 1730 AC PO Polyethylene Glycol 17 GM DAILY 12/06 1450 AC 12/17 PO 925 Senna 187 MG AT BEDTIME 12/07 2099 AC 12/16 PO 2035 Sucralfate 1 GM 4 TIMES/DAY 12/05 2099 AC 12/18 PO 1231 Tamsulosin HCl 0.4 MG DAILY 12/05 09 AC 12/18 PO 0956 Valacyclovir HCl 1,000 MG TID 12/14 1020 AC 12/18 PO 0955 Laboratory Tests 12/18/17 0710: CBC w Diff MAN DIFF ORDERED, RBC 2.63 L, MCV 103.3 H, MCH 35.4 H, MCHC 34.3, RDW 22.4 H, MPV 7.2 L, Gran % 88.5 H, Lymphocytes % 5.9 L, Monocytes % 2.4, Eosinophils % 2.9, Basophils % 0.3, Absolute Granulocytes 29.5 H, Segmented Neutrophils 81 H, Band Neutrophils 4, Absolute Lymphocytes 2.0, Lymphocytes 8 L, Monocytes 6, Absolute Monocytes 0.8 H, Absolute Eosinophils 1.0, Basophils 1 , Absolute Basophils 0.1, Platelet Estimate VERIFIED BY SMEAR, Anisocytosis 1+, Macrocytic Cells 1+ 12/17/17 2251: CBC w Diff MAN DIFF ORDERED, RBC 2.51 L, MCV 103.7 H, MCH 35.2 H, MCHC 34.0, RDW 21.7 H, MPV 6.8 L, Gran % 89.4 H, Lymphocytes % 5.7 L, Monocytes % 2.1, Eosinophils % 2.5, Basophils % 0.3, Absolute Granulocytes 27.9 H, Segmented Neutrophils 83 H, Band Neutrophils 6 H, Absolute Lymphocytes 1.8, Lymphocytes 4 L, Monocytes 2, Absolute Monocytes 0.6, Eosinophils 3, Absolute Eosinophils 0.8, Basophils 2, Absolute Basophils 0.1, Platelet Estimate VERIFIED BY SMEAR, Polychromasia 1+, Anisocytosis 2+, Macrocytic Cells 1+, Fld Total RBCs Counted 100 12/17/17 0623: Anion Gap 5, Estimated GFR > 60, BUN/Creatinine Ratio 9.0, CBC w Diff MAN DIFF ORDERED, RBC 2.45 L, MCV 103.4 H, MCH 34.5 H, MCHC 33.4, RDW 22.0 H, MPV 7.4 , Gran % 90.2 H, Lymphocytes % 6.5 L, Monocytes % 0.2 L, Eosinophils % 2.9, Basophils % 0.2, Absolute Granulocytes 26.4 H, Segmented Neutrophils 82 H, Band Neutrophils 5, Absolute Lymphocytes 1.9, Lymphocytes 8 L, Monocytes 2, Absolute Monocytes 0.1, Eosinophils 1, Absolute Eosinophils 0.9, Basophils 1, Absolute Basophils 0.1, Metamyelocytes 1, Nucleated RBCs 1 H, Platelet Estimate ADEQUATE, Polychromasia 1+, Anisocytosis 1+, Macrocytic Cells FEW 12/16/17 0843: PT 12.4, INR 1.14, APTT 31, Fibrinogen Activity 460 H 12/16/17 0823: PT Cancelled, INR Cancelled 12/16/17 0605: Anion Gap 6, Estimated GFR > 60, BUN/Creatinine Ratio 10.0, von Willebrand Factor 143, CBC w Diff MAN DIFF ORDERED, RBC 2.43 L, MCV 103.2 H, MCH 34.8 H, MCHC 33.8, RDW 22.2 H, MPV 7.4, Gran % 88.2 H, Lymphocytes % 7.1 L, Monocytes % 1.0 L, Eosinophils % 3.2, Basophils % 0.5, Absolute Granulocytes 24.6 H, Segmented Neutrophils 77 H, Band Neutrophils 2, Absolute Lymphocytes 2.0, Lymphocytes 9 L, Monocytes 1 L, Absolute Monocytes 0.3, Eosinophils 4, Absolute Eosinophils 0.9, Basophils 3 H, Absolute Basophils 0.1, Metamyelocytes 1, Platelet Estimate VERIFIED BY SMEAR, Anisocytosis 1+, Macrocytic Cells 1+ 12/15/172058: CBC w Diff MAN DIFF ORDERED, RBC 2.45 L, MCV 102.4 H, MCH 34.7 H, MCHC 33.8, RDW 21.4 H, MPV 7.3 L, Gran % 87.0 H, Lymphocytes % 6.9 L, Monocytes % 3.0, Eosinophils % 2.8, Basophils % 0.3, Absolute Granulocytes 27.0 H, Segmented Neutrophils 82 H, Band Neutrophils 5, Absolute Lymphocytes 2.2, Lymphocytes 7 L, Monocytes 3, Absolute Monocytes 0.9 H, Eosinophils 1, Absolute Eosinophils 0.9, Basophils 1, Absolute Basophils 0.1, Metamyelocytes 1, Nucleated RBCs 4 H, Platelet Estimate ADEQUATE, Polychromasia 1+, Hypochromic-Microcytic 1+, Basophilic Stippling 1+, Anisocytosis 2+, Macrocytic Cells 1+ 12/15/171999: CBC w Diff Cancelled, WBC Cancelled, RBC Cancelled, Hgb Cancelled, Hct Cancelled , MCV Cancelled, MCH Cancelled, MCHC Cancelled, RDW Cancelled, Plt Count Cancelled, MPV Cancelled Vital Signs Date Time Temp Pulse Resp B/P B/P Pulse O2 O2 Flow FiO2 Mean Ox Delivery Rate 12/18 0956 84 110/72 12/18 0634 97.4 87 20 110/76 94 12/17 2127 98.0 102 20 106/80 94 Room Air 12/17 1354 98.1 108 20 105/75 92 Room Air
[2017-12-18 14:15] VITALS: BP 123/72
[2017-12-18] MEDS ORDERED: VALTREX1000 MG PO (14:34)
[2017-12-18] MEDS ORDERED: FLOMAX0.4 M1 PO (14:38)
[2017-12-18] MEDS ORDERED: BUTALB-ACETAMI1 EACH PO (14:38)
[2017-12-18 14:48] VITALS: BP 123/72
== END 2017-12-18 15:12 | DRG 391 ==
LOC: DELPENDDIS → ERH 11:51 → 2NA 14:26 → 2NB 14:26 → 1NO 14:26 → ERHI 14:26 → ENRESERV 15:42 → ENTRNSPT 17:36 → EDTRNSPTSTS 17:47 → EDTRNSPT 17:47 → 1NO 17:57 → CMPTRNSPT 18:03 → ENTRNSPT 12-06 15:45 → EDTRNSPTSTS 12-06 15:53 → EDTRNSPT 12-06 15:53 → 2NA 12-06 16:04 → CMPTRNSPT 12-06 16:14 → 2NA 12-06 18:01 → CRI 12-13 13:32 → ENTRNSPT 12-14 18:13 → 2NB 12-14 18:53 → CMPTRNSPT 12-14 19:03 → ENPENDDIS 12-16 13:06 → 2NB 12-18 15:12
PROVIDERS: Internal Medicine; Internal Medicine Adolescent Medicine; Internal Medicine Endocrinology, Diabetes & Metabolism; Physical Medicine & Rehabilitation; Physician Assistant; Preventive Medicine Addiction Medicine
PROC: 0DB68ZX Excision of Stomach, Via Natural or Artificial Opening Endoscopic, Diagnostic (ICD-10-PCS; principal; 2017-12-08)
PROC: 30233N1 Transfusion of Nonautologous Red Blood Cells into Peripheral Vein, Percutaneous Approach (ICD-10-PCS; 2017-12-12)
PROC: 0W3P8ZZ Control Bleeding in Gastrointestinal Tract, Via Natural or Artificial Opening Endoscopic (ICD-10-PCS; 2017-12-13)
DX: K21.0 Gastro-esophageal reflux disease with esophagitis (principal); K22.11 Ulcer of esophagus with bleeding; G93.40 Encephalopathy, unspecified; C94.6 Myelodysplastic disease, not elsewhere classified; E87.3 Alkalosis; E87.1 Hypo-osmolality and hyponatremia; D62 Acute posthemorrhagic anemia; E46 Unspecified protein-calorie malnutrition; F05 Delirium due to known physiological condition; B02.9 Zoster without complications; R13.10 Dysphagia, unspecified; I95.9 Hypotension, unspecified; K44.9 Diaphragmatic hernia without obstruction or gangrene; D72.829 Elevated white blood cell count, unspecified; R06.6 Hiccough; Z68.25 Body mass index [BMI] 25.0-25.9, adult; N40.0 Benign prostatic hyperplasia without lower urinary tract symptoms; F03.90 Unspecified dementia, unspecified severity, without behavioral disturbance, psychotic disturbance, mood disturbance, and anxiety; Z91.81 History of falling; Z86.19 Personal history of other infectious and parasitic diseases; Z85.820 Personal history of malignant melanoma of skin; Z90.49 Acquired absence of other specified parts of digestive tract; Z96.651 Presence of right artificial knee joint; Z89.422 Acquired absence of other left toe(s); Z87.81 Personal history of (healed) traumatic fracture; Z88.0 Allergy status to penicillin
CPT/HCPCS: 1NP; 2NAP; 2NBP; 84133; 84300; 85246; CCU; 36415; 36592; 71046; 74021; 74177; 82436; 82570; 86920; 87015; 87040; 87045; 87899; 87899-59; 88305; 88312; 93005; 93010; 93308; 93321; 97110-GO; 97116-GO; 97161-GP; 97530-GO; J0131; J1644; J1885; J2405; J2765; J3101; J3490; P9016